=== PATIENT | female | born 1970 | race African-American/Black ===

== ENCOUNTER 2024-06-07 21:04 | Observation (INO) | payer OTHER, SELFPAY ==
[2024-06-07 17:12] VITALS: BP 107/69
--- NOTE | 2024-06-07 18:44 | ED.GENMED ---
History of Present Illness
General
Chief Complaint: Catheter/Tube Problem
Time Seen by Provider: 06/07/24 18:08
History of Present Illness
History of Present Illness:
53-year-old woman presenting to the emergency department with trach dislodgment. All history is obtained from patient's family at bedside. States that in March she had a trach and PEG placed after a cardiac arrest and stroke. She was sent to
[facility] 3 weeks ago for rehab. There unfortunately patient was not evaluated by respiratory therapist or repair miller regarding patient's tracheostomy care. Per family she was on room air and intermittent blow-by. She was never on a vent at
rehab. She should that intermittently patient was pulling at her tracheostomy tube. They are unsure when she officially pulled it out but they last saw in place yesterday. No capping trials were completed.
Phy Exam
Physical Exam
Physical Exam:
GENERAL: in no acute distress
HEENT: normocephalic, extraocular movements intact, moist oral mucosa
NECK: Prior tracheostomy site that appears closed
RESPIRATORY: no respiratory distress, clear to auscultation bilaterally
CARDIOVASCULAR: regular rate and rhythm
ABDOMEN/: soft, non-distended, non-tender to palpation, no rebound or guarding
NEUROLOGIC: awake and alert
SKIN: warm
Course
Orders/Labs/Results
Orders:
Orders
06/07/24 19:05
Basic Metabolic Panel Urgent
CBC/With Diff [Complete Blood Count/With Diff] Urgent
Vital Signs
Initial and Last Documented VS:
Initial Vital Signs
Temp Pulse Resp BP Pulse Ox
99.4 F 109 18 107/69 99
06/07/24 17:12 06/07/24 17:12 06/07/24 17:12 06/07/24 17:12 06/07/24 17:12
Last Documented Vital Signs
Temp Pulse Resp BP Pulse Ox
99.4 F 109 18 107/69 99
06/07/24 17:12 06/07/24 17:12 06/07/24 17:12 06/07/24 17:12 06/07/24 17:12
MDM/Problems Addressed
Differential Diagnosis Includes:
Patient is a 53-year-old woman with trach PEG placed in March presenting to the emergency department after she removed her trach. Patient did have a 7.[address] We did attempt to replace it with both the 6 5 and 7 5 appears to be close
as there was significant resistance and no clear opening. Her pulse ox is normal and patient does appear resting comfortably with no respiratory distress. No emergent need for endotracheal intubation. I did discuss with ENT on-call regarding
options. He recommended placing a 4.0. I did update patient's family members at bedside of this. However since patient has been on room air most of the time and would remove the blow-by the family would prefer not to have a tracheostomy in
place. Since that patient has never had a trial patient will need to be admitted for monitoring while there is no tracheostomy in place. Discussed with hospitalist who excepted patient to their service
*Critical Care Note
Total Time (30-74mins, 75-104mins- exclusive of procedures): Not Applicable
ED Attending Note
-
Portions of this chart may have been created with voice recognition software.� Occasional wrong word or��sound alike� substitutions may have occurred due to the inherent limitations of voice recognition software.
Discharge Plan
Departure
Patient Disposition: Admit
Date of Disposition: 06/07/24
Time of Disposition: 19:16
Presentation/result/management discussed w/ accepting MD/DO: Hospitalist
Discharge Problem:
Tracheostomy complication
Referrals:
Wicho Aaron DO [Family Provider] -
Interventions
Interventions:
*Risk Screen - Suicide Last Done: 06/07/24 17:12
*General Assessment Last Done: 06/07/24 17:12
*Neglect/Abuse Screening Last Done: 06/07/24 17:12
FE-Liwzxl-Nzmimsluzf Assessment Last Done: 06/07/24 18:25
ED-Female Genitourinary Assessment Last Done: 06/07/24 18:25
Discharge Date and Time
Print Language: GREENLANDIC
[2024-06-07 19:33] LABS: % Basophils 0.4 % (0-2); % Eosinophils 1.3 % (0-6); % Immature Granulocytes 0.4 % (0-0.5); % Lymphocytes 46.5 % (20.5-51.1); % Monocytes 7.3 % (1.7-9.3); % Neutrophils 44.1 % (42.2-75.2); Absolute Eosinophils 0.1 10^3/uL (0-0.7); Absolute Lymphocytes 2.6 10^3/uL (1.2-3.4); Absolute Monocytes 0.4 10^3/uL (0.1-0.6); Absolute Neutrophils 2.4 10^3/uL (1.4-6.5); Hematocrit 25.3 % (37.0-47.0); Hemoglobin 8.5 g/dL (12.0-16.0); Mean Corp Hgb Conc. 33.6 g/dL (33.0-37.0); Mean Corpuscular Hgb 28.9 pg (27.0-31.0); Mean Corpuscular Volume 86.1 fL (81.0-99.0); Mean Platelet Volume 8.6 fL (7.4-10.4); Nucleated Red Blood Cells % 0 %; Platelet Count 355 10^3/uL (130-400); Red Blood Cell Count 2.94 10^6/uL (4.20-5.40); Red Cell Dist. Width 13.3 % (11.5-14.5); White Blood Cell Count 5.5 10^3/uL (4.8-10.8)
[2024-06-07 19:54] LABS: Blood Urea Nitrogen 21 mg/dl (7-17); Calcium 10.3 mg/dl (8.4-10.2); Carbon Dioxide 34 mmol/L (22-30); Chloride 95 mmol/L (98-107); Glucose 118 mg/dl (70-99); Sodium 132 mmol/L (135-145); eGFR 25.11
--- NOTE | 2024-06-07 19:55 | HPS.HSE ---
Family Physician
-
Family Physician: Wicho Aaron, DO
Chief Complaint
-
pulled trach
History of Present Illness
Ms. Janette Santos is a 53 yo woman with hx PE/cardiac arrest and CVA March 2024 s/p trach/PEG now at [facility] and pulled out her tracheostomy tube at some point over past 24 hours.
History obtained from patient at bedside. They saw patient with trach in yesterday but she has been pulling at it, concern is that it has been becoming dislodged. Dr. Cosby tried to replace trach but was difficult even with smaller size, difficult
to find hole. Case discussed with ENT. Family states patient has been on room air, therefore requesting to avoid continued attempts to replace.
Medical History
Past Medical History
Past Medical History: Reports Other (PE/cardiac arrest and CVA March 2024 s/p trach/PEG now at [facility])
Past Surgical History: Reports Other
Social History
Tobacco: Non-smoker
Alcohol: None
Family History
Family History: Not pertinent
Allergies / Home Medications
Allergies reflects when Allergies were last updated in [employer].
Home Medications with original date entered in [employer]
Allergy/Medication List:
Allergies
Allergy/AdvReac Type Severity Reaction Status Date / Time
acetaminophen Allergy Unknown Verified 06/07/24 20:20
oxycodone Allergy Unknown Verified 06/07/24 20:20
Home Medications
apixaban 5 mg tablet 5 mg feeding tube BID 06/07/24
bisacodyl 10 mg rectal suppository 10 mg SC DAILY PRN constipation 06/07/24
carvedilol 6.25 mg tablet 6.25 mg feeding tube BID 06/07/24
divalproex 125 mg capsule,delayed release sprinkle (Depakote Sprinkles) 125 mg PO Q12 06/07/24
hydralazine 10 mg tablet 10 mg feeding tube TID 06/07/24
hydroxyzine HCl 10 mg/5 mL oral solution 10 mg feeding tube QID 06/07/24
insulin glargine 100 unit/mL subcutaneous solution 8 unit SC QPM 06/07/24
lorazepam 1 mg tablet (Ativan) 1 mg feeding tube Q4H 06/07/24
Review of Systems
-
Unable to obtain full review of systems at this time due to: Patient Non-verbal
History Source: Patient
Physical Exam
Vital Signs
Vital Signs
Temp Pulse Resp BP Pulse Ox
99.4 F 109 18 107/69 99
06/07/24 17:12 06/07/24 17:12 06/07/24 17:12 06/07/24 17:12 06/07/24 17:12
Physical Exam
General: Other (patient sedated but awakens briefly to voice )
HEENT: PERRLA
Respiratory: Clear; No Wheezes
Cardiac: S1/S2 and Regular Rhythm
GI: Soft, Non Tender and Peg Tube
Musculoskeletal: No Edema
Skin: Warm and Dry; No Rash
Neuro: Sedated
Psych: Calm
Laboratory Results
-
06/07/24 19:21
06/07/24 19:21
Data Reviewed
-
Diagnostic Radiology: Report Reviewed by me
Lab Data: Labs Reviewed by me
Impression/Plan
-
Ms. Janette Santos is a 53 yo woman with hx cardiac arrest and CVA March 2024 s/p trach/PEG now at [facility] and pulled out her tracheostomy tube at some point over past 24 hours.
Triage VS: T 99.4, P 109, RR 18, BP 107/69, SpO2 99%
LABS: WBC 5.5, Hg 8.5, PLT 355, Na 132, Cl 95, CO2 34, BUN 21, Cr 2.3, Glucose 118
Pulled Trach
-per family, patient has been on room air and intermittent blow by; she was not on a vent at rehab. ENT recommending placing a 4.0; family would want to avoid this. Per ER provider, finding hole for trach was difficult, unclear how long it had
been dislodged
-admit to tele with pulse ox monitoring
-ENT consult
ESRD on HD
-Renal consulted; patient receives HD MWF
Pulmonary Embolism
-continue NEUROLOGY HOSPITALIST Eliquis
s/p cardiac arrest
CVA with PEG/ Trach
-TF to start tomorrow
-family hoping to change NH placement (live in [place])
Essential HTN
-NEUROLOGY HOSPITALIST Hydralazine
Anxiety/Agitation
-continue NEUROLOGY HOSPITALIST Depakote
-patient's home meds state 1mg Ativan q 4 hours; she is very sedated. Family is hopeful that now that she won't be bothered by trach, can lower Ativan dosing
-will write for 1mg [id number] here with PRN
-also has PRN Hydroxyzine (was written as standing at [place])
Anemia
-unclear baseline
-add on iron studies
IDDM
-hold NEUROLOGY HOSPITALIST lantus as will not receive TF tonight
-ISS low
DVT PPx NEUROLOGY HOSPITALIST Eliquis
FULL CODE - confirmed with family at admission
Nephew also gave me his number,
[2024-06-07] MEDS: DEPAKOTE SPRINKLE 125 MG TUBE (20:59)
[2024-06-07] MEDS: ELIQUIS 5 MG TUBE (20:59)
[2024-06-07 21:10] LABS: ALT (SGPT) 26 U/L (0-35); AST (SGOT) 33 U/L (14-36); Albumin 3.2 g/dl (3.5-5.0); Alkaline Phosphatase 82 U/L (38-126); Direct Bilirubin 0.4 mg/dl (0.0-0.4); Iron 75 ug/dl (37-170); Potassium 3.3 mmol/L (3.5-5.1); Total Bilirubin 0.7 mg/dl (0.2-1.3); Total Protein 6.3 g/dl (6.3-8.2)
[2024-06-07 21:17] LABS: Percent Saturation 36 % (20-50); Total Iron Binding Capacity 203 ug/dl (265-497)
[2024-06-07] MEDS: KCL ELIXIR 20 MEQ TUBE (21:57)
[2024-06-07 22:02] LABS: Vitamin B12 740 pg/ml (239-931)
[2024-06-07 22:13] VITALS: BP 104/70
[2024-06-08] VITALS (34 sets, daily range): BP systolic 88–200; BP diastolic 49–178
[2024-06-08] MEDS: ATIVAN 1 MG TUBE ×2 (01:36→08:30)
[2024-06-08] MEDS: COREG 6.25 MG TUBE (01:36)
[2024-06-08] MEDS: APRESOLINE 10 MG TUBE (01:37)
[2024-06-08 05:24] LABS: Glucose - Point of Care 130 mg/dl (70-99)
[2024-06-08 07:01] LABS: Hematocrit 25.9 % (37.0-47.0); Hemoglobin 8.3 g/dL (12.0-16.0); Mean Corpuscular Volume 90.6 fL (81.0-99.0); Mean Platelet Volume 9.2 fL (7.4-10.4); Platelet Count 419 10^3/uL (130-400); Red Blood Cell Count 2.86 10^6/uL (4.20-5.40); Red Cell Dist. Width 13.3 % (11.5-14.5); White Blood Cell Count 4.8 10^3/uL (4.8-10.8)
[2024-06-08 07:23] LABS: Blood Urea Nitrogen 23 mg/dl (7-17); Calcium 10.4 mg/dl (8.4-10.2); Carbon Dioxide 35 mmol/L (22-30); Chloride 96 mmol/L (98-107); Glucose 125 mg/dl (70-99); Potassium 3.5 mmol/L (3.5-5.1); Sodium 135 mmol/L (135-145); eGFR 22.71
[2024-06-08] MEDS: ELIQUIS 5 MG TUBE (08:30)
[2024-06-08 08:56] LABS: Glucose - Point of Care 122 mg/dl (70-99)
--- NOTE | 2024-06-08 09:08 | W.CON.NEPH ---
Consultation
-
Date/Time Consultation Requested: 06/08/24 0005
Date/Time Consultation Performed: 06/08/24929
Requesting Provider: Susy Cloud
Performing Provider: Cookie Montiel
Reason for Consultation: ESRD
Medical History
-
Chief Complaint: Dislodged Trach
History of Present Illness:
53 yo woman with hx ESRD on MWF HD, IDDM, HTN on coreg, hydralazine and midodrine on HD days, PE/cardiac arrest on AC with ELiquis, CVA March 2024 s/p trach/PEG now at [facility] brought in for dislodgement of her tracheostomy tube at some point
over past 24 hours.
History obtained from chart. Reportedly patient with trach in yesterday but she has been pulling at it, concern is that it has been becoming dislodged. It was difficult to replace trach despite down sizing, and family wants not to try replacing it.
She is admitted for further observation.
She is on Depakote and Keppra for ?SZDO. Chronic anemia on Aranesp. Pt has expressive aphasia and unable to provide history.
NO noted fever, chills. Not on O2.
Past Medical History
PE/cardiac arrest and CVA March 2024 s/p trach/PEG
Past Surgical History: Other (trach, peg)
Social History
Tobacco: Non-Smoker
Alcohol: None
Living: Long-Term (now at [facility])
Family History
Family History: Unable to Obtain
Allergies / Home Medications
Allergy/AdvReac Type Severity Reaction Status Date / Time
acetaminophen Allergy Unknown Verified 06/07/24 20:20
oxycodone Allergy Unknown Verified 06/07/24 20:20
�Medication �Instructions �Recorded �Confirmed �Type
apixaban 5 mg tablet 5 mg feeding tube BID 06/07/24 06/07/24 History
bisacodyl 10 mg rectal suppository 10 mg MO DAILYPRN PRN constipation 06/07/24 06/08/24 History
carvedilol 6.25 mg tablet 6.25 mg feeding tube BID 06/07/24 06/07/24 History
divalproex 125 mg capsule,delayed 125 mg Q12 06/07/24 06/08/24 History
release sprinkle (Depakote
Sprinkles)
hydralazine 10 mg tablet 10 mg feeding tube TID 06/07/24 06/07/24 History
hydroxyzine HCl 10 mg/5 mL oral 10 mg feeding tube QID 06/07/24 06/07/24 History
solution
insulin glargine 100 unit/mL 8 unit SC QPM 06/07/24 06/07/24 History
subcutaneous solution
lorazepam 1 mg tablet (Ativan) 1 mg feeding tube Q4H 06/07/24 06/07/24 History
Darbepoetin Stuart Injection Anay 25 mg SC FR 06/08/24 06/08/24 History
diphenhydramine HCl 25 mg tablet 25 mg PO Q6HPRN PRN itching 06/08/24 06/08/24 History
insulin regular human 100 unit/mL 10 sliding scale dose SC ACHS 06/08/24 06/08/24 History
injection solution
levetiracetam 500 mg tablet 500 mg PO BID 06/08/24 06/08/24 History
(Keppra)
lorazepam 1 mg tablet 1 mg PO MOWEFR 1 hour before 06/08/24 06/08/24 History
dialysis
midodrine 5 mg tablet 5 mg feeding tube MOWEFR 06/08/24 06/08/24 History
modafinil 100 mg tablet 50 mg feeding tube DAILY 06/08/24 06/08/24 History
mupirocin calcium 2 % topical cream 1 applic topical DAILY groin wound 06/08/24 06/08/24 History
ondansetron HCl 4 mg tablet 4 mg feeding tube Q8HPRN PRN nausea 06/08/24 06/08/24 History
scopolamine base 1 mg over 3 days 1 patch transdermal Q3D 06/08/24 06/08/24 History
transdermal patch
tramadol 50 mg tablet 50 mg feeding tube TIDPRN PRN 06/08/24 06/08/24 History
moderate pain
Review of Systems
-
Pt is non verbal, unable to obtain
Physical Exam
Vital Signs
Vital Signs
Temp Pulse Resp BP Pulse Ox
98.4 F 96 20 151/124 100
06/08/24 08:10 06/08/24 08:10 06/08/24 08:10 06/08/24 08:15 06/08/24 08:15
Lab Results
WBC 4.8 10^3/uL (4.8-10.8) 06/08/24 05:23
RBC 2.86 10^6/uL (4.20-5.40) L 06/08/24 05:23
Hgb 8.3 g/dL (12.0-16.0) L 06/08/24 05:23
Hct 25.9 % (37.0-47.0) L 06/08/24 05:23
Plt Count 419 10^3/uL (130-400) H 06/08/24 05:23
Sodium 135 mmol/L (135-145) 06/08/24 05:23
Potassium 3.5 mmol/L (3.5-5.1) 06/08/24 05:23
Chloride 96 mmol/L (98-107) L 06/08/24 05:23
Carbon Dioxide 35 mmol/L (22-30) H 06/08/24 05:23
BUN 23 mg/dl (7-17) H 06/08/24 05:23
Creatinine 2.5 mg/dL (0.6-1.0) H 06/08/24 05:23
eGFR 22.71 06/08/24 05:23
Glucose 125 mg/dl (70-99) H 06/08/24 05:23
Calcium 10.4 mg/dl (8.4-10.2) H 06/08/24 05:23
Albumin 3.2 g/dl (3.5-5.0) L 06/07/24 20:38
Physical Exam
General: Awake, Alert, No Distress and Nontoxic
HEENT: EOMI and Neck Supple
Respiratory: Rhonchi, Normal Excursion and Nonlabored Respirations
Cardiac: S1/S2 and Regular Rate/Rhythm
Breast: Deferred by me
Abdomen: Soft, Nontender and Nondistended
Musculoskeletal: No Cyanosis and No Edema
Skin: No Rash
Neuro: Other (difficult to assess with aphasia and known CVA)
Psych: Other (difficult to assess with aphasia)
Data Reviewed
-
Labs: Labs Reviewed by me
Assessment/Plan
-
IMP:
Pulled Trach
ESRD on HD
Pulmonary Embolism
s/p cardiac arrest
CVA with PEG/ Trach
Essential HTN
Anxiety/Agitation
Anemia
IDDM
CVC HD catheter
Plan:
A/w trach dislodgement
HD as per schedule today
BP stable, on midodrine pre HD prn
PETER for anemia, adequate fe stores
calcium slightly high, low jazlyn bath, check PTH
[2024-06-08] MEDS: RETACRIT 10000 UNITS IV (10:00)
[2024-06-08 10:05] LABS: Glycohemoglobin (HgbA1c) 5.2 % (4.0-5.6)
--- NOTE | 2024-06-08 10:26 | W.PN.NEPH.HD ---
Assessment
-
pt seen during HD
vitals stable
midodrine pre HD
UF as tolerates
on RA currently
CVC functions well
Progress Note - Hemodialysis
-
Date of Service: June 08, 2024
Duration: 30 minutes and 3 hours
Potassium Bath: 3
Calcium Bath: 2
Opti-Dialyzer: 160
Ultrafiltration: Other (1-1.5)
Blood Flow: 400
Dialysate Flow: 600
Heparin: no
EPO: [id number]
[2024-06-08 10:33] LABS: Hepatitis B Surface Antigen Negative (Negative)
[2024-06-08 10:50] LABS: Hepatitis B Surface Antibody Negative
--- NOTE | 2024-06-08 11:01 | CM ---
Addendum entered by Halima Workman RN 06/08/24 12:22:
CM updated Abebe and patient's Gera with plan to return to [facility]. Family had multiple concerns, but are willing to work with [facility] to find alternative placement.
Addendum entered by Halima Workman RN 06/08/24 11:38:
CM spoke with [facility]. THey are able to accept without a new authorization.
[facility]
[phone]

CM spoke with patient's son Abebe. He has objections to returning to [facility]. CM advised son that [facility] will have to find alternative placement for patient. Abebe has multiple questions regarding patient seeing a 'respiratory' doctor.
CM forwarded patient's son's concerns to hospitalist.
Original Note:
CM reviewed medical records. Plan for patient to return to [facility]. CM left message for admission coordinator to coordinate return.
[2024-06-08] MEDS: ULTRAM 50 MG TUBE (12:05)
--- NOTE | 2024-06-08 12:15 | CON.MD ---
Consultation - Medical
-
Chief complaint: Tracheotomy tube displaced
History of present illness: This 53-year-old woman with a history of chronic medical problems including renal failure and respiratory disease had a tracheotomy tube placed several months ago while she was hospitalized. She was then in rehab. Her
tracheotomy tube displaced and she presented to the emergency room. The patient's family stated they did not want the tracheotomy tube replaced. The patient is stable in the emergency room. The staff was wondering whether the tube should or
should not be replaced. An attempt was made by the emergency room staff to replace the tracheotomy tube but this was unsuccessful.
Past medical history:
Illnesses: renal failure, respiratory failure, status post tracheotomy, skin breakdown and wound complications, insulin-dependent diabetes mellitus, hypertension, chronically anticoagulated with Eliquis
Allergies: Acetaminophen and oxycodone with unknown reactions
Home medications: Apixaban 5 mg per feeding tube twice daily, bisacodyl 10 mg p.r. Daily as needed, carvedilol 6.25 mg per feeding tube twice daily, darbepoetin alpha injection 25 mg subcu Fridays, Diphenhydramine 25 mg p.o. every 6 hours as needed
Depakote sprinkles 125 mg p.o. twice daily, hydralazine 10 mg per feeding tube 3 times daily, hydroxyzine 10 mg per feeding tube 4 times daily, insulin glargine 8 units SQ every afternoon, insulin regular human 10 sliding scale dose, Keppra 500 mg
p.o. twice daily, lorazepam 1 mg p.o. Tuesday before dialysis, Ativan 1 mg per feeding tube every 4 hours, midodrine 5 mg per feeding tube Tuesday, modafinil 50 mg per feeding tube daily, mupirocin calcium 1
application topical to groin wound daily, ondansetron 4 mg every 8 hours as needed nausea vomiting, scopolamine base 1 patch transdermal every 3 days, tramadol 50 mg per feeding tube 3 times daily
Hospitalizations: The patient has been hospitalized for respiratory failure had a tracheotomy tube placed recently. She also has renal failure and a seizure disorder.
Family history: Asked and is noncontributory
Surgical history: The patient underwent tracheotomy several months ago
Review of systems: History of multiple medical problems, denies respiratory distress, denies throat pain
Physical examination:
Head: Atraumatic and normocephalic
Eyes: Extraocular movements are intact and pupils are equal and reactive to light
nose: Normal to examination
Mouth: Normal to examination
Neck: Supple: Without adenopathy: Tracheotomy site has a scab over it. The tracheotomy site is not open. There is no air leak through the tracheotomy site. A flexible laryngoscope could not be passed through the tracheotomy site.
Respiratory: Voice okay, no stridor present, ventilating well
Cranial nerves: 2 through 12 are intact
Salivary glands: Normal to examination
Thyroid gland: Normal
Assessment/Plan: This patient is a 53-year-old woman who had a tracheotomy tube placed recently along with a feeding tube. The tracheotomy tube fell out and she presented to the emergency room. My examination reveals that the tracheotomy tube fell
out at least a couple of days ago and more likely a week or more ago. The site is closed and the tube cannot be passed through. The patient is ventilating well and her voice is good. There is no stridor. Although would like to see a capping
trial before tracheotomy tube removal, this patient has already inadvertently had a trial of breathing without the trach tube and seems to be doing okay. She does not need the tube replaced at this point. We will see the patient back as needed.
The tracheotomy site scab will disappear over time.
[2024-06-08] MEDS: COREG TUBE (13:10)
[2024-06-08] MEDS: APRESOLINE TUBE (13:10)
--- NOTE | 2024-06-08 13:25 | W.PN.HOSP.TC ---
Addendum entered and electronically signed by Rex Rodgers MD 06/09/24 16:55:
# tracheostomy site scab will improve over time
Addendum entered and electronically signed by Rex Rodgers MD 06/09/24 16:55:
[id number]
Original Note:
Today's Communication/Plan
-
dc back to facility
can f/u with pcp outpt
Assessment / Plan
Assessment / Plan
Physical Exam
General: NAD, speaking intermittently
HEENT: PERRLA
Respiratory: Clear; No Wheezes
Cardiac: S1/S2 and Regular Rhythm
GI: Soft, Non Tender and Peg Tube
Musculoskeletal: No Edema
Skin: Warm and Dry; No Rash
Neuro: Sedated
Psych: Calm
Pulled Trach
-per family, patient has been on room air and intermittent blow by; she was not on a vent at rehab. ENT recommending placing a 4.0; family would want to avoid this. Per ER provider, finding hole for trach was difficult, unclear how long it had
been dislodged
-admit to tele with pulse ox monitoring
-ENT evaluated, sinus close and to cannot be passed through. Mentating well, voice is well. No stridor.
� Does not need to replace at this point
� Tracheostomy site scabbed Spiriva time
ESRD on HD
-Renal consulted; patient receives HD MWF
Pulmonary Embolism
-continue BAG SEALER Eliquis
s/p cardiac arrest
CVA with PEG/ Trach
-TF to start
Essential HTN
-BAG SEALER Hydralazine
Anxiety/Agitation
-continue BAG SEALER Depakote
-patient's home meds state 1mg Ativan q 4 hours; she is very sedated. Family is hopeful that now that she won't be bothered by trach, can lower Ativan dosing
-will write for 1mg [id number] here with PRN
-also has PRN Hydroxyzine (was written as standing at [place]) - will switch back and wean as tolerated outpt
Anemia
-unclear baseline
-add on iron studies
IDDM
-lantus
DVT PPx BAG SEALER Eliquis
FULL CODE - confirmed with family at admission
More than 30 minutes spent in discharge including
Final examination of the patient
Summarizing hospital stay
Instructions for continuing care to all relevant caregivers
Preparation of discharge records, prescriptions, and referral forms
Total time spent (36 in minutes):
Anticipated Discharge: Today
Subjective/Interval History
-
Date of Service: June 08, 2024
undergoing hd
Objective Data
-
Labs:
Laboratory Results
06/08/24
05:23
WBC 4.8
Hgb 8.3 L
Hct 25.9 L
Plt Count 419 H
Sodium 135
Potassium 3.5
Chloride 96 L
Carbon Dioxide 35 H
BUN 23 H
Creatinine 2.5 H
Glucose 125 H
Calcium 10.4 H
Vital Signs:
Vital Signs
Temp Pulse Resp BP Pulse Ox
98.4 F 105 29 113/93 100
06/08/24 08:10 06/08/24 12:00 06/08/24 12:00 06/08/24 12:00 06/08/24 08:15
Review of Systems
-
History Source: Patient
All other systems: Not reviewed unless documented
Data Reviewed
-
Labs: Labs Reviewed by me
--- NOTE | 2024-06-08 13:30 | W.DS.TRANS ---
DC Summary - [employer]
-
Discharge Instructions:
Discharge Diagnosis/Procedures Removal of tracheostomy tube
Diet Other diet
Additional Diets Nepro w/ Carb Steady; 55ml/hr; flush continuous
pump feedings with water - 25ml/hr; adjust as
needed
Activity As tolerated
Blood Work bmp outpt
Instructions:
Stand-Alone Forms:
Changes to Home Medications: Yes
Discharge Medications:
DC Medications w/original date entered in [email or web address]
apixaban 5 mg tablet 5 mg feeding tube BID 06/07/24
bisacodyl 10 mg rectal suppository 10 mg ME DAILYPRN PRN constipation 06/07/24
carvedilol 6.25 mg tablet 6.25 mg feeding tube BID 06/07/24
divalproex 125 mg capsule,delayed release sprinkle (Depakote Sprinkles) 125 mg Q12 06/07/24
hydralazine 10 mg tablet 10 mg feeding tube TID 06/07/24
insulin glargine 100 unit/mL subcutaneous solution 8 unit SC QPM 06/07/24
Darbepoetin Stuart Injection Anay 25 mg SC FR 06/08/24
diphenhydramine HCl 25 mg tablet 25 mg PO Q6HPRN PRN itching 06/08/24
hydroxyzine HCl 10 mg/5 mL oral solution 10 mg (5 mL) feeding tube QID #0 mL 06/08/24
insulin regular human 100 unit/mL injection solution 10 sliding scale dose SC ACHS 06/08/24
levetiracetam 500 mg tablet (Keppra) 500 mg PO BID 06/08/24
lorazepam 1 mg tablet 1 mg PO MOWEFR 1 hour before dialysis 06/08/24
lorazepam 1 mg tablet 1 mg feeding tube Q8H #0 tabs 06/08/24
lorazepam 1 mg tablet 1 mg feeding tube Q8HPRN PRN anxiety #0 tabs 06/08/24
midodrine 5 mg tablet 5 mg feeding tube MOWEFR 06/08/24
modafinil 100 mg tablet 50 mg feeding tube DAILY 06/08/24
mupirocin calcium 2 % topical cream 1 applic topical DAILY groin wound 06/08/24
ondansetron HCl 4 mg tablet 4 mg feeding tube Q8HPRN PRN nausea 06/08/24
scopolamine base 1 mg over 3 days transdermal patch 1 patch transdermal Q3D 06/08/24
tramadol 50 mg tablet 50 mg feeding tube TIDPRN PRN moderate pain 06/08/24
Home Medication Changes
orazepam 1 mg tablet 1 mg PO MOWEFR 1 hour before dialysis 06/08/24
lorazepam 1 mg tablet 1 mg feeding tube Q8H #0 tabs 06/08/24
lorazepam 1 mg tablet 1 mg feeding tube Q8HPRN PRN anxiety #0 tabs 06/08/24
Pending Results: No
[2024-06-08 13:39] LABS: Glucose - Point of Care 108 mg/dl (70-99)
[2024-06-08] MEDS: KEPPRA 500 MG TUBE (13:48)
[2024-06-08] MEDS: DEPAKOTE SPRINKLE 125 MG TUBE (13:48)
[2024-06-08] MEDS: TRANSDERM-SCOP 1 PATCH TRANSDERM (14:05)
--- NOTE | 2024-06-08 15:53 | PTCARENOTE ---
Rn Flow instrumentation specialist- Patient cleared for d/c. Report given to correction by Itzel. Patient left department in ambulance. Instructions reviewed by Itzel with receiving nurse.
== END 2024-06-08 15:54 ==
LOC: ED 21:04
PROVIDERS: ADMITTING PHYSICIAN Student in an Organized Health Care Education/Training Program; ATTENDING PHYSICIAN Internal Medicine; EMERGENCY PHYSICIAN Student in an Organized Health Care Education/Training Program; FAMILY PHYSICIAN Internal Medicine; OTHER PHYSICIAN Internal Medicine; OTHER PHYSICIAN Otolaryngology Facial Plastic Surgery
DX: J95.09 Other tracheostomy complication (principal); Y84.8 Other medical procedures as the cause of abnormal reaction of the patient, or of later complication, without mention of misadventure at the time of the procedure; Y92.9 Unspecified place or not applicable; N18.6 End stage renal disease; E11.22 Type 2 diabetes mellitus with diabetic chronic kidney disease; I12.0 Hypertensive chronic kidney disease with stage 5 chronic kidney disease or end stage renal disease; R45.1 Restlessness and agitation; F41.9 Anxiety disorder, unspecified; D64.9 Anemia, unspecified; R47.01 Aphasia; Z86.73 Personal history of transient ischemic attack (TIA), and cerebral infarction without residual deficits; Z86.74 Personal history of sudden cardiac arrest; Z86.711 Personal history of pulmonary embolism; Z79.01 Long term (current) use of anticoagulants; Z88.6 Allergy status to analgesic agent; Z88.5 Allergy status to narcotic agent; Z79.4 Long term (current) use of insulin; Z99.2 Dependence on renal dialysis
CPT/HCPCS: 80048; 80076; 82607; 82728; 82962; 83036; 83540; 83550; 83735; 84132; 85025; 85027; 86706; 87340; 99285; G0257; G0378; Q5106

== ENCOUNTER 2024-07-11 19:38 | Emergency (ER) | payer OTHER, SELFPAY ==
[2024-07-11 19:41] VITALS: BP 123/80
--- NOTE | 2024-07-11 20:00 | ED.GENMED ---
History of Present Illness
General
Chief Complaint: Catheter/Tube Problem
Time Seen by Provider: 07/11/24 20:00
History of Present Illness
History of Present Illness:
TIME OF INITIAL ENCOUNTER:
HPI: The patient came in by ambulance from [facility] due to concerns of blockage of the feeding tube. She has a G-tube since the end of last year at least. She has been at [facility] over the last 2 months. The patient has a history
of cardiac arrest. They tried to irrigate the G-tube and this was unsuccessful at [facility].
EXAM:
GENERAL: Chronically ill in appearance, appears somewhat uncomfortable, she appears impulsive
HEENT: Moist oral mucosa
ABDOMEN: There is a feeding tube in the central abdomen
NEUROLOGIC: The patient is aphasic and provides no meaningful history, weak in all extremities
NUMBER AND COMPLEXITY OF PROBLEMS ADDRESSED AT THE ENCOUNTER
� Chronic conditions affecting care: Cardiac arrest, but details of the event are unclear even when I called over to [facility] CKD on HD, history of PE, has had GI bleed,
� Acute Exacerbation and/or Progression of Chronic Illness: This is an acute problem
� Differential Diagnosis includes: Feeding tube malfunction
AMOUNT AND/OR COMPLEXITY OF DATA TO BE REVIEWED AND ANALYZED
� I performed an independent evaluation of and my interpretation is:
EKG:
CT:
X-rays: Confirmatory study shows good place
Laboratory Studies:
Other:
� Review of other/old records: I reviewed the records from [facility] including the orders from [facility]
� Clinical information was obtained by an independent historian: I spoke to nurse at [facility]
� Prescriptions/Medications Considered but not given:
� Further testing considered but not performed:
RISK OF COMPLICATIONS AND/OR MORBIDITY OR MORTALITY OF PATIENT MANAGEMENT
� Social determinants of health affecting care: Resides at [facility]
� Discussion with other providers:
� Escalation of care including admission/observation vs risk of discharge considered: Very limited records, no significant records at [facility]. I called [facility]. They tell me this is a G-tube. I removed the G-tube in its
entirety, no evidence that this is a GJ tube. We easily placed a new G-tube and stomach contents noted through the output. Will send for confirmatory study
ANY OTHER UPDATES:
Phy Exam
Physical Exam
Physical Exam:
See HPI
Course
Orders/Labs/Results
Orders:
Orders
07/11/24 20:27
CR Cont Inj Eval Tube(by Rad) Urgent
Comment:
Reason For Exam: placed new G tube in ED; confirm placement
Vital Signs
Initial and Last Documented VS:
Initial Vital Signs
Temp Pulse Resp BP Pulse Ox
37.3 C 101 20 123/80 98
07/11/24 19:41 07/11/24 19:41 07/11/24 19:41 07/11/24 19:41 07/11/24 19:41
Last Documented Vital Signs
Temp Pulse Resp BP Pulse Ox
37.3 C 101 20 123/80 98
07/11/24 19:41 07/11/24 19:41 07/11/24 19:41 07/11/24 19:41 07/11/24 19:41
Procedures
Other
Indication for procedure:: Gastric tube placement due to clogged tube
Procedure completed by: Me, Dr. Rodriguez
Consent form signed: No
If no, reason: Emergency procedure
Additional Procedure:
A new 16 Polish feeding tube was placed in 1 attempt without any difficulty in confirmatory study shows good placement.
*Critical Care Note
Total Time (30-74mins, 75-104mins- exclusive of procedures): Not Applicable
ED Attending Note
-
Portions of this chart may have been created with voice recognition software.� Occasional wrong word or��sound alike� substitutions may have occurred due to the inherent limitations of voice recognition software.
Discharge Plan
Departure
Patient Disposition: Home (Routine Discharge)
Date of Disposition: 07/11/24
Time of Disposition: 21:41
Patient with high blood pressure during this ER visit?: Yes
Discharge Problem:
Clogged feeding tube
Prescriptions:
No Action
apixaban 5 mg Tablet
5 mg feeding tube BID
hydralazine 10 mg Tablet
10 mg feeding tube TID
carvedilol 6.25 mg Tablet
6.25 mg feeding tube BID
insulin glargine 100 unit/mL Solution
8 unit SC HS
bisacodyl 10 mg Suppository
10 mg WV DAILYPRN PRN (Reason: constipation)
divalproex [Depakote Sprinkles] 125 mg Capsule, Delayed Rel Sprinkle
250 mg Q8H
Rx Instructions:
PEG tube
levetiracetam [Keppra] 500 mg Tablet
500 mg BID
Rx Instructions:
peg-tube
ondansetron HCl 4 mg Tablet
4 mg feeding tube Q8HPRN PRN (Reason: nausea)
midodrine 5 mg Tablet
5 mg feeding tube MOWEFR
Rx Instructions:
1 hour before dialysis
tramadol 50 mg Tablet
50 mg feeding tube TIDPRN PRN (Reason: mild pain)
insulin regular human 100 unit/mL Solution
10 unit SC Q6H
mupirocin calcium 2 % Cream
1 applic TOPICAL DAILY
modafinil 100 mg Tablet
50 mg feeding tube DAILY
darbepoetin benji in polysorbat 25 mcg/mL Solution
25 mcg SC FR Qty: 0
Rx Instructions:
given at diaylsis staff
ipratropium-albuterol 0.5 mg-3 mg(2.5 mg base)/3 mL Solution For Nebulization
3 ml INHALATION R [id number] PRN (Reason: sob)
fexofenadine 60 mg Tablet
60 mg feeding tube Q6HPRN PRN (Reason: allergies)
hydroxyzine HCl 10 mg/5 mL solution
20 mg feeding tube QID
lorazepam 1 mg tablet
1 mg feeding tube [id number] PRN (Reason: anxiety)
lorazepam 1 mg tablet
1 mg feeding tube Q6HPRN PRN (Reason: anxiety)
Referrals:
Wicho Aaron, DO [Family Provider] -
Activity Restrictions/Additional Instructions:
I placed a new 16 Polish gastric feeding tube. Of note, the new tube length is shorter than the tube that she came in with. Confirmatory contrast-enhanced x-ray was obtained which confirms appropriate placement and tube is ready for immediate use.
Interventions
Interventions:
*Risk Screen - Suicide Last Done: 07/11/24 19:51
*General Assessment Last Done: 07/11/24 19:51
*Neglect/Abuse Screening Last Done: 07/11/24 19:51
*ED- Fall Risk Assessment Last Done: 07/11/24 19:50
*ED COVID-19 Vaccine History Last Done: 07/11/24 19:50
Discharge Date and Time
Print Language: SINHALA
[2024-07-11 21:52] LABS: Glucose - Point of Care 118 mg/dl (70-99)
[2024-07-11 21:55] VITALS: BP 145/81
[2024-07-11 22:36] VITALS: BP 146/81
== END 2024-07-11 22:46 ==
LOC: EMR 19:38
PROVIDERS: EMERGENCY PHYSICIAN Emergency Medicine; FAMILY PHYSICIAN Internal Medicine
DX: K94.23 Gastrostomy malfunction (principal); Z86.74 Personal history of sudden cardiac arrest
CPT/HCPCS: 43762; 99284; 49465; 82962

== ENCOUNTER → 2024-07-17 09:24 | Outpatient (REF) | payer OTHER, SELFPAY | LOC: RADI 09:24 | PROVIDERS: ATTENDING PHYSICIAN Internal Medicine | DX: Z49.01 Encounter for fitting and adjustment of extracorporeal dialysis catheter (principal); N18.6 End stage renal disease | CPT/HCPCS: 36589 ==

== ENCOUNTER 2024-07-19 17:27 | Inpatient (IN) | payer OTHER, SELFPAY ==
[2024-07-19] VITALS (9 sets, daily range): BP systolic 110–137; BP diastolic 64–89; BMI 30.3
--- NOTE | 2024-07-19 11:41 | ED.GENMED ---
History of Present Illness
General
Chief Complaint: Catheter/Tube Problem
Source: intermediate
Exam Limitations: clinical condition
Time Seen by Provider: 07/19/24 10:48
History of Present Illness
History of Present Illness:
53-year-old female apparently was found this morning with her G-tube out. Could have been out all night. Time course unknown. Patient without complaints. Replaced on 07 11 without difficulty with a 16 Ivorian tube
Past History
Past History
ED Past Medical History: HTN, IDDM, Other (Status postcardiac arrest) and Other (Pulmonary emboli. Renal failure)
Social History
Living: intermediate
Review of Systems
Review of Systems
All Other Systems: Not applicable
Phy Exam
Physical Exam
Physical Exam:
GENERAL: Alert. Mildly confused. Complaining of a dry mouth
EYE: Orbits normal.
NECK: Supple, no significant adenopathy.
ENT: Pharynx without erythema. Dry lips
CARDIAC: Regular rate and rhythm without any obvious murmurs.
LUNGS: No respiratory distress. Occasional rhonchi
ABDOMEN: Soft, without focal tenderness or distention. G-tube site left upper abdomen relatively clean. Very small amount of blood at the site
SKIN: Warm and dry, no rash or lesion, no discoloration, skin intact.
MUSCULOSKELETAL: No edema,no deformity.Good color
PSYCH: Anxious
Course
Orders/Labs/Results
Orders:
Orders
07/19/24 Breakfast
NPO
Allow oral meds: No
Allow clear liquids: No
NPO with Ice Chips: No
Comment: Nystatin Swish and Spit is OK- Not Swallow
07/19/24 11:15
Lidocaine 2% [Lidocaine Uro-Jet 2%] 1 syringe .ROUTE .STK-MED ONE
07/19/24 12:17
Consult Interventional Radiology [IRAD CONSULT] Urgent
Consulting Provider: Tuan Anders
Was physician already notified: Yes
Reason for Consult/Procedure: g tube placement
Acknowledgement that appropriate orders are entered: Yes
07/19/24 15:14
0.9% Sodium Chloride 500 ml [Nss] 500 ml IV 125 mls/hr
07/19/24 15:15
Speech Therapy Eval & Treat Routine
Treatment: eval for safety of oral diet- -- family declines replacement of peg in ER
07/19/24 16:01
Basic Metabolic Panel Urgent
Complete Blood Count/With Diff Urgent
07/19/24 16:33
Admit/Transfer Patient As Directed
Co-Sign Provider:
Level of Care: Inpatient admission
Assign to:: Medical/Surgical
Physician / Group: Basilio
Diagnosis: Dysphagia
Reason for Hospitalization: IVFs, VSE
Expected length of stay greater than two midnights?: Yes
ELOS- Estimated Length of Stay in days: 3
I certify the patient meets the requirements for IP care: Yes
PRN Pain Medication Management As Directed
May give lesser potent ordered pain med per pt: Yes
preference::
Protocol:: Medication orders for pain may be administered in a
manner that supports deferring to patient preference
when the pt is:
- Requesting an ordered lesser potent pain medication.
Least to most potent pain medications are defined
as: acetaminophen < NSAID < tramadol < opioids
(morphine, oxycodone, hydromorphone).
- Requesting a lesser dose of the same medication IF
ORDERED.
- Requesting a less intrusive route of administration
if both routes are prescribed by the provider (PO <
IV).
07/19/24 16:37
Code Status As Directed
Resuscitation Status: Full Code
07/19/24 16:48
Potassium Urgent
07/19/24 16:56
Heparin Protocol- PTT Orders As Directed
PTT per Heparin protocol: -Obtain CBC and baseline PTT - if not already collected.
-Obtain PTT 6 hours from start of infusion. Then, every 6 hours until 2 consecutive
PTT's are therapeutic. Then, PTT Daily.
-With each rate change, obtain PTT every 6 hours until 2 consecutive PTT's are
therapeutic. Then, PTT Daily.
Notify MD As Directed
Notify physician if: PTT is greater than or equal to 200.
07/19/24 17:00
Heparin [id number] Units/250 ml 25,000 units in 250 ml IV PER PROTOCOL
Weight to be used for heparin protocol in kilograms (kg):: 86.5
Protocol:: DVT/PE
PTT Goal Range to be used:: PTT 73 to 111 seconds
Order type:: Initial
INITIAL Infusion Dose (UNITS/KG/hr) & then follow protocol:: 18 units/kg/hr
Infusion Dose in UNITS/hr & then follow protocol (UNITS/hr):: 1,600
INFUSION RATE in mL/hr & then follow protocol (mL/hr):: 16
For DVT/PE algorithm, re-bolus for low PTT?: No
PTT less than or equal to 64 seconds:: No Re-bolus. Increase by 300 units/hr (+ 3mL/hr)
PTT 64.1 to 72.9 seconds:: No Re-bolus. Increase by 200 units/hr (+ 2mL/hr)
PTT 73 to 111 seconds:: Target Range. No change in rate.
PTT 111.1 to 130.9 seconds:: Decrease rate by 200 units/hr (- 2 mL/hr)
PTT 131 to 199.9 seconds:: HOLD for 1 hr. Then decrease by 300 units/hr (- 3mL/hr)
PTT greater than or equal to 200 seconds:: HOLD for 2 hrs & Notify Provider. Then decrease by 300 units/hr
(- 3mL/hr)
Lab follow-up:: Each change, PTT q6h until 2 consecutive are therapeutic. Then
PTT daily.
07/19/24 17:02
PTT Urgent
07/19/24 19:36
Acetaminophen [Tylenol] 650 mg PO Q4HPRN PRN
Dextrose 50%-Water [Dextrose 50% Syringe] 12.5 grams IV [id number] PRN
Glucagon [GlucaGen] 1 mg IM PRN PRN
HydrALAZINE [Apresoline] 5 mg IV Q6HPRN PRN
Ipratropium/Albuterol Sulfate [Duoneb] 3 ml INH R [id number] PRN
KCl 20 Meq/0.9%Sodchl 1000 ml [NSS with KCL 20 MEQ] 20 meq in 1,000 ml IV 80 mls/hr
07/19/24 19:36
GASTROINTESTINAL CONSULT Routine
Consulting Provider: Kamilah Mccabe
Was physician already notified: Yes
Activity As Directed
Activity Level: Out of Bed- Chair
Bedside Glucose Monitoring As Directed
Frequency: AC&HS
Additional Instructions:: Change to q6h if pt on TPN, tube feeding or not eating
Sequential Compression Device [Pneumatic Compression Sleeves] As Directed
Type: Knee high
DX Deep Vein Thrombosis Video Routine
07/19/24 20:00
Levetiracetam Injectable [Keppra] 500 mg IV Q12
07/19/24 22:00
Nystatin Suspension [Mycostatin Oral Suspension] 5 ml PO QID
Valproate Sodium [Depacon] 250 mg 0.9% Sodium Chloride 50 ml [Nss] 50 ml IV Q8H
insulin glargine 4 unit SC HS
07/20/24 06:00
Videofluoroscopy [RF Video Fluoro Swallow Exam] IN AM
Comment:
Reason For Exam: Swallowing Function
07/20/24 06:11
Albumin IN AM
Basic Metabolic Panel IN AM
Complete Blood Count/No Diff IN AM
Glycohemoglobin (HgbA1c) IN AM
Magnesium IN AM
PTH [Intact PTH Includes Calcium] IN AM
Phosphorus IN AM
TSH Reflex To Free T4 IN AM
Vitamin D, 25-OH IN AM
07/20/24 07:30
Insulin Aspart Corrective Mod [Novolog Flexpen-Moderate Resistance] See Protocol SC AC
07/23/24 08:40
Complete Blood Count/No Diff Q2D
Comment: Notify MD if platelet count is <130,000 or decreases by 50% from baseline
07/25/24 06:00
Complete Blood Count/No Diff Q2D
Comment: Notify MD if platelet count is <130,000 or decreases by 50% from baseline
07/27/24 06:00
Complete Blood Count/No Diff Q2D
Comment: Notify MD if platelet count is <130,000 or decreases by 50% from baseline
07/29/24 06:00
Complete Blood Count/No Diff Q2D
Comment: Notify MD if platelet count is <130,000 or decreases by 50% from baseline
07/31/24 06:00
Complete Blood Count/No Diff Q2D
Comment: Notify MD if platelet count is <130,000 or decreases by 50% from baseline
08/02/24 06:00
Complete Blood Count/No Diff Q2D
Comment: Notify MD if platelet count is <130,000 or decreases by 50% from baseline
08/04/24 06:00
Complete Blood Count/No Diff Q2D
Comment: Notify MD if platelet count is <130,000 or decreases by 50% from baseline
Abnormal Lab Results
07/19/24 07/19/24
16:01 16:48
WBC 4.7 L 10^3/uL
(4.8-10.8)
RBC 4.06 L 10^6/uL
(4.20-5.40)
Hgb 11.2 L g/dL
(12.0-16.0)
Hct 36.2 L %
(37.0-47.0)
MCHC 30.9 L g/dL
(33.0-37.0)
Sodium 148 H mmol/L
(135-145)
Potassium 3.3 L mmol/L
(3.5-5.1)
Carbon Dioxide 34 H mmol/L
(22-30)
BUN 41 H mg/dl
(7-17)
Creatinine 2.3 H mg/dL
(0.6-1.0)
Glucose 112 H mg/dl
(70-99)
Calcium 11.0 H mg/dl
(8.4-10.2)
07/19/24 16:01
07/19/24 16:48
Vital Signs
Initial and Last Documented VS:
Initial Vital Signs
Temp Pulse Resp BP Pulse Ox
98.5 F 88 20 110/81 100
07/19/24 10:03 07/19/24 10:03 07/19/24 10:03 07/19/24 10:03 07/19/24 10:03
Last Documented Vital Signs
Temp Pulse Resp BP Pulse Ox
98.9 F 96 22 162/92 100
07/23/24 07:00 07/23/24 07:00 07/23/24 07:00 07/23/24 08:35 07/23/24 07:00
MDM/Problems Addressed
Differential Diagnosis Includes:
Patient is at her baseline per the staff at the nursing facility. Unknown time that the G-tube was out. I carefully attempted replacement with a 16 and a 14 Ivorian without success. Contacted GI.
*Pulse Oximetry
Patient hypoxic: no
*Critical Care Note
Total Time (30-74mins, 75-104mins- exclusive of procedures): Not Applicable
Data Reviewed
Review of Other/Old Records Reveals: Records
Update Note
Update Note:
Apparently family did not approve having IR try to manipulate and reposition or we insert the G-tube. They are interested in speech management given the patient has been pulling out her tube. I see no choice but to admit her medically overnight to
have speech evaluation and further decide on further care
ED Attending Note
-
Portions of this chart may have been created with voice recognition software.� Occasional wrong word or��sound alike� substitutions may have occurred due to the inherent limitations of voice recognition software.
Discharge Plan
Departure
Patient Disposition: Admit
Date of Disposition: 07/19/24
Time of Disposition: 15:26
Presentation/result/management discussed w/ accepting MD/DO: Hospitalist
Discharge Problem:
G-tube dislodgment, Ongoing swallowing issues
Interventions
Interventions:
*Risk Screen - Suicide Last Done: 07/19/24 10:03
*General Assessment Last Done: 07/19/24 10:03
*Neglect/Abuse Screening Last Done: 07/19/24 10:03
*ED COVID-19 Vaccine History Last Done: 07/19/24 18:05
*Nursing Disposition Last Done: 07/19/24 19:15
LP-Wrnuuz-Iqqmqmkllv Assessment Last Done: 07/19/24 16:00
ED-Female Genitourinary Assessment Last Done: 07/19/24 16:00
Discharge Date and Time
Discharge Date/Time: 07/19/24 19:15
--- NOTE | 2024-07-19 12:50 | CON.GI ---
Addendum entered and electronically signed by Kamilah Mccabe DO 07/19/24 19:35:
Her significant oral thrush may also be causing that stridor that you are hearing as it may be coating the vocal cords as well as impeding her swallowing
Treating the thrush is very important
I started her on IV fluconazole 200 mg IV x 1 then 100 mg daily which she should take for 14 days. Currently is IV because of the n.p.o. status. It is dosed reduced for her renal function as well which may need to be changed if her renal function
improves
Addendum entered and electronically signed by Kamilah Mccabe DO 07/19/24 18:53:
Patient seen and examined independently of STEVE. I agree with her note with my additions below
Janette is a 53-year-old female with history of PE/cardiac arrest on Eliquis, with last dose this morning. CVA. End-stage renal disease on HD who pulled her prior trach tube coming back to the emergency room for displaced PEG. Kandis reviewed
with her care home facility and they states she has pulled out several PEG tubes and has not yet been cleared for her diet. The emergency room attempted to replace the PEG tube but was unsuccessful. Prior to was a 16 Wallisian. Radiology was
kind enough to try and replace it, however upon calling for consent the family declined and wanted speech to evaluate her first. At the SNF the speech eval noted high risk for aspiration with history of her brain injury and recommended a video
swallow examination.
# In light of active Eliquis use as well as family's decline to replace the PEG tube will await video swallow examination tomorrow
-- based on that potential PEG tube on Tuesday
--The patient will need binder since she keeps pulling out her tubes
#oral thrush - IV fluconazole may be more efficacious since she is n.p.o. and may have thrush throughout her esophagus
Addendum entered and electronically signed by STEVE London 07/19/24 16:11:
I reviewed with IR, family has declined to replace peg as would like speech eval first to see if oral diet can be initiated. s/p speech eval with noted high risk for aspiration at SNF with hx brain injury. Recommended VSE-- will order. She is
also noted with some stridor with speech eval and possible thrush.
Original Note:
Consultation
-
Date/Time Consultation Requested: 07/19/24 1130
Date/Time Consultation Performed: 07/19/24 1215
Requesting Provider: Camacho Santos MD
Performing Provider: STEVE Diego, Kamilah Mccabe DO
Reason for Consultation: displaced peg
Medical History
Chief Complaint / HPI
History of Present Illness:
Pt is a 53yo with hx prior PE/cardiac arrest on Eliquis, CVA, ESRD on HD, prior pulled trach, IDDM, HTN with admission to ER for displaced peg. Peg was attempted to be replaced in ER but unable to replace. I reviewed with SNF pt has pulled out
several other PEG tube in past but has not been cleared for diet yet. Pt also had tube change 07/11 with clogged tube. Prior tube was 16 bahraini tube. Pt with limited communication but denies any other GI issues.
Past Medical History
Past Medical History: HTN, IDDM and Other (PE/cardiac arrest, CVA in March 2024, renal failure )
Past Surgical History: Cardiac (s/p arrest ) and Other (prior trach )
Social History
Tobacco: Non-Smoker
Alcohol: None
Living: Snf
Employment: Disabled
Family History
Family History: Reviewed & Not Pertinent
Allergies / Home Medications
Allergy/AdvReac Type Severity Reaction Status Date / Time
acetaminophen Allergy Unknown Verified 07/11/24 19:44
oxycodone Allergy Unknown Verified 07/11/24 19:44
�Medication �Instructions �Recorded
apixaban 5 mg tablet 5 mg feeding tube BID 06/07/24
bisacodyl 10 mg rectal suppository 10 mg UT DAILYPRN PRN constipation 06/07/24
carvedilol 6.25 mg tablet 6.25 mg feeding tube BID 06/07/24
divalproex 125 mg capsule,delayed 250 mg Q8H 06/07/24
release sprinkle (Depakote
Sprinkles)
hydralazine 10 mg tablet 10 mg feeding tube TID 06/07/24
insulin glargine 100 unit/mL 8 unit SC HS 06/07/24
subcutaneous solution
darbepoetin benji in polysorbat 25 25 mcg SC FR ##0 06/08/24
mcg/mL in polysorbate injection
insulin regular human 100 unit/mL 10 unit SC Q6H 06/08/24
injection solution
levetiracetam 500 mg tablet 500 mg BID 06/08/24
(Keppra)
midodrine 5 mg tablet 5 mg feeding tube MOWEFR 06/08/24
modafinil 100 mg tablet 50 mg feeding tube DAILY 06/08/24
mupirocin calcium 2 % topical cream 1 applic topical DAILY groin wound 06/08/24
ondansetron HCl 4 mg tablet 4 mg feeding tube Q8HPRN PRN nausea 06/08/24
tramadol 50 mg tablet 50 mg feeding tube TIDPRN PRN mild 06/08/24
pain
fexofenadine 60 mg tablet 60 mg feeding tube Q6HPRN PRN 07/11/24
allergies
hydroxyzine HCl 10 mg/5 mL oral 20 mg feeding tube QID 07/11/24
solution
ipratropium 0.5 mg-albuterol 3 mg 3 ml inhalation R [id number] PRN sob 07/11/24
(2.5 mg base)/3 mL nebulization
soln
lorazepam 1 mg tablet 1 mg feeding tube [id number] PRN 07/11/24
anxiety
lorazepam 1 mg tablet 1 mg feeding tube Q6HPRN PRN 07/11/24
anxiety
Review of Systems
-
Unable to obtain full review of systems at this time due to: Other (confused limited verbal )
History Source: Patient and Other (SNF staff)
Constitutional: Reports No Symptoms
EENT: Reports No Symptoms
Respiratory: Reports No Symptoms
Abdomen/GI: Reports Other (pt found with peg out )
: Reports Other (chronic HD)
Musculoskeletal: Reports No Symptoms
Neurological: Reports Other (hx CVA some limited verbal )
Endocrine: Reports No Symptoms
Hematologic/Lymphatic: Reports Bleeding
Vital Signs
Temp Pulse Resp BP Pulse Ox
98.5 F 88 20 110/81 100
07/19/24 10:03 07/19/24 10:07/19/24 10:03 07/19/24 10:03 07/19/24 10:03
Physical Exam
Exam
General: Other (s/p CVA -- some limited verbal communication)
HEENT: Normocephalic and Anicteric
Respiratory: Clear
Cardiac: Regular Rhythm
GI: Soft, Non Tender, Non Distended and Other (left upper quad old peg site unable to replace tube )
Skin: Warm and Dry
Neuro: Awake and Alert
Psych: Calm
Results
Diagnostic Image Results:
Prior GI Procedures:
EGD: unknown
Colonoscopy: unknow
Assessment / Plan
-
Pt is a 53yo with hx prior PE/cardiac arrest on Eliquis, CVA, ESRD on HD, prior pulled trach, IDDM, HTN with admission to ER for displaced peg. Peg was attempted to be replaced in ER but unable to replace. I reviewed with SNF pt has pulled out
several other PEG tube in past but has not been cleared for diet yet. Pt also had tube change 3/5 with clogged tube. Prior tube was 16 bahraini tube. Pt with limited communication but denies any other GI issues.
-peg displacement
-hx prior PE/cardiac arrest on Eliquis
-hx CVA with chronic dysphagia
other med problems:
-hx prior trach
-IDDM
-HTN
-ESRD on HD
PLAN:
Pt with peg displacement -- pt has hx pulling out tube in past
ER and myself attempted with #14 and #16 bahraini replacement tubes without success
I reviewed with SNF she has not been cleared for oral diet
I reached out to IR to see if they can replace vs in GI lab
last Eliquis 3/ PM
cont NPO
will need family consent to proceed for replacement
-
-
Thank you for consultation and allowing me to participate in the patient's care. Please call the building consultant GI physician during the after hours with any questions or concerns.
--- NOTE | 2024-07-19 16:10 | HPS.HSE ---
Family Physician
-
Family Physician: Wicho Aaron, DO
Chief Complaint
-
Dislodged PEG Tube
History of Present Illness
Patient is a 53 y/o female past medical history of Cardiac Arrest, Pulmonary Embolism, CVA CKD, and DM who presents with dislodged PEG tube. Patient is a limited historian. Patient was sent from [place] due to dislodged PEG tube. Attempts were made by
ED staff and GI DEMONSTRATOR [employer] attempted to replace tube without success. IR was initially contacted, however family does not PEG tube to be replaced by IR. Patient was evaluated by speech therapy who recommended video swallow evaluation prior to allowing
diet.
Medical History
Past Medical History
Past Medical History: Reports Other
Additional Past Medical History:
Cardiac Arrest
Pulmonary Embolism
CVA
CKD Stage IV
Diabetes Mellitus, Type II
Essential Hypertension
Anemia of Chronic Disease
Anxiety
Past Surgical History: Reports Other
Additional Past Surgical History:
Tracheostomy
Gastrostomy Tube
Social History
Tobacco: Non-smoker
Living: [facility]
Family History
Family History: Not pertinent
Allergies / Home Medications
Allergies reflects when Allergies were last updated in [facility].
Home Medications with original date entered in [facility]
Allergy/Medication List:
Allergies
Allergy/AdvReac Type Severity Reaction Status Date / Time
acetaminophen Allergy Unknown Verified 07/11/24 19:44
oxycodone Allergy Unknown Verified 07/11/24 19:44
Home Medications
apixaban 5 mg tablet 5 mg feeding tube BID 06/07/24
bisacodyl 10 mg rectal suppository 10 mg [place] DAILYPRN PRN constipation 06/07/24
carvedilol 6.25 mg tablet 6.25 mg feeding tube BID 06/07/24
divalproex 125 mg capsule,delayed release sprinkle (Depakote Sprinkles) 250 mg PO Q8H 06/07/24
hydralazine 10 mg tablet 10 mg feeding tube TID 06/07/24
insulin glargine 100 unit/mL subcutaneous solution 8 unit SC HS 06/07/24
darbepoetin benji in polysorbat 25 mcg/mL in polysorbate injection 25 mcg SC FR ##0 06/08/24
insulin regular human 100 unit/mL injection solution 10 unit SC Q6H 06/08/24
levetiracetam 500 mg tablet (Keppra) 500 mg PO BID 06/08/24
midodrine 5 mg tablet 5 mg feeding tube MOWEFR 06/08/24
mupirocin calcium 2 % topical cream 1 applic topical DAILY groin wound 06/08/24
ondansetron HCl 4 mg tablet 4 mg feeding tube Q8HPRN PRN nausea 06/08/24
tramadol 50 mg tablet 50 mg feeding tube TIDPRN PRN mild pain 06/08/24
fexofenadine 60 mg tablet 60 mg feeding tube Q6HPRN PRN allergies 07/11/24
hydroxyzine HCl 10 mg/5 mL oral solution 20 mg feeding tube QID 07/11/24
ipratropium 0.5 mg-albuterol 3 mg (2.5 mg base)/3 mL nebulization soln 3 ml inhalation R [id number] PRN sob 07/11/24
lorazepam 1 mg tablet 1 mg feeding tube Q6HPRN PRN anxiety 07/11/24
trazodone 50 mg tablet 25 mg feeding tube HS 07/19/24
Review of Systems
-
Unable to obtain full review of systems at this time due to: Other
Physical Exam
Vital Signs
Vital Signs
Temp Pulse Resp BP Pulse Ox
98.5 F 88 20 110/81 100
07/19/24 10:03 07/19/24 10:03 07/19/24 10:03 07/19/24 10:03 07/19/24 10:03
Physical Exam
General: Comfortable and Conversant
HEENT: Anicteric, Moist mucous membranes and Other (Thick white coating across tongue)
Respiratory: Clear and Non Labored Respirations
Cardiac: S1/S2 and Regular Rhythm
GI: Soft, Non Tender and Other (Prior PEG tube site)
Rectal: Deferred by Provider
Musculoskeletal: No Clubbing, No Cyanosis and No Edema
Skin: Warm and Dry
Neuro: Awake, Alert and Other (Able to follow some commands)
Psych: Calm
Laboratory Results
-
Laboratory Tests
07/19/24 07/19/24
16:01 16:48
WBC 4.7 L
Hgb 11.2 L
Hct 36.2 L
Plt Count 286
Sodium 148 H
Potassium 3.3 L
Chloride 106
Carbon Dioxide 34 H
BUN 41 H
Creatinine 2.3 H
Glucose 112 H
Calcium 11.0 H
Data Reviewed
-
Lab Data: Labs Reviewed by me
Old Records: Reviewed
Impression/Plan
-
Dislodged PEG Tube
-Appreciate GI and Speech Evals
-Planning for VSE in AM
-May need IR consult for replacement of PEG tube based on VSE results
-Consult NPO/IVFs
Thrush
-Start nystatin swish and spit
Hypokalemia, mild
-Replace potassium IV
-Recheck labs in AM
Hypercalcemia
-Recheck calcium level after IVFs
-Check Intact PTH
Hx Pulmonary Embolism
-Transition to heparin drip until able to resume Eliquis
Hx Cardiac Arrest
Hx CVA
-Transition Keppra to IV
IDDM
-Decreased Lantus dose while NPO
-Monitor sugars and continue coverage insulin
Essential Hypertension
-Hydralazine PRN until able to resume oral meds
CKD Stage IV
-Patient previous on HD - HD catheter removed on 07/17/24
Anxiety / Agitation
-Continue Depakote IV for mood stabilization until able to resume oral meds
Code Status: Full Code
--- NOTE | 2024-07-19 16:16 | PTOTSP ---
Dysphagia Evaluation
Patient is at an elevated risk for dysphagia and aspiration without a sensory response given her history (i.e., cardiac arrest and stroke 03/2024 s/p trach/PEG with self-decannulation 05/2024; prolonged NPO status with risk for disuse atrophy).
Patient admitted s/p self-removal of PEG. PEG unable to be replaced. Recommend video swallow to objectively assess swallow function prior to oral diet.
Recommend:
1. NPO
2. Medication non-oral
3. Oral care 3-5x daily
4. Video swallow study
5. Speech therapy after D/C from acute care level for cognitive linguistic evaluation/therapy
[2024-07-19 16:24] LABS: % Basophils 0.8 % (0-2); % Eosinophils 2.3 % (0-6); % Immature Granulocytes 0.2 % (0-0.5); % Neutrophils 42.7 % (42.2-75.2); Absolute Eosinophils 0.1 10^3/uL (0-0.7); Absolute Lymphocytes 2.2 10^3/uL (1.2-3.4); Absolute Monocytes 0.4 10^3/uL (0.1-0.6); Hematocrit 36.2 % (37.0-47.0); Hemoglobin 11.2 g/dL (12.0-16.0); Mean Corp Hgb Conc. 30.9 g/dL (33.0-37.0); Mean Corpuscular Hgb 27.6 pg (27.0-31.0); Mean Corpuscular Volume 89.2 fL (81.0-99.0); Mean Platelet Volume 9.9 fL (7.4-10.4); Nucleated Red Blood Cells % 0 %; Platelet Count 286 10^3/uL (130-400); Red Blood Cell Count 4.06 10^6/uL (4.20-5.40); Red Cell Dist. Width 13.5 % (11.5-14.5); White Blood Cell Count 4.7 10^3/uL (4.8-10.8)
[2024-07-19 16:25] LABS: Blood Urea Nitrogen 41 mg/dl (7-17); Carbon Dioxide 34 mmol/L (22-30); Chloride 106 mmol/L (98-107); Glucose 112 mg/dl (70-99); Sodium 148 mmol/L (135-145); eGFR 25.11
--- NOTE | 2024-07-19 16:39 | W.PN.UPDATE ---
Update Note
Progress Note Update
This is an addendum to H&P written by ANAIS Brooks
I saw and examined the patient.
The TE[employer]ER [employer]'s note was reviewed and I agree with the note.
Comment:
Ms. Janette Santos is a 53 yo woman with hx PE/cardiac arrest and CVA March 2024 s/p trach/PEG now at [facility] s/p admission 06/02 where trach had fallen out (did not need to be replaced), CKD (was on HD with cath pulled 07/17/24) presents to
the ER after having pulled PEG out. Peg attempted to be replaced in ER but unsuccessful. Would need IR replacement. Family would like to try VSE first.
Triage VS: T 98.5, P 88, RR 20, BP 110/81, SpO2 100%
On exam patient is alert, she can repeat my name but not fully following commands and very confused. Abdomen soft, clean wound where PEG was pulled, no LE swelling, + thrush
LABS: Na 148, Cl 106, CO2 34, Cr 2.3, Glucose 112, WBC 4.7, Hg 11.2, PLT 286
Pulled PEG Tube
Dysarthria s/p cardiac arrest 04/01
-s/p ST eval in ER with plans for VSE tomorrow AM
-appreciate GI consult
-may need IR consult for placement PEG
Hx PE 03/2024
-transition to IV Heparin gtt (cannot take PO, can shut off if IR procedure indicated)
Hx Cardiac arrest 04/01 with anoxic brain injury
-ANTENNA DESIGN ENGINEER Depakote (change to IV)
-ANTENNA DESIGN ENGINEER Ativan PRN
-ANTENNA DESIGN ENGINEER Keppra
IDDM
-1/2 dose lantus
-ISS
Thrush
-Nystatin - swish and spit
Remainder of plan per PA note
[2024-07-19 17:05] LABS: Potassium 3.3 mmol/L (3.5-5.1)
[2024-07-19 17:26] LABS: APTT 27.6 Sec (23.4-35.0)
[2024-07-19] MEDS: HEPARIN 25000 UNITS/250 ML IV (18:00)
[2024-07-19] MEDS: NSS 500 IV (18:01)
[2024-07-19] MEDS: KEPPRA 500 MG IV (21:20)
[2024-07-19] MEDS: NSS with KCL 20 MEQ 1000 IV (21:20)
[2024-07-19 21:32] LABS: Glucose - Point of Care 135 mg/dl (70-99)
[2024-07-19] MEDS: LANTUS 0.04 UNITS SC (21:46)
[2024-07-19] MEDS: DEPACON 52.5 MG IV (22:18)
--- NOTE | 2024-07-19 22:48 | PTCARENOTE ---
Patient arrived from ER at around 1900. Patient oriented to the [place]. Bed alarm placed on bed. Patient is only oriented to self. Call nava within reach.
--- NOTE | 2024-07-19 22:50 | PTCARENOTE ---
Patient arrived from ER with a right upper arm midline with Heparin drip running at 16 units. Patient is only oriented to self, and has been pulling at midline. RN has provided redirection and education to prevent patient from pulling midline. Left
hand IV was inserted to allow for administration of other IV medications. Patient continues to pull at both lines, even with staff redirecting patent. B/l hand mitts were applied; however, patient removed both mitts and continued to attempt to pull
at lines. [facility] Nurse practitioner made aware of situation; order placed for bilateral wrist restraints and bilateral mitts placed. RN provided education and calming techniques to redirect patient.
--- NOTE | 2024-07-19 23:10 | PTCARENOTE ---
RN rounded on patient. Patient got out of bilateral mitts and wrist restraints. Patient pulled left hand IV out. IV heparin running through right arm midline again. IV team paged again for second line. See orders placed by combination welder apprentice [employer].
[2024-07-19] MEDS: ATIVAN 0.5 MG IV (23:27)
[2024-07-19] MEDS: NSS (PRESERVATIVE FREE) 0.25 ML IV (23:28)
[2024-07-19] MEDS: MYCOSTATIN ORAL SUSPENSION 5 ML PO (23:32)
[2024-07-20 00:24] LABS: APTT 97.9 Sec (23.4-35.0)
[2024-07-20] MEDS: DIFLUCAN 200 MG 50 MG IV ×2 (00:44→23:49)
[2024-07-20] MEDS: DEPACON 52.5 MG IV ×2 (05:16→13:05)
[2024-07-20 06:02] LABS: Glucose - Point of Care 104 mg/dl (70-99)
[2024-07-20 06:17] VITALS: BP 135/78
[2024-07-20 06:31] LABS: Hematocrit 28.4 % (37.0-47.0); Hemoglobin 9.1 g/dL (12.0-16.0); Mean Corpuscular Hgb 28.2 pg (27.0-31.0); Mean Corpuscular Volume 87.9 fL (81.0-99.0); Platelet Count 267 10^3/uL (130-400); Red Blood Cell Count 3.23 10^6/uL (4.20-5.40); Red Cell Dist. Width 13.6 % (11.5-14.5); White Blood Cell Count 4.8 10^3/uL (4.8-10.8)
[2024-07-20] MEDS: LIDOCAINE 4% PATCH 2 PATCH TOPICAL (06:37)
[2024-07-20 06:43] LABS: APTT 159.2 Sec (23.4-35.0)
[2024-07-20 06:58] LABS: Albumin 3.1 g/dl (3.5-5.0); Blood Urea Nitrogen 35 mg/dl (7-17); Calcium 10.1 mg/dl (8.4-10.2); Carbon Dioxide 27 mmol/L (22-30); Chloride 113 mmol/L (98-107); Estimated Creatinine Clearance 34 ml/min; Glucose 112 mg/dl (70-99); Magnesium 2.1 mg/dl (1.6-2.3); Phosphorus 3.4 mg/dl (2.5-4.5); Potassium 3.1 mmol/L (3.5-5.1); Sodium 151 mmol/L (135-145)
[2024-07-20 07:26] LABS: Vitamin D, 25-OH*** 19.8 ng/mL (30-80)
[2024-07-20 07:40] LABS: TSH Reflex To Free T4 1.41 uIU/ml (0.47-4.68)
[2024-07-20 07:43] VITALS: BP 126/82
--- NOTE | 2024-07-20 08:55 | W.PN.GI.CBS2 ---
Addendum entered and electronically signed by Gonzalo Brandon MD 07/20/24 19:09:
I saw and examined the patient.
The PA's note was reviewed and I agree with the note.
Comment:
Trial of oral feeding.
Addendum entered and electronically signed by STEVE London 07/20/24 11:25:
reviewed with speech therapy and spouse after VSE--speech IDDS 5 with minced moist, thin liquids with full supervision and assistance. alternate sips, bites, check for pocketing oral care. meds in pureed crushed. oral care after all meals. I
discussed with spouse with risk of oral diet and risk of pulling at tube and continued peg feeds. He is in agreement with trial of oral diet for now. If not doing well will need likely peg at new site.
Addendum entered and electronically signed by STEVE London 07/20/24 09:04:
reviewed am labs hbg 9.1 cont to trend no signs of aggressive bleeding prior hbg 8-11
Na 151, k 3.1. correct per medical team -- correction to below hx ESRD on prior HD -- cath now removed
Original Note:
Today's Communication / Plan
-
Pt with peg displacement -- pt has hx pulling out tube in past
unable to replace in ER as per SNF remain NPO with continued dysphagia
family declined replacement without speech eval prior
appreciate speech eval -- for VSE today
await results if still fail will need reattempt for replacement GI vs IR
last Eliquis 3/12 PM
Assessment / Plan
-
Pt is a 53yo with hx prior PE/cardiac arrest on Eliquis, CVA, ESRD on HD, prior pulled trach, IDDM, HTN with admission to ER for displaced peg. Peg was attempted to be replaced in ER but unable to replace. I reviewed with SNF pt has pulled out
several other PEG tube in past but has not been cleared for diet yet. Pt also had tube change 3/5 with clogged tube. Prior tube was 16 dominican tube. Pt with limited communication but denies any other GI issues.
-peg displacement
-hx prior PE/cardiac arrest on Eliquis
-hx CVA with chronic dysphagia
other med problems:
-hx prior trach
-IDDM
-HTN
-ESRD on HD
PLAN:
Pt with peg displacement -- pt has hx pulling out tube in past
unable to replace in ER as per SNF remain NPO with continued dysphagia
family declined replacement without speech eval prior
appreciate speech eval -- for VSE today
await results if still fail will need reattempt for replacement GI vs IR
last Eliquis 3 PM
Subjective
Subjective
Date of Service: July 20, 2024
pt more awake this am answering some questions but confused and for VSE today, denies nausea/vomiting/abd pain or diarrhea
Objective
Data Reviewed
Laboratory Data:
Laboratory Results
07/20/24 06:11
07/20/24 06:11
Laboratory Results
APTT Cancelled 07/20/24 12:45
Phosphorus 3.4 mg/dl (2.5-4.5) 07/20/24 06:11
Magnesium 2.1 mg/dl (1.6-2.3) 07/20/24 06:11
Vital Signs and I&O:
Vital Signs
Temp Pulse Resp BP Pulse Ox
98.0 F 106 26 126/82 100
07/20/24 07:43 07/20/24 07:43 07/20/24 07:43 07/20/24 07:43 07/20/24 07:43
Physical Exam
Physical Exam
HEENT: Anicteric, Moist mucous membranes and Other (some exudate with concern for thrush)
Cardiology: Normal Sinus Rhythm
Pulmonary: Other (minimal stridor noted )
GI: Soft, Non Distended and Other (old peg site without drainage )
Neuro: Other (confused but answering some questions )
[2024-07-20 09:12] LABS: Glycohemoglobin (HgbA1c) 5.8 % (4.0-5.6)
[2024-07-20] MEDS: NOVOLOG FLEXPEN-MODERATE RESISTANCE SC (10:36)
[2024-07-20] MEDS: KEPPRA 500 MG IV (10:37)
[2024-07-20] MEDS: KCL 270 MEQ IV (10:38)
[2024-07-20] MEDS: MYCOSTATIN ORAL SUSPENSION PO ×3 (10:38→22:33)
[2024-07-20] MEDS: D5W 1000 IV ×2 (10:39→23:48)
[2024-07-20] MEDS: NSS with KCL 20 MEQ IV (11:10)
[2024-07-20 11:58] LABS: Glucose - Point of Care 151 mg/dl (70-99)
[2024-07-20] MEDS: NOVOLOG FLEXPEN-MODERATE RESISTANCE 1 UNITS SC ×2 (13:04→17:55)
[2024-07-20] MEDS: MYCOSTATIN ORAL SUSPENSION 5 ML PO (13:05)
--- NOTE | 2024-07-20 13:09 | PTOTSP ---
Videofluoroscopic swallow study
Summary: Patient presents with mild-moderate oral and within functional limits pharyngeal stage of swallowing. Etiology of swallowing is felt to be due to prior CVA. See patient care note for details of study.
Recommend:
1. IDDSI Level 5 Minced and Moist, Thin Liquids
2. FULL supervision and assistance
3. Strategies: alternate sips/bites, check for oral residue/pocketing, oral care after meals with use of suctioning
4. Medications: crushed in puree if medically cleared to do so
5. Dysphagia tx at the acute care level and after D/C at this time. Goals to improve mastication, bolus cohesion, bolus transfers/oral clearance, and use of compensations.
6. Language/cognitive tx after D/C from the acute care level.
*If patient with pocketing despite dysphagia diet and strategies, consider downgrade to puree.
--- NOTE | 2024-07-20 14:02 | W.PN.HOSP.TC ---
Today's Communication/Plan
-
trend bmp
replete lytes
start po diet
transition meds to po
Assessment / Plan
Assessment / Plan
Dislodged PEG Tube
-Appreciate GI and Speech Evals
Status post video swallow evaluation. Patient on minced and moist diet. No need for PEG replacement at this point
-Monitor for diet tolerance. If not tolerating diet and not taking appropriate calories then will require PEG tube at a new site. Patient will require 100% assistance with feeding for now.
Thrush
-Start nystatin swish and spit
-Also started on fluconazole per GI.
Hypokalemia, mild
-Replace potassium IV
-Recheck labs in AM
Severe hypernatremia secondary to dehydration
-Started patient on hypotonic saline
Hypercalcemia 2/2 dehydration
Vitamin D Def -start po supplements
-Recheck calcium level after IVFs
-Resolved.
Hx Pulmonary Embolism
-Stop heparin at 8 PM and start Eliquis.
Hx Cardiac Arrest
Hx CVA
-Continue with Keppra and Dilantin.
IDDM
-Decreased Lantus dose and can adjust based on diet tolerance.
-Monitor sugars and continue coverage insulin
Essential Hypertension
-Hydralazine PRN until able to resume oral meds
CKD Stage IV
-Patient previous on HD - HD catheter removed on 07/17/24
Anxiety / Agitation
-Continue Depakote and Ativan as needed
Code Status: Full Code
Discussed with patient spouse at bedside in details
Anticipated Discharge: 24 - 48 hours
Subjective/Interval History
-
Date of Service: July 20, 2024
Patient was seen post video swallow evaluation started
Patient passed swallow
Continues to talk however confused at baseline.
States states she is hungry.
Objective Data
-
Labs:
Laboratory Results
07/20/24 07/20/24 07/20/24
06:11 12:15 12:45
WBC 4.8
Hgb 9.1 L
Hct 28.4 L
Plt Count 267
APTT 159.2 H* Cancelled Cancelled
Sodium 151 H
Potassium 3.1 L
Chloride 113 H
Carbon Dioxide 27
BUN 35 H
Creatinine 2.1 H
Glucose 112 H
Calcium 10.1
07/20/24
13:48
WBC
Hgb
Hct
Plt Count
APTT Pending
Sodium
Potassium
Chloride
Carbon Dioxide
BUN
Creatinine
Glucose
Calcium
Vital Signs:
Vital Signs
Temp Pulse Resp BP Pulse Ox
98.0 F 106 26 126/82 100
07/20/24 07:43 07/20/24 07:43 07/20/24 07:43 07/20/24 07:43 07/20/24 07:43
Physical Exam
-
General: Well Developed and No Apparent Distress
HEENT: Normocephalic, Atraumatic and Moist Mucous Membranes
Respiratory: Clear to Auscultation
Cardiac: Regular Rhythm and S1/S2; Negative Murmur, Rub or Gallop
GI: Soft, Nontender, Nondistended and Normal Bowel Sounds; Negative Organomegaly
Rectal: Deferred by Provider
Musculoskeletal: No Clubbing, No Cyanosis and No Edema
Skin: Negative Rash
Neuro: Awake
Psych: Confused (At baseline)
Data Reviewed
-
Total Time Spent with Patient (in minutes): 55
[2024-07-20 14:17] LABS: APTT 90.6 Sec (23.4-35.0)
--- NOTE | 2024-07-20 14:34 | PTOTSP ---
Dysphagia Therapy
Impression: Mild-moderate oral and within functional limits pharyngeal stage of swallowing per video swallow study 07/20.
Staff noted pocketing with lunch meal tray. Question if oral dysphagia fluctuates. Consider diet downgrade and strategies below.
Recommend:
1. IDDSI Level 4 Puree, Thin Liquids
2. FULL supervision and assistance
3. Strategies: reduce environmental distractions,use sauces to thin down thick purees, alternate sips/bites, check for oral residue/pocketing, oral care after meals with use of suctioning
4. Medications: crushed in puree if medically cleared to do so
5. Dysphagia tx at the acute care level and after D/C at this time. Goals to improve mastication, bolus cohesion, bolus transfers/oral clearance, and use of compensations.
6. Language/cognitive tx after D/C from the acute care level.
[2024-07-20 17:29] LABS: Glucose - Point of Care 174 mg/dl (70-99)
[2024-07-20 19:35] VITALS: BP 145/92
[2024-07-20] MEDS: KEPPRA 500 MG PO (20:30)
[2024-07-20] MEDS: ELIQUIS 5 MG PO (20:30)
[2024-07-20] MEDS: COREG 6.25 MG PO (20:30)
[2024-07-20 22:30] LABS: Glucose - Point of Care 164 mg/dl (70-99)
[2024-07-20] MEDS: LANTUS 0.04 UNITS SC (22:33)
[2024-07-20] MEDS: MELATONIN 5 MG PO (22:33)
[2024-07-20] MEDS: DEPAKOTE SPRINKLE 250 MG PO (23:48)
[2024-07-20 23:59] VITALS: BP 139/79
[2024-07-21] MEDS: TYLENOL 650 MG PO (04:19)
[2024-07-21 07:00] VITALS: BP 146/82
[2024-07-21 08:52] LABS: Intact PTH 18.4 pg/ml (13.6-85.8)
[2024-07-21 09:28] LABS: Blood Urea Nitrogen 23 mg/dl (7-17); Calcium 9.9 mg/dl (8.4-10.2); Carbon Dioxide 27 mmol/L (22-30); Chloride 111 mmol/L (98-107); Estimated Creatinine Clearance 37 ml/min; Glucose 155 mg/dl (70-99); Sodium 144 mmol/L (135-145); eGFR 31.57
[2024-07-21 09:34] LABS: APTT 31.8 Sec (23.4-35.0)
[2024-07-21] MEDS: NOVOLOG FLEXPEN-MODERATE RESISTANCE SC ×2 (10:55→18:12)
[2024-07-21 10:56] LABS: Glucose - Point of Care 209 mg/dl (70-99)
[2024-07-21] MEDS: KCL 270 MEQ IV (10:57)
[2024-07-21] MEDS: NOVOLOG FLEXPEN-MODERATE RESISTANCE 3 UNITS SC (10:57)
[2024-07-21] MEDS: MYCOSTATIN ORAL SUSPENSION 5 ML PO (10:58)
[2024-07-21] MEDS: DEPAKOTE SPRINKLE 250 MG PO ×2 (10:58→20:05)
[2024-07-21] MEDS: COREG 6.25 MG PO ×2 (10:59→20:20)
[2024-07-21] MEDS: KEPPRA 500 MG PO ×2 (10:59→20:05)
[2024-07-21] MEDS: ELIQUIS 5 MG PO ×2 (11:00→20:05)
--- NOTE | 2024-07-21 11:12 | W.PN.GI.CBS2 ---
Today's Communication / Plan
-
continue oral feeding, GI s/o
Assessment / Plan
-
Pt is a 53yo with hx prior PE/cardiac arrest on Eliquis, CVA, ESRD on HD, prior pulled trach, IDDM, HTN with admission to ER for displaced peg. Peg was attempted to be replaced in ER but unable to replace. I reviewed with SNF pt has pulled out
several other PEG tube in past but has not been cleared for diet yet. Pt also had tube change 3/5 with clogged tube. Prior tube was 16 icelandic tube. Pt with limited communication but denies any other GI issues.
Pt is tolerating oral diet as per nursing staff, swallowing well w/o signs of aspiration/coughing. Continue oral feeding. GI s/o.
Total Time Spent with Patient (in minutes): 35
Subjective
Subjective
Date of Service: July 21, 2024
tolerating oral diet as per nursing staff
Objective
Data Reviewed
Laboratory Data:
Laboratory Results
07/21/24 06:00
07/21/24 08:36
Laboratory Results
APTT 31.8 Sec (23.4-35.0) 07/21/24 08:36
Phosphorus 3.4 mg/dl (2.5-4.5) 07/20/24 06:11
Magnesium 2.1 mg/dl (1.6-2.3) 07/20/24 06:11
Vital Signs and I&O:
Vital Signs
Temp Pulse Resp BP Pulse Ox
98.4 F 86 20 146/62 100
07/21/24 07:00 07/21/24 10:59 07/21/24 07:00 07/21/24 10:59 07/21/24 07:00
I&O
07/20/24 07/21/24 07/22/24
06:59 06:59 06:59
Intake Total 1680 / 1680
Balance 1680 / 1680
[2024-07-21] MEDS: LIDOCAINE 4% PATCH TOPICAL (11:21)
--- NOTE | 2024-07-21 11:45 | W.PN.HOSP.TC ---
Today's Communication/Plan
-
replete kcl
dc to snf
po meds
Assessment / Plan
Assessment / Plan
General: Well Developed and No Apparent Distress
HEENT: Normocephalic, Atraumatic and Moist Mucous Membranes
Respiratory: Clear to Auscultation
Cardiac: Regular Rhythm and S1/S2; Negative Murmur, Rub or Gallop
GI: Soft, Nontender, Nondistended and Normal Bowel Sounds; Negative Organomegaly
Rectal: Deferred by Provider
Musculoskeletal: No Clubbing, No Cyanosis and No Edema
Skin: Negative Rash
Neuro: Awake
Psych: Confused (At baseline)
Dislodged PEG Tube
-Appreciate GI and Speech Evals
-Status post video swallow evaluation. Patient on minced and moist diet. No need for PEG replacement at this point
-Monitor for diet tolerance. If not tolerating diet and not taking appropriate calories then will require PEG tube at a new site. Patient will require 100% assistance with feeding for now.
Thrush
-Start nystatin swish and spit
-dc fluconazole
Hypokalemia, mild
-Replete prn
Severe hypernatremia secondary to dehydration
-resolved
Hypercalcemia 2/2 dehydration
Vitamin D Def -start po supplements
-Recheck calcium level after IVFs
-Resolved.
Hx Pulmonary Embolism
-Re start Eliquis.
Hx Cardiac Arrest
Hx CVA
-Continue with Keppra and Dilantin.
IDDM
-Decreased Lantus dose and can adjust based on diet tolerance.
-Monitor sugars and continue coverage insulin
Essential Hypertension
-cont coreg. Hydralazine prn
RICKY on CKD Stage IV
-Patient previous on HD - HD catheter removed on 07/17/24
-Cr at 1.9.
Anxiety / Agitation
-Continue Depakote and Ativan as needed
Code Status: Full Code
Discussed with patient spouse at bedside in details on 07/20/24
Dispo-back to SNF. CM aware.
More than 30 minutes spent in discharge including
Final examination of the patient
Summarizing hospital stay
Instructions for continuing care to all relevant caregivers
Preparation of discharge records, prescriptions, and referral forms
Total time spent (in minutes): 45
Anticipated Discharge: Today
Subjective/Interval History
-
Date of Service: July 21, 2024
Tolerated diet
Objective Data
-
Labs:
Laboratory Results
07/21/24 07/21/24
06:00 08:36
WBC Cancelled
Hgb Cancelled
Hct Cancelled
Plt Count Cancelled
APTT 31.8
Sodium 144
Potassium 3.0 L
Chloride 111 H
Carbon Dioxide 27
BUN 23 H
Creatinine 1.9 H
Glucose 155 H
Calcium 9.9
Vital Signs:
Vital Signs
Temp Pulse Resp BP Pulse Ox
98.4 F 86 20 146/62 100
07/21/24 07:00 07/21/24 10:59 07/21/24 07:00 07/21/24 10:59 07/21/24 07:00
I&O
07/20/24 07/21/24 07/22/24
06:59 06:59 06:59
Intake Total 1680 / 1680
Balance 1680 / 1680
[2024-07-21] MEDS: DRISDOL (VITAMIN D2) 50000 UNITS PO (12:24)
--- NOTE | 2024-07-21 13:16 | CM ---
Confirmed with Martah/[facility] [phone] that pt is STR there and will need auth to return.
[2024-07-21] MEDS: MYCOSTATIN ORAL SUSPENSION PO ×3 (14:39→22:14)
[2024-07-21 15:00] VITALS: BP 143/109
[2024-07-21 17:32] LABS: Glucose - Point of Care 113 mg/dl (70-99)
[2024-07-21] MEDS: SENOKOT-S 1 TABLET PO (20:05)
[2024-07-21] MEDS: LANTUS 0.04 UNITS SC (21:32)
[2024-07-21 21:34] LABS: Glucose - Point of Care 111 mg/dl (70-99)
[2024-07-21] MEDS: MELATONIN 5 MG PO (21:35)
[2024-07-21 23:00] VITALS: BP 123/83
[2024-07-22] VITALS (7 sets, daily range): BP systolic 123–159; BP diastolic 75–93; PULSE 95; O2SAT 100
[2024-07-22] MEDS: DEPAKOTE SPRINKLE 250 MG PO ×3 (00:43→17:25)
[2024-07-22 06:57] LABS: Blood Urea Nitrogen 18 mg/dl (7-17); Calcium 10.1 mg/dl (8.4-10.2); Carbon Dioxide 28 mmol/L (22-30); Chloride 112 mmol/L (98-107); Estimated Creatinine Clearance 39 ml/min; Glucose 129 mg/dl (70-99); Potassium 3.5 mmol/L (3.5-5.1); Sodium 146 mmol/L (135-145); eGFR 33.48
[2024-07-22 07:24] LABS: Glucose - Point of Care 115 mg/dl (70-99)
[2024-07-22] MEDS: NOVOLOG FLEXPEN-MODERATE RESISTANCE SC ×2 (07:55→16:59)
[2024-07-22] MEDS: ELIQUIS 5 MG PO ×2 (08:00→21:01)
--- NOTE | 2024-07-22 09:22 | CM ---
ALEJO received message from that pt remains stable for dc.
Call placed to Martha/Dong @ [phone]- left message requesting a return call.
Unclear if auth was initiated yesterday. Pt will need to remain off all restrains, including video monitoring and 1:1 for
at least 24 hrs prior to dc. Pt will require a repeat PT and OT within 24hrs of dc for insurance auth.
CM/PALLAVI will continue to follow to ensure a safe and timely dc.
[2024-07-22] MEDS: KEPPRA 500 MG PO ×2 (09:42→21:01)
[2024-07-22] MEDS: COREG 6.25 MG PO ×2 (09:42→21:01)
[2024-07-22] MEDS: MIRALAX PO (09:43)
[2024-07-22] MEDS: MYCOSTATIN ORAL SUSPENSION 5 ML PO ×2 (09:44→13:43)
[2024-07-22] MEDS: LIDOCAINE 4% PATCH TOPICAL (09:50)
[2024-07-22] MEDS: SENOKOT-S PO (09:50)
[2024-07-22] MEDS: ATIVAN 1 MG PO ×2 (11:15→21:02)
[2024-07-22 11:24] LABS: Glucose - Point of Care 169 mg/dl (70-99)
[2024-07-22] MEDS: D5LR 500 IV ×2 (12:06→18:50)
--- NOTE | 2024-07-22 12:36 | W.PN.HOSP.TC ---
Today's Communication/Plan
-
Gentle IVF
Trend bmp
encourage po intake
assistance with feeding
monitor mentation
Assessment / Plan
Assessment / Plan
General: Well Developed and No Apparent Distress
HEENT: Normocephalic, Atraumatic and Moist Mucous Membranes
Respiratory: Clear to Auscultation
Cardiac: Regular Rhythm and S1/S2; Negative Murmur, Rub or Gallop
GI: Soft, Nontender, Nondistended and Normal Bowel Sounds; Negative Organomegaly
Rectal: Deferred by Provider
Musculoskeletal: No Clubbing, No Cyanosis and No Edema
Skin: Negative Rash
Neuro: Awake
Psych: Confused (At baseline)
Dislodged PEG Tube
Dysphagia
-Appreciate GI and Speech Evals
-Status post video swallow evaluation. Patient on IDDS4 Puree, Thin Liquids. Speech re-eval in am to see if diet can be upgraded
-Monitor for diet tolerance. If not tolerating diet and not taking appropriate calories may need to consider PEG tube at a new site.
-Patient will require 100% assistance with feeding for now.
Thrush
-Started nystatin swish and spit
-dc fluconazole
Hypokalemia, mild
-Replete prn
Severe hypernatremia secondary to dehydration
-gentle IVF.
-Encourage po intake
Hypercalcemia 2/2 dehydration
Vitamin D Def -start po supplements
-Resolved. Ca 10.1
Hx Pulmonary Embolism
-Re-started Eliquis.
Cardiac arrest secondary to pulmonary embolism/CVA
Hx CVA
Intermittent agitation
-Continue with Keppra and Dilantin.
-ativan prn
-monitor off restraints
IDDM
-Decreased Lantus dose and can adjust based on diet tolerance.
-Monitor sugars and continue coverage insulin
-POC am 115
Essential Hypertension
-cont coreg. Hydralazine prn
RICKY on CKD Stage IV
-Patient previous on HD - HD catheter removed on 07/17/24
-Cr at 1.9.
Anxiety / Agitation
-Continue Depakote and Ativan as needed
Code Status: Full Code
Discussed with patient spouse at bedside in details on 07/20/24
Dispo-back to SNF. CM aware.
Anticipated Discharge: Today
Subjective/Interval History
-
Date of Service: July 22, 2024
off restraints since 2pm yesterday
eating breakfast
encourage to drink more water
states she is thirsty
Objective Data
-
Labs:
Laboratory Results
07/22/24
06:29
Sodium 146 H
Potassium 3.5
Chloride 112 H
Carbon Dioxide 28
BUN 18 H
Creatinine 1.8 H
Glucose 129 H
Calcium 10.1
Vital Signs:
Vital Signs
Temp Pulse Resp BP Pulse Ox
98.6 F 92 20 142/75 99
07/22/24 07:00 07/22/24 09:42 07/22/24 07:00 07/22/24 09:42 07/22/24 07:00
I&O
07/21/24 07/22/24 07/23/24
06:59 06:59 06:59
Intake Total 1680 / 1680 120 / 120
Balance 1680 / 1680 120 / 120
Data Reviewed
-
Total Time Spent with Patient (in minutes): 55
[2024-07-22] MEDS: NOVOLOG FLEXPEN-MODERATE RESISTANCE 1 UNITS SC (13:42)
--- NOTE | 2024-07-22 14:24 | PTOTSP ---
Speech Pathology Follow-Up
Impression per recent VSE - Mild-moderate oral and within functional limits pharyngeal stage of swallowing per video swallow study 07/20.
No oral pocketing observed during PO trials this date, will continue to monitor.
Maintain recommendations:
1. IDDSI Level 4 Puree, Thin Liquids
2. FULL supervision and assistance
3. Strategies: reduce environmental distractions,use sauces to thin down thick purees, alternate sips/bites, check for oral residue/pocketing, oral care after meals with use of suctioning
4. Medications: crushed in puree if medically cleared to do so
5. Dysphagia tx at the acute care level and after D/C at this time. Goals to improve mastication, bolus cohesion, bolus transfers/oral clearance, and use of compensations.
6. Language/cognitive tx after D/C from the acute care level.
[2024-07-22] MEDS: ULTRAM 50 MG PO (14:42)
[2024-07-22 16:32] LABS: Glucose - Point of Care 135 mg/dl (70-99)
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
[2024-07-22] MEDS: MYCOSTATIN ORAL SUSPENSION PO (18:51)
[2024-07-22] MEDS: SENOKOT-S 1 TABLET PO (21:01)
[2024-07-22] MEDS: MELATONIN 5 MG PO (21:02)
[2024-07-22 22:53] LABS: Glucose - Point of Care 134 mg/dl (70-99)
[2024-07-22] MEDS: LANTUS 0.04 UNITS SC (22:55)
[2024-07-23] MEDS: MYCOSTATIN ORAL SUSPENSION PO (00:18)
[2024-07-23] MEDS: DEPAKOTE SPRINKLE 250 MG PO ×3 (01:15→15:59)
[2024-07-23] MEDS: TYLENOL 650 MG PO (01:20)
[2024-07-23] MEDS: D5LR 1000 IV ×2 (02:15→16:00)
[2024-07-23] MEDS: D5LR IV (02:21)
[2024-07-23] MEDS: ATIVAN PO (03:31)
[2024-07-23 07:00] VITALS: BP 162/92
[2024-07-23 08:09] LABS: Glucose - Point of Care 129 mg/dl (70-99)
[2024-07-23] MEDS: NOVOLOG FLEXPEN-MODERATE RESISTANCE SC ×3 (08:29→17:43)
[2024-07-23] MEDS: ELIQUIS 5 MG PO ×2 (08:35→21:20)
[2024-07-23] MEDS: SENOKOT-S 1 TABLET PO (08:35)
[2024-07-23] MEDS: COREG 6.25 MG PO ×2 (08:35→21:19)
[2024-07-23] MEDS: KEPPRA 500 MG PO ×2 (08:35→21:20)
[2024-07-23] MEDS: MIRALAX 17 GRAMS PO (08:36)
[2024-07-23] MEDS: LIDOCAINE 4% PATCH 2 PATCH TOPICAL (08:36)
[2024-07-23] MEDS: MYCOSTATIN ORAL SUSPENSION 5 ML PO ×4 (08:36→21:23)
[2024-07-23 09:24] LABS: Hematocrit 29.4 % (37.0-47.0); Hemoglobin 9.3 g/dL (12.0-16.0); Mean Corp Hgb Conc. 31.6 g/dL (33.0-37.0); Mean Corpuscular Hgb 27.7 pg (27.0-31.0); Mean Corpuscular Volume 87.5 fL (81.0-99.0); Mean Platelet Volume 9.4 fL (7.4-10.4); Platelet Count 262 10^3/uL (130-400); Red Blood Cell Count 3.36 10^6/uL (4.20-5.40); Red Cell Dist. Width 13.4 % (11.5-14.5); White Blood Cell Count 3.9 10^3/uL (4.8-10.8)
[2024-07-23 09:52] LABS: Blood Urea Nitrogen 13 mg/dl (7-17); Calcium 9.6 mg/dl (8.4-10.2); Carbon Dioxide 29 mmol/L (22-30); Chloride 110 mmol/L (98-107); Estimated Creatinine Clearance 44 ml/min; Glucose 132 mg/dl (70-99); Potassium 3.5 mmol/L (3.5-5.1); Sodium 143 mmol/L (135-145); eGFR 38.56
[2024-07-23] MEDS: ULTRAM 50 MG PO (10:07)
--- NOTE | 2024-07-23 13:55 | CM ---
Patient seen bedside with spouse, discussed discharge planning to SNF. Per patient/spouse, do not want to return to [facility]. Patients spouse, Nacho, reports he has made complaints regarding facility, unhappy with care. Spouse reports patient was
hospitalized at [facility], was discharged to [facility] for about a month, then discharged to [facility] where patient has been for about a month. Patient tearful, reports she wants to speak to a counselor, reports she does not know who
she is/ does not answer when asked if feels anxious/depressed. TT to Hospitalist with request to speak to Psych. requesting referral to [facility] in [place], additional referrals placed to [facility] location. Patient
will require insurance auth once facility found. CM will continue to follow for all discharge planning needs.
Plan; SNF pending accepting facility, will require insurance auth
--- NOTE | 2024-07-23 14:13 | W.PN.HOSP.TC ---
Addendum entered and electronically signed by Hussein Marroquin MD 07/23/24 15:50:
#Cognitive impairment
since cardiac arrest and stroke in Mar 2015
Had CPR for 20min
poor judgement since then
Original Note:
Today's Communication/Plan
-
monitor labs
Assessment / Plan
Assessment / Plan
54yo F with PMHx of traumatic brain injury s/p trach - removed and PEG brought from SNF after her PEG got dislodged. Could not be reiserted in ED, later family requested assessment for swallowing, which patient passed and started on dysphagia diet.
Monitoring for appropiate oral intake.
A/P:
# dysphagia
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
start diet
GI follows, if patient failes - will need PEG at new site
#Mild leukopenia
#mild chronic anemia
#Hypokalemia
#Hypernatremia
#CKD stage 3b with RICKY on admisison
2/2 poor oral intake
follow CBC , BMP
#Vit D deficiency
supplement
#Oral thrush
Nistatin
check HIV
#Hx of pulmonary embolism
on ELiquis
#DM type 2 with nephropathy
Insulin SS, DM diet, Accuchecks
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
#Essential HTN
#Anxiety/Agitation
#chronic b/l LE pain without radiculopathy
cont home meds
DVT ppx Eliquis
Full code
I have spent at least 58min reviewing chart, test results, communication with consultants and providing direct patient care
Anticipated Discharge: Within 24 hours
Subjective/Interval History
-
Date of Service: July 23, 2024
Objective Data
-
Labs:
Laboratory Results
07/23/24
08:40
WBC 3.9 L
Hgb 9.3 L
Hct 29.4 L
Plt Count 262
Sodium 143
Potassium 3.5
Chloride 110 H
Carbon Dioxide 29
BUN 13
Creatinine 1.6 H
Glucose 132 H
Calcium 9.6
Vital Signs:
Vital Signs
Temp Pulse Resp BP Pulse Ox
98.9 F 96 22 162/92 100
07/23/24 07:00 07/23/24 07:00 07/23/24 07:00 07/23/24 08:35 07/23/24 07:00
I&O
07/22/24 07/23/24 07/24/24
06:59 06:59 06:59
Intake Total 120 / 120 750 / 750
Balance 120 / 120 750 / 750
Review of Systems
-
History Source: Patient
All other systems: Reviewed and negative
Musculoskeletal: Reports Other (b/l LE pain, no back pain)
Physical Exam
-
General: No Apparent Distress and Comfortable
HEENT: Normocephalic
Respiratory: Clear to Auscultation
Cardiac: Regular Rhythm
GI: Soft, Nontender and Nondistended
Musculoskeletal: No Clubbing, No Cyanosis, No Edema and Other (no spinal tenderness )
Neuro: Awake
Psych: Calm
[2024-07-23 14:38] LABS: Glucose - Point of Care 136 mg/dl (70-99)
[2024-07-23 15:00] VITALS: BP 137/91
[2024-07-23] MEDS: NEURONTIN 100 MG PO ×2 (15:59→21:23)
[2024-07-23] MEDS: ATIVAN 1 MG PO ×2 (15:59→22:38)
[2024-07-23 17:19] LABS: Glucose - Point of Care 116 mg/dl (70-99)
[2024-07-23] MEDS: MELATONIN 5 MG PO (21:20)
[2024-07-23] MEDS: SENOKOT-S PO (21:21)
[2024-07-23 22:27] LABS: Glucose - Point of Care 105 mg/dl (70-99)
[2024-07-23] MEDS: LANTUS 0.04 UNITS SC (22:37)
[2024-07-23 23:15] VITALS: BP 156/80
[2024-07-24] MEDS: DEPAKOTE SPRINKLE 250 MG PO ×3 (01:00→15:08)
[2024-07-24 07:00] VITALS: BP 149/99
[2024-07-24 07:00] LABS: Hematocrit 29.2 % (37.0-47.0); Hemoglobin 9.2 g/dL (12.0-16.0); Mean Corp Hgb Conc. 31.5 g/dL (33.0-37.0); Mean Corpuscular Hgb 27.1 pg (27.0-31.0); Mean Corpuscular Volume 86.1 fL (81.0-99.0); Mean Platelet Volume 9.3 fL (7.4-10.4); Platelet Count 240 10^3/uL (130-400); Red Blood Cell Count 3.39 10^6/uL (4.20-5.40); Red Cell Dist. Width 13.3 % (11.5-14.5); White Blood Cell Count 3.6 10^3/uL (4.8-10.8)
[2024-07-24 07:16] LABS: ALT (SGPT) 19 U/L (0-35); AST (SGOT) 19 U/L (14-36); Albumin 2.8 g/dl (3.5-5.0); Alkaline Phosphatase 68 U/L (38-126); Blood Urea Nitrogen 12 mg/dl (7-17); Calcium 9.4 mg/dl (8.4-10.2); Carbon Dioxide 29 mmol/L (22-30); Chloride 108 mmol/L (98-107); Estimated Creatinine Clearance 41 ml/min; Glucose 112 mg/dl (70-99); Magnesium 1.5 mg/dl (1.6-2.3); Phosphorus 5.3 mg/dl (2.5-4.5); Potassium 3.7 mmol/L (3.5-5.1); Sodium 143 mmol/L (135-145); Total Bilirubin 0.3 mg/dl (0.2-1.3); Total Protein 5.5 g/dl (6.3-8.2); eGFR 35.86
[2024-07-24 07:33] LABS: % Basophils 0.6 % (0-2); % Eosinophils 3.9 % (0-6); % Immature Granulocytes 0.6 % (0-0.5); % Lymphocytes 61.6 % (20.5-51.1); % Monocytes 8.1 % (1.7-9.3); % Neutrophils 25.2 % (42.2-75.2); Absolute Eosinophils 0.1 10^3/uL (0-0.7); Absolute Lymphocytes 2.2 10^3/uL (1.2-3.4); Absolute Monocytes 0.3 10^3/uL (0.1-0.6); Absolute Neutrophils 0.9 10^3/uL (1.4-6.5); Nucleated Red Blood Cells % 0 %
[2024-07-24 08:04] LABS: Glucose - Point of Care 95 mg/dl (70-99)
[2024-07-24] MEDS: MAGNESIUM SULFATE 50 IV (08:41)
[2024-07-24] MEDS: NOVOLOG FLEXPEN-MODERATE RESISTANCE SC ×3 (08:43→17:12)
[2024-07-24] MEDS: ULTRAM 50 MG PO ×2 (08:48→17:14)
[2024-07-24] MEDS: NEURONTIN 100 MG PO ×2 (08:52→15:08)
[2024-07-24] MEDS: MYCOSTATIN ORAL SUSPENSION 5 ML PO ×3 (08:59→17:13)
[2024-07-24] MEDS: COREG 6.25 MG PO ×2 (09:00→20:23)
[2024-07-24] MEDS: KEPPRA 500 MG PO ×2 (09:00→20:19)
[2024-07-24] MEDS: ELIQUIS 5 MG PO ×2 (09:01→20:19)
[2024-07-24] MEDS: LIDOCAINE 4% PATCH 2 PATCH TOPICAL (09:02)
[2024-07-24] MEDS: MIRALAX 17 GRAMS PO (09:02)
[2024-07-24] MEDS: SENOKOT-S 1 TABLET PO ×2 (09:10→20:19)
[2024-07-24 11:28] VITALS: BP 125/77; O2SAT 98
[2024-07-24 11:30] LABS: Glucose - Point of Care 145 mg/dl (70-99)
[2024-07-24 11:33] VITALS: BP 125/77; PULSE 80; O2SAT 97
--- NOTE | 2024-07-24 11:33 | W.PN.HOSP.TC ---
Today's Communication/Plan
-
CM for SNF
Assessment / Plan
Assessment / Plan
54yo F with PMHx of traumatic brain injury s/p trach - removed and PEG brought from SNF after her PEG got dislodged. Could not be reinserted in ED, later family requested assessment for swallowing, which patient passed and started on dysphagia diet.
Monitoring for appropriate oral intake. As per - they want to look for alternative SNF - CM aware
A/P:
# dysphagia
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
start diet
GI follows, if patient fails - will need PEG at new site
#Mild leukopenia
#mild chronic anemia
#Hypokalemia
#Hypernatremia
#CKD stage 3b with RICKY on admission
2/2 poor oral intake
follow CBC , BMP
#Vit D deficiency
supplement
#Oral thrush
Nystatin
check HIV
#Hx of pulmonary embolism
on Eliquis
#hypomagnesemia
replete and follow
#DM type 2 with nephropathy
Insulin SS, DM diet, Accuchecks
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
#Essential HTN
#Anxiety/Agitation
#chronic b/l LE pain without radiculopathy
cont home meds
Neurontin helps - uptitrate PRN
DVT ppx Eliquis
Full code
I have spent at least 38min reviewing chart, test results, communication with consultants and providing direct patient care
Anticipated Discharge: 24 - 48 hours
Subjective/Interval History
-
Date of Service: July 24, 2024
Objective Data
-
Labs:
Laboratory Results
07/24/24
06:32
WBC 3.6 L
Hgb 9.2 L
Hct 29.2 L
Plt Count 240
Sodium 143
Potassium 3.7
Chloride 108 H
Carbon Dioxide 29
BUN 12
Creatinine 1.7 H
Glucose 112 H
Calcium 9.4
Total Bilirubin 0.3
AST 19
ALT 19
Alkaline Phosphatase 68
Vital Signs:
Vital Signs
Temp Pulse Resp BP Pulse Ox
98.5 F 92 24 149/99 100
07/24/24 07:00 07/24/24 07:00 07/24/24 07:00 07/24/24 07:00 07/24/24 07:00
I&O
07/23/24 07/24/24 07/25/24
06:59 06:59 06:59
Intake Total 750 / 750 900 / 900 50 / 50
Balance 750 / 750 900 / 900 50 / 50
Review of Systems
-
History Source: Patient
All other systems: Reviewed and negative
Physical Exam
-
General: No Apparent Distress and Comfortable
HEENT: Normocephalic
Respiratory: Clear to Auscultation
GI: Soft, Nontender and Nondistended
Neuro: Awake, Alert, Oriented and AO x 3
Psych: Calm
[2024-07-24 12:19] LABS: HIV Combo Negative (Negative)
[2024-07-24] MEDS: THERAGRAN 1 TABLET PO (12:51)
--- NOTE | 2024-07-24 14:35 | CM ---
CM reviewed chart, patient seen bedside with , discussed referrals sent to [facility], and [facility]. Family requesting follow up with [facility], facilities reviewing and will update CM on ability to accept. Patient
will require insurance auth once accepting facility found. CM will continue to follow for all discharge planning needs.
Plan; SNF pending accepting facility, auth required
[2024-07-24 15:00] VITALS: BP 149/104
[2024-07-24] MEDS: TYLENOL 650 MG PO ×2 (15:09→20:20)
[2024-07-24] MEDS: ATIVAN 1 MG PO (15:51)
[2024-07-24 17:11] LABS: Glucose - Point of Care 120 mg/dl (70-99)
[2024-07-24 20:26] VITALS: BP 144/79
[2024-07-24 21:44] LABS: Glucose - Point of Care 172 mg/dl (70-99)
[2024-07-24] MEDS: LANTUS 0.04 UNITS SC (22:11)
[2024-07-24 23:02] VITALS: BP 124/86
[2024-07-25] MEDS: NEURONTIN PO (00:15)
[2024-07-25] MEDS: MYCOSTATIN ORAL SUSPENSION PO (00:15)
[2024-07-25] MEDS: MELATONIN PO (00:15)
[2024-07-25] MEDS: DEPAKOTE SPRINKLE 250 MG PO ×4 (00:24→22:28)
[2024-07-25] MEDS: NEURONTIN 100 MG PO ×4 (00:41→22:27)
--- NOTE | 2024-07-25 04:23 | DOWNTIME ---
There was a [employer] Downtime on 07/25/2024 from 0100 to 07/26/2023 at 0420 . Downtime documentation of patient's care, including medication administrations, has been reconciled in the electronic record per guidelines. Refer to the
patient's paper chart under the miscellaneous tab to see printed paper medication records and downtime forms.
[2024-07-25] MEDS: ULTRAM 50 MG PO ×3 (06:34→23:46)
[2024-07-25 06:50] LABS: Hematocrit 27.8 % (37.0-47.0); Hemoglobin 9.1 g/dL (12.0-16.0); Mean Corp Hgb Conc. 32.7 g/dL (33.0-37.0); Mean Corpuscular Hgb 27.7 pg (27.0-31.0); Mean Corpuscular Volume 84.8 fL (81.0-99.0); Mean Platelet Volume 9.2 fL (7.4-10.4); Platelet Count 246 10^3/uL (130-400); Red Blood Cell Count 3.28 10^6/uL (4.20-5.40); Red Cell Dist. Width 13.4 % (11.5-14.5); White Blood Cell Count 3.7 10^3/uL (4.8-10.8)
[2024-07-25 07:00] VITALS: BP 123/86
[2024-07-25 07:13] LABS: Blood Urea Nitrogen 13 mg/dl (7-17); Calcium 9.4 mg/dl (8.4-10.2); Carbon Dioxide 28 mmol/L (22-30); Chloride 104 mmol/L (98-107); Estimated Creatinine Clearance 41 ml/min; Glucose 92 mg/dl (70-99); Potassium 3.6 mmol/L (3.5-5.1); Sodium 139 mmol/L (135-145); eGFR 35.86
[2024-07-25 08:31] LABS: Glucose - Point of Care 96 mg/dl (70-99)
[2024-07-25 08:33] LABS: % Basophils 0.8 % (0-2); % Eosinophils 4.1 % (0-6); % Immature Granulocytes 0.5 % (0-0.5); % Lymphocytes 57.3 % (20.5-51.1); % Neutrophils 28.3 % (42.2-75.2); Absolute Eosinophils 0.2 10^3/uL (0-0.7); Absolute Lymphocytes 2.1 10^3/uL (1.2-3.4); Absolute Monocytes 0.3 10^3/uL (0.1-0.6); Nucleated Red Blood Cells % 0 %
[2024-07-25] MEDS: NOVOLOG FLEXPEN-MODERATE RESISTANCE SC ×2 (09:58→16:50)
[2024-07-25 10:11] VITALS: BMI 31.7
[2024-07-25] MEDS: TYLENOL 650 MG PO ×2 (10:11→16:41)
[2024-07-25] MEDS: ELIQUIS 5 MG PO ×2 (10:11→19:54)
[2024-07-25] MEDS: THERAGRAN 1 TABLET PO (10:12)
[2024-07-25] MEDS: KEPPRA 500 MG PO ×2 (10:12→19:54)
[2024-07-25] MEDS: COREG 6.25 MG PO ×2 (10:12→19:56)
[2024-07-25] MEDS: MYCOSTATIN ORAL SUSPENSION 5 ML PO ×4 (10:13→22:28)
[2024-07-25] MEDS: SENOKOT-S 1 TABLET PO ×2 (10:13→19:53)
[2024-07-25] MEDS: MIRALAX 17 GRAMS PO (10:13)
[2024-07-25] MEDS: LIDOCAINE 4% PATCH 2 PATCH TOPICAL (10:13)
--- NOTE | 2024-07-25 10:57 | W.PN.HOSP.TC ---
Today's Communication/Plan
-
CM for alternative placemnt
Assessment / Plan
Assessment / Plan
54yo F with PMHx of traumatic brain injury s/p trach - removed and PEG brought from SNF after her PEG got dislodged. Could not be reinserted in ED, later family requested assessment for swallowing, which patient passed and started on dysphagia diet.
Monitoring for appropriate oral intake. As per - they want to look for alternative SNF - CM aware
A/P:
# dysphagia
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
start diet
GI follows, if patient fails - will need PEG at new site
#Mild leukopenia
#mild chronic anemia
#Hypokalemia
#Hypernatremia
#CKD stage 3b with RICKY on admission
2/2 poor oral intake
follow CBC , BMP
#Vit D deficiency
supplement
#Oral thrush
Nystatin
HIV neg
#Hx of pulmonary embolism
on Eliquis
#hypomagnesemia
replete and follow
#DM type 2 with nephropathy
Insulin SS, DM diet, Accuchecks
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
#Essential HTN
#Anxiety/Agitation
#chronic b/l LE pain without radiculopathy
cont home meds
Neurontin helps - uptitrate PRN
DVT ppx Eliquis
Full code
I have spent at least 38min reviewing chart, test results, communication with consultants and providing direct patient care
Anticipated Discharge: Within 24 hours
Subjective/Interval History
-
Date of Service: July 25, 2024
Objective Data
-
Labs:
Laboratory Results
07/25/24
06:24
WBC 3.7 L
Hgb 9.1 L
Hct 27.8 L
Plt Count 246
Sodium 139
Potassium 3.6
Chloride 104
Carbon Dioxide 28
BUN 13
Creatinine 1.7 H
Glucose 92
Calcium 9.4
Vital Signs:
Vital Signs
Temp Pulse Resp BP Pulse Ox
98.3 F 86 20 123/86 100
07/25/24 07:00 07/25/24 07:00 07/25/24 07:00 07/25/24 07:00 07/25/24 07:00
I&O
07/24/24 07/25/24 07/26/24
06:59 06:59 06:59
Intake Total 900 / 900 470 / 470 200 / 200
Balance 900 / 900 470 / 470 200 / 200
Review of Systems
-
History Source: Patient
All other systems: Reviewed and negative
Physical Exam
-
General: No Apparent Distress
HEENT: Normocephalic
Respiratory: Clear to Auscultation
GI: Soft, Nontender and Nondistended
Skin: Warm
Neuro: Awake, Alert, Oriented and AO x 3
Psych: Calm
[2024-07-25 11:45] LABS: Glucose - Point of Care 169 mg/dl (70-99)
[2024-07-25] MEDS: NOVOLOG FLEXPEN-MODERATE RESISTANCE 1 UNITS SC (12:24)
[2024-07-25] MEDS: ATIVAN 1 MG PO ×3 (12:24→23:46)
--- NOTE | 2024-07-25 13:42 | CM ---
CM reviewed chart, 23 total SNF referrals placed, no accepting facility at this time. Awaiting to hear ability to accept from [facility]. [facility] able to accept however no accepting beds. CM will continue to send referrals for SNF,
will require insurance auth. CM will continue to follow for all discharge planning needs.
Plan; SNF pending accepting facility, will require auth.
[2024-07-25 15:00] VITALS: BP 141/89
[2024-07-25 16:38] LABS: Glucose - Point of Care 122 mg/dl (70-99)
[2024-07-25 21:21] LABS: Glucose - Point of Care 101 mg/dl (70-99)
[2024-07-25] MEDS: LANTUS 0.04 UNITS SC (22:27)
[2024-07-25] MEDS: MELATONIN 5 MG PO (22:27)
[2024-07-25 23:00] VITALS: BP 139/86
[2024-07-26 07:00] VITALS: BP 142/93
[2024-07-26 08:21] LABS: Glucose - Point of Care 90 mg/dl (70-99)
[2024-07-26] MEDS: NOVOLOG FLEXPEN-MODERATE RESISTANCE SC ×2 (08:46→17:03)
[2024-07-26] MEDS: DEPAKOTE SPRINKLE 250 MG PO ×3 (08:47→22:55)
[2024-07-26] MEDS: ELIQUIS 5 MG PO ×2 (08:48→20:12)
[2024-07-26] MEDS: KEPPRA 500 MG PO ×2 (08:48→20:12)
[2024-07-26] MEDS: THERAGRAN 1 TABLET PO (08:48)
[2024-07-26] MEDS: NEURONTIN 100 MG PO (08:48)
[2024-07-26] MEDS: COREG 6.25 MG PO ×2 (08:48→20:12)
[2024-07-26] MEDS: SENOKOT-S 1 TABLET PO ×2 (08:48→20:12)
[2024-07-26] MEDS: LIDOCAINE 4% PATCH 2 PATCH TOPICAL (08:49)
[2024-07-26] MEDS: MYCOSTATIN ORAL SUSPENSION 5 ML PO ×4 (08:49→21:58)
[2024-07-26] MEDS: MIRALAX 17 GRAMS PO (08:50)
[2024-07-26 10:00] VITALS: BP 135/88; PULSE 94; O2SAT 98
--- NOTE | 2024-07-26 10:51 | CM ---
CM reviewed chart, additional referrals placed (47 total). Patient being denied due to care needs exceeding SNF ability, no bed, or young age. Referrals will continue to be placed for STR, will require insurance auth. Clinicals faxed to [facility],
voicemail left for [facility], [facility], [facility], [facility], and [facility]. CM will continue to follow for all discharge planning needs.
Plan; ongoing SNF search- pending accepting facility, will require auth
[2024-07-26] MEDS: ULTRAM 50 MG PO ×2 (10:55→23:02)
[2024-07-26] MEDS: ATIVAN 1 MG PO ×2 (10:55→23:03)
--- NOTE | 2024-07-26 11:35 | W.PN.HOSP.TC ---
Today's Communication/Plan
-
Increased Neurontin
COnt attempts for placement by CM
Assessment / Plan
Assessment / Plan
54yo F with PMHx of traumatic brain injury s/p trach - removed and PEG brought from SNF after her PEG got dislodged. Could not be reinserted in ED, later family requested assessment for swallowing, which patient passed and started on dysphagia diet.
Monitoring for appropriate oral intake. As per - they want to look for alternative SNF - CM aware
A/P:
# dysphagia
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
start diet
GI follows, if patient fails - will need PEG at new site
#Mild leukopenia
#mild chronic anemia
#Hypokalemia
#Hypernatremia
#CKD stage 3b with RICKY on admission
2/2 poor oral intake
follow CBC , BMP
#Vit D deficiency
supplement
#Oral thrush
Nystatin
HIV neg
#Hx of pulmonary embolism
on Eliquis
#hypomagnesemia
replete and follow
#DM type 2 with nephropathy
Insulin SS, DM diet, Accuchecks
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
#Essential HTN
#Anxiety/Agitation
#chronic b/l LE pain without radiculopathy
cont home meds
Neurontin helps - uptitrate PRN
DVT ppx Eliquis
Full code
I have spent at least 38min reviewing chart, test results, communication with consultants and providing direct patient care
Anticipated Discharge: Within 24 hours
Subjective/Interval History
-
Date of Service: July 26, 2024
Objective Data
-
Vital Signs:
Vital Signs
Temp Pulse Resp BP Pulse Ox
98.2 F 83 21 142/93 96
07/26/24 07:00 07/26/24 07:00 07/26/24 07:00 07/26/24 07:00 07/26/24 07:55
I&O
07/25/24 07/26/24 07/27/24
06:59 06:59 06:59
Intake Total 470 / 470 680 / 680
Balance 470 / 470 680 / 680
Review of Systems
-
History Source: Patient
All other systems: Reviewed and negative
Physical Exam
-
General: No Apparent Distress
HEENT: Normocephalic
Neuro: Awake, Alert, Oriented and AO x 3
Psych: Calm
[2024-07-26 11:43] LABS: Glucose - Point of Care 185 mg/dl (70-99)
[2024-07-26] MEDS: NOVOLOG FLEXPEN-MODERATE RESISTANCE 1 UNITS SC (12:22)
[2024-07-26 13:34] VITALS: BP 140/80
[2024-07-26 15:00] VITALS: BP 134/85
[2024-07-26] MEDS: NEURONTIN 200 MG PO ×2 (15:17→21:58)
[2024-07-26 17:00] LABS: Glucose - Point of Care 116 mg/dl (70-99)
[2024-07-26] MEDS: MELATONIN 5 MG PO (21:57)
[2024-07-26 22:13] LABS: Glucose - Point of Care 132 mg/dl (70-99)
[2024-07-26] MEDS: LANTUS 0.04 UNITS SC (22:54)
[2024-07-26 23:07] VITALS: BP 119/79
[2024-07-27 07:20] VITALS: BP 148/91
[2024-07-27 07:56] LABS: Glucose - Point of Care 98 mg/dl (70-99)
[2024-07-27] MEDS: NOVOLOG FLEXPEN-MODERATE RESISTANCE SC ×2 (08:12→16:59)
[2024-07-27] MEDS: SENOKOT-S 1 TABLET PO ×2 (08:12→20:09)
[2024-07-27] MEDS: ELIQUIS 5 MG PO ×2 (08:13→19:25)
[2024-07-27] MEDS: THERAGRAN 1 TABLET PO (08:13)
[2024-07-27] MEDS: COREG 6.25 MG PO ×2 (08:13→19:42)
[2024-07-27] MEDS: KEPPRA 500 MG PO ×2 (08:14→19:25)
[2024-07-27] MEDS: NEURONTIN 200 MG PO ×3 (08:14→21:00)
[2024-07-27] MEDS: DEPAKOTE SPRINKLE 250 MG PO ×3 (08:14→23:04)
[2024-07-27] MEDS: MIRALAX 17 GRAMS PO (08:15)
[2024-07-27] MEDS: MYCOSTATIN ORAL SUSPENSION 5 ML PO ×4 (08:15→21:00)
[2024-07-27] MEDS: LIDOCAINE 4% PATCH 2 PATCH TOPICAL (08:15)
--- NOTE | 2024-07-27 10:26 | W.PN.HOSP.TC ---
Today's Communication/Plan
-
cont placement attempts
Assessment / Plan
Assessment / Plan
54yo F with PMHx of traumatic brain injury s/p trach - removed and PEG brought from SNF after her PEG got dislodged. Could not be reinserted in ED, later family requested assessment for swallowing, which patient passed and started on dysphagia diet.
Monitoring for appropriate oral intake. LE pain improving on Gabapentin. As per - they want to look for alternative SNF - CM aware. Multiple referrals sent, but due to complex Hx - still no acceptance
A/P:
# dysphagia
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
start diet
GI follows, if patient fails - will need PEG at new site
#Mild leukopenia
#mild chronic anemia
#Hypokalemia
#Hypernatremia
#CKD stage 3b with RICKY on admission
2/2 poor oral intake
follow CBC , BMP
#Vit D deficiency
supplement
#Oral thrush
Nystatin
HIV neg
#Hx of pulmonary embolism
on Eliquis
#hypomagnesemia
replete and follow
#DM type 2 with nephropathy
Insulin SS, DM diet, Accuchecks
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
#Essential HTN
#Anxiety/Agitation
#chronic b/l LE pain without radiculopathy
cont home meds
Neurontin helps - uptitrate PRN
DVT ppx Eliquis
Full code
I have spent at least 38min reviewing chart, test results, communication with consultants and providing direct patient care
Anticipated Discharge: > 48 hours
Subjective/Interval History
-
Date of Service: July 27, 2024
Objective Data
-
Labs:
Laboratory Results
07/27/24
06:00
WBC Pending
Hgb Pending
Hct Pending
Plt Count Pending
Vital Signs:
Vital Signs
Temp Pulse Resp BP Pulse Ox
98.5 F 91 22 148/91 95
07/27/24 07:20 07/27/24 07:20 07/27/24 07:20 07/27/24 07:20 07/27/24 08:15
I&O
07/26/24 07/27/24 07/28/24
06:59 06:59 06:59
Intake Total 680 / 680 360 / 360
Balance 680 / 680 360 / 360
Review of Systems
-
History Source: Patient
All other systems: Reviewed and negative
Physical Exam
-
General: No Apparent Distress
HEENT: Normocephalic
Neuro: Awake, Alert, Oriented and AO x 3
Psych: Calm
[2024-07-27 11:36] LABS: Glucose - Point of Care 168 mg/dl (70-99)
[2024-07-27] MEDS: NOVOLOG FLEXPEN-MODERATE RESISTANCE 1 UNITS SC (12:02)
--- NOTE | 2024-07-27 15:23 | CM ---
CM reviewed chart, spoke with Schreiber from [facility] in [place], able to accept, may have bed availability over weekend, otherwise early next week. CM spoke with patients spouse and brother on conference call, [facility]
Please call Schreiber over weekend to see if bed available, will require auth (Schreiber cell phone: [phone]). CM will continue to follow for all discharge planning needs.
Plan; [facility], will require auth, potentially have bed over weekend versus early next week
[facility]
Dr. Russell: [phone]
[2024-07-27 15:40] VITALS: BP 165/90
[2024-07-27 16:55] LABS: Glucose - Point of Care 97 mg/dl (70-99)
[2024-07-27 18:08] LABS: % Basophils 0.4 % (0-2); % Eosinophils 0.9 % (0-6); % Immature Granulocytes 0.4 % (0-0.5); % Lymphocytes 22.2 % (20.5-51.1); % Monocytes 6.2 % (1.7-9.3); % Neutrophils 69.9 % (42.2-75.2); Absolute Eosinophils 0.1 10^3/uL (0-0.7); Absolute Lymphocytes 1.2 10^3/uL (1.2-3.4); Absolute Monocytes 0.3 10^3/uL (0.1-0.6); Absolute Neutrophils 3.8 10^3/uL (1.4-6.5); Hematocrit 29.1 % (37.0-47.0); Hemoglobin 9.6 g/dL (12.0-16.0); Mean Corpuscular Hgb 27.5 pg (27.0-31.0); Mean Corpuscular Volume 83.4 fL (81.0-99.0); Mean Platelet Volume 9.1 fL (7.4-10.4); Nucleated Red Blood Cells % 0 %; Platelet Count 231 10^3/uL (130-400); Red Blood Cell Count 3.49 10^6/uL (4.20-5.40); Red Cell Dist. Width 13.9 % (11.5-14.5); White Blood Cell Count 5.5 10^3/uL (4.8-10.8)
[2024-07-27] MEDS: ATIVAN 1 MG PO (19:25)
[2024-07-27] MEDS: TYLENOL 650 MG PO (19:42)
[2024-07-27] MEDS: NSS (PRESERVATIVE FREE) 0.125 ML IV (20:51)
[2024-07-27] MEDS: ATIVAN 0.25 MG IV (20:51)
[2024-07-27] MEDS: MELATONIN 5 MG PO (21:00)
[2024-07-27 22:09] LABS: Glucose - Point of Care 150 mg/dl (70-99)
[2024-07-27] MEDS: LANTUS 0.04 UNITS SC (22:10)
[2024-07-27 23:01] VITALS: BP 128/86
[2024-07-28] MEDS: ULTRAM 50 MG PO ×2 (00:06→08:26)
[2024-07-28] MEDS: ATIVAN 1 MG PO ×2 (01:26→08:26)
[2024-07-28] MEDS: NSS (PRESERVATIVE FREE) 0.125 ML IV (02:30)
[2024-07-28] MEDS: ATIVAN 0.25 MG IV (02:30)
--- NOTE | 2024-07-28 05:09 | PTCARENOTE ---
Patient continued to yell out for hours despite redirection, complete bed bath, toileting, etc. Patient attempted to get OOB several times (bed alarm in place). PRN Ativan PO administered (x2) but did not help patient's anxiety and restlessness.
House SPECIAL EDUCATION PARAPROFESSIONAL ordered b/l soft limb restraints/ 4 rails and Ativan 0.25mg IV (x2)
[2024-07-28 06:54] LABS: COVID-19 Antigen Negative (Negative)
--- NOTE | 2024-07-28 06:59 | PTCARENOTE ---
Pt ordered STAT CT Head. Patient restless, anxious, yelling out. This RN TT Dr. Marroquin for an order of IV Ativan for scan. Report handed off to oncoming RN. Derrick from CAT scan made aware.
[2024-07-28 07:05] LABS: % Basophils 0.4 % (0-2); % Eosinophils 0.2 % (0-6); % Immature Granulocytes 0.2 % (0-0.5); % Neutrophils 63.2 % (42.2-75.2); Absolute Lymphocytes 1.3 10^3/uL (1.2-3.4); Absolute Monocytes 0.4 10^3/uL (0.1-0.6); Absolute Neutrophils 2.9 10^3/uL (1.4-6.5); Hematocrit 29.9 % (37.0-47.0); Mean Corp Hgb Conc. 33.4 g/dL (33.0-37.0); Mean Corpuscular Hgb 27.8 pg (27.0-31.0); Mean Corpuscular Volume 83.1 fL (81.0-99.0); Mean Platelet Volume 8.7 fL (7.4-10.4); Nucleated Red Blood Cells % 0 %; Platelet Count 218 10^3/uL (130-400); Red Cell Dist. Width 13.9 % (11.5-14.5); White Blood Cell Count 4.7 10^3/uL (4.8-10.8)
[2024-07-28 07:19] VITALS: BP 152/80
[2024-07-28 07:27] LABS: ALT (SGPT) 16 U/L (0-35); AST (SGOT) 18 U/L (14-36); Alkaline Phosphatase 67 U/L (38-126); Blood Urea Nitrogen 15 mg/dl (7-17); Calcium 9.9 mg/dl (8.4-10.2); Carbon Dioxide 29 mmol/L (22-30); Chloride 103 mmol/L (98-107); Estimated Creatinine Clearance 41 ml/min; Glucose 90 mg/dl (70-99); Potassium 3.8 mmol/L (3.5-5.1); Sodium 137 mmol/L (135-145); Total Bilirubin 0.4 mg/dl (0.2-1.3); Total Protein 5.9 g/dl (6.3-8.2); eGFR 35.86
[2024-07-28 07:58] LABS: TSH Reflex To Free T4 1.14 uIU/ml (0.47-4.68)
[2024-07-28 08:08] LABS: Glucose - Point of Care 102 mg/dl (70-99)
[2024-07-28] MEDS: ATIVAN 1 MG IV (08:24)
[2024-07-28] MEDS: DEPAKOTE SPRINKLE 250 MG PO ×3 (08:25→22:54)
[2024-07-28] MEDS: TYLENOL 650 MG PO (08:25)
[2024-07-28] MEDS: THERAGRAN 1 TABLET PO (08:26)
[2024-07-28] MEDS: NEURONTIN 200 MG PO ×3 (08:26→21:09)
[2024-07-28] MEDS: ELIQUIS 5 MG PO ×2 (08:26→21:09)
[2024-07-28] MEDS: COREG 6.25 MG PO ×2 (08:26→21:11)
[2024-07-28] MEDS: SENOKOT-S 1 TABLET PO ×2 (08:26→21:08)
[2024-07-28] MEDS: KEPPRA 500 MG PO ×2 (08:26→21:09)
[2024-07-28] MEDS: NORVASC 2.5 MG PO (08:27)
[2024-07-28] MEDS: LIDOCAINE 4% PATCH 2 PATCH TOPICAL (08:27)
[2024-07-28] MEDS: MYCOSTATIN ORAL SUSPENSION 5 ML PO ×4 (08:27→21:09)
[2024-07-28] MEDS: NOVOLOG FLEXPEN-MODERATE RESISTANCE SC ×3 (08:28→16:50)
[2024-07-28] MEDS: DRISDOL (VITAMIN D2) PO (08:28)
[2024-07-28] MEDS: MIRALAX 17 GRAMS PO (08:29)
--- NOTE | 2024-07-28 10:38 | W.PN.HOSP.TC ---
Today's Communication/Plan
-
Septic w/u
Psych consult
RN informed to send UA FELECIA so Abx can be started
Assessment / Plan
Assessment / Plan
54yo F with PMHx of traumatic brain injury s/p trach - removed and PEG brought from SNF after her PEG got dislodged. Could not be reinserted in ED, later family requested assessment for swallowing, which patient passed and started on dysphagia diet.
Monitoring for appropriate oral intake. LE pain improving on Gabapentin. As per - they want to look for alternative SNF - CM aware. Multiple referrals sent, but due to complex Hx - still no acceptance
Meanwhile developed new fever on 07/27/24
A/P:
#Fever
started on 07/27/24
Bcx NTD
Chest XR without acute pneumonia
COVID-19, Influenza neg
Head CT without acute findings
UA pending and plan for Abx afterwards
#dysphagia
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
start diet
GI follows, if patient fails - will need PEG at new site
#Mild leukopenia
#mild chronic anemia
#Hypokalemia
#Hypernatremia
#CKD stage 3b with RICKY on admission
2/2 poor oral intake
follow CBC , BMP
#Hx of anoxic brain injury 2/2 cardiac arrest
poor judgement, frequent episodes of anxiety and agitation
Psych consult
#Vit D deficiency
supplement
#Oral thrush
Nystatin
HIV neg
#Hx of pulmonary embolism
on Eliquis
#hypomagnesemia
replete and follow
#DM type 2 with nephropathy
Insulin SS, DM diet, Accuchecks
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
#Essential HTN
#Anxiety/Agitation
#chronic b/l LE pain without radiculopathy
cont home meds
Neurontin helps - uptitrate PRN
DVT ppx Eliquis
Full code
I have spent at least 38min reviewing chart, test results, communication with consultants and providing direct patient care
Anticipated Discharge: > 48 hours
Subjective/Interval History
-
Date of Service: July 28, 2024
Objective Data
-
Labs:
Laboratory Results
07/28/24 07/28/24
06:23 06:55
WBC 4.7 L
Hgb 10.0 L
Hct 29.9 L
Plt Count 218
Sodium 137
Potassium 3.8
Chloride 103
Carbon Dioxide 29
BUN 15
Creatinine 1.7 H
Glucose 90
Calcium 9.9
Total Bilirubin 0.4
AST 18
ALT 16
Alkaline Phosphatase 67
Vital Signs:
Vital Signs
Temp Pulse Resp BP Pulse Ox
103.0 F H 128 15 152/80 98
07/28/24 07:19 07/28/24 07:19 07/28/24 07:19 07/28/24 07:19 07/28/24 07:19
I&O
07/27/24 07/28/24 07/29/24
06:59 06:59 06:59
Intake Total 600 / 600
Balance 600 / 600
Review of Systems
-
Unable to obtain full review of systems at this time due to: Other (sedated)
Physical Exam
-
General: Comfortable
Respiratory: Clear to Auscultation
Cardiac: Regular Rhythm
GI: Soft, Nontender and Nondistended
Genito-urinary: No Costovertebral Tender
Musculoskeletal: No Clubbing, No Cyanosis and No Edema
Skin: Negative Rash
Neuro: Sedated
--- NOTE | 2024-07-28 11:32 | PHA.VAN.IN ---
Assessment
- Assessment
Renal Function: Unknown baseline
Concomitant Antimicrobials: zosyn
Plan
- Plan
Initial / Loading Dose: 2000mg
Maintenance Regimen: prn by level
Monitoring: random 07/29 in AM
Pharmacokinetics Vancomycin I
- -
Patient Age: 54
Patient Sex: Female
Vancomycin Day #: 1
Indication: Other
Requesting Provider: Dr. Marroquin
Height / Weight:
Height 5 ft 5 in
Actual Weight 82.724 kg
IBW in k
- Vital Signs / Lab Results
Temp Pulse Resp BP Pulse Ox
100.1 F 128 15 152/80 98
07/28/24 11:00 07/28/24 07:19 07/28/24 07:19 07/28/24 07:19 07/28/24 07:19
Lab Results - Hematology
07/27/24 07/27/24 07/28/24
06:00 17:55 06:55
WBC Cancelled 5.5 4.7 L
Lab Results - Chemistry
07/28/24
06:23
BUN 15
Creatinine 1.7 H
Estimated Creat Clear 41
Albumin 3.0 L
Microbiology Results
07/28/24 06:27 Influenza Types A & B (RAJAN) - Final
Nasal Swab Negative for Influenza A & B, NAAT
Negative results must be combined with clinical observations
and patient history.
Nucleic Acid Amplification test (NAAT)performed on the
[employer] platform.
[2024-07-28] MEDS: VANCOCIN 540 MG IV (11:40)
[2024-07-28 11:48] LABS: Glucose - Point of Care 145 mg/dl (70-99)
[2024-07-28 11:58] LABS: Urine Albumin 1+ (Neg - Trace); Urine Bilirubin Negative (Negative); Urine Character Clear (Clear); Urine Color Yellow; Urine Glucose Negative (Negative); Urine Ketone 1+ (Negative); Urine Leukocyte 1+ (Negative); Urine Nitrite Negative (Negative); Urine Occult Blood Negative (Negative); Urine Urobilinogen Negative (Neg - 1+); Urine pH 6.5 (5.0-9.0)
[2024-07-28 12:13] LABS: Urine Amorphous Seen; Urine Squamous Cell >30 /LPF (Few)
[2024-07-28 12:15] LABS: Urine Red Blood Cell 0-2 /HPF (0-2)
[2024-07-28] MEDS: ZOSYN 50 IV ×3 (12:52→22:54)
[2024-07-28 15:06] VITALS: BP 115/89
--- NOTE | 2024-07-28 16:03 | CON.MD ---
Consultation - Medical
-
54 y/o woman with anoxic injury 06/10/24 from cardiac arrest (with PE, details unclear) who was admitted from [facility] as she pulled out her feeding tube. Furthermore, her family requested a swallowing evaluation which she passed, so the
tube is not needed and she now is able to eat. Has CKD on HD, hx GI bleed, IDDM, and hypertension. Asked to see her due to intermittent agitation. She had a tracheostomy, but pulled it out and is breathing on her own. Family has requested
placement at a different SNF.
Chat reviewed and spoke to nurse. Unfortunately, her had been visiting but left the hospital a short while before I arrived a the room. Therefore, information limited.
Pulse intermittently elevated. BP 115/89, WBC 4.7, Creat 1.7.
She is the following psychiatric/neurological medications: Deapkote Sprinkle 250 mg. q 8 H; Keppra 500 mg. BID; melatonin 5 mg. H and gabapentin 200 mg. TID for LE pain. She had been prescribed lorazepam, but it has been discontinued.
On exam, obese woman fast asleep,but arousable. She believes she is 'at school' (perhaps where she had worked). Disoriented to year. Repeated her when asked today's date and her age. Said she is not .
Agitation could be addressed in several different ways. I will order risperidone 0.25 mg. twice a day. Risks of an atypical antipsychotic have been considered and potential benefit outweighs the risk. Might also consider raising gabapentin which
could be helpful. Keppra can have psychiatric adverse effects as well.
Psychiatry will follow
[2024-07-28 16:47] LABS: Glucose - Point of Care 105 mg/dl (70-99)
[2024-07-28 20:55] LABS: Glucose - Point of Care 89 mg/dl (70-99)
[2024-07-28] MEDS: MELATONIN 5 MG PO (21:09)
[2024-07-28] MEDS: RISPERDAL 0.25 MG PO (21:09)
[2024-07-28] MEDS: LANTUS 0.04 UNITS SC (21:10)
[2024-07-28 22:51] VITALS: BP 112/60
[2024-07-29] MEDS: ZOSYN 50 IV ×4 (05:04→23:02)
[2024-07-29 06:51] LABS: Hemoglobin 9.5 g/dL (12.0-16.0); Mean Corp Hgb Conc. 31.7 g/dL (33.0-37.0); Mean Corpuscular Hgb 26.9 pg (27.0-31.0); Mean Platelet Volume 8.9 fL (7.4-10.4); Platelet Count 199 10^3/uL (130-400); Red Blood Cell Count 3.53 10^6/uL (4.20-5.40); Red Cell Dist. Width 13.9 % (11.5-14.5); White Blood Cell Count 3.5 10^3/uL (4.8-10.8)
[2024-07-29 07:07] LABS: Vancomycin Random 19.2 ug/ml
[2024-07-29 07:19] LABS: ALT (SGPT) 19 U/L (0-35); AST (SGOT) 22 U/L (14-36); Albumin 2.8 g/dl (3.5-5.0); Alkaline Phosphatase 61 U/L (38-126); Blood Urea Nitrogen 21 mg/dl (7-17); Calcium 9.7 mg/dl (8.4-10.2); Carbon Dioxide 29 mmol/L (22-30); Chloride 105 mmol/L (98-107); Estimated Creatinine Clearance 35 ml/min; Glucose 98 mg/dl (70-99); Potassium 3.7 mmol/L (3.5-5.1); Sodium 138 mmol/L (135-145); Total Bilirubin 0.5 mg/dl (0.2-1.3); Total Protein 5.6 g/dl (6.3-8.2)
[2024-07-29 07:20] LABS: Procalcitonin 1.24 ng/ml (0.0-0.25)
[2024-07-29 07:37] VITALS: BP 107/70
[2024-07-29 07:49] LABS: Glucose - Point of Care 92 mg/dl (70-99)
[2024-07-29] MEDS: NOVOLOG FLEXPEN-MODERATE RESISTANCE SC ×3 (07:52→16:26)
[2024-07-29] MEDS: RISPERDAL 0.25 MG PO ×2 (07:54→20:16)
[2024-07-29] MEDS: KEPPRA 500 MG PO ×2 (07:56→20:17)
[2024-07-29] MEDS: SENOKOT-S 1 TABLET PO ×2 (07:56→20:16)
[2024-07-29] MEDS: MYCOSTATIN ORAL SUSPENSION 5 ML PO ×3 (07:56→23:01)
[2024-07-29] MEDS: COREG 6.25 MG PO ×2 (07:56→20:17)
[2024-07-29] MEDS: NEURONTIN 200 MG PO ×3 (07:56→23:01)
[2024-07-29] MEDS: DEPAKOTE SPRINKLE 250 MG PO ×3 (07:56→23:02)
[2024-07-29] MEDS: ELIQUIS 5 MG PO ×2 (07:56→20:17)
[2024-07-29] MEDS: THERAGRAN 1 TABLET PO (07:56)
[2024-07-29] MEDS: MIRALAX 17 GRAMS PO (07:57)
[2024-07-29] MEDS: NORVASC 2.5 MG PO (07:57)
[2024-07-29] MEDS: LIDOCAINE 4% PATCH 2 PATCH TOPICAL (07:57)
--- NOTE | 2024-07-29 08:11 | PHA.VAN.FU ---
Vancomycin Assessment / Plan
- Assessment
Renal Function: SCR Increasing
WBC's are: Stable
In the past 24 hrs, patient has been: Febrile (103F)
Concomitant Antimicrobials: ZOSYN
- Assessment - Therapeutic Drug Monitoring
Random Level: 19.2
- Dosing Plan
Dosing by Level: Hold off on dosing today
- Monitoring Plan
Random Level: 07/30 IN AM
- Follow Up
Pharmacy will continue to follow.
Vancomycin Follow UP
- -
Patient Age: 54
Patient Sex: Female
Vancomycin Day #: 2
Indication: Other
Requesting Provider: Dr. Marroquin
Height / Weight:
Height 5 ft 5 in
Actual Weight 82.724 kg
IBW in k
- Vital Signs / Lab Results
Temp Pulse Resp BP Pulse Ox
98.3 F 92 15 107/70 100
07/29/24 07:37 07/29/24 07:57 07/29/24 07:37 07/29/24 07:57 07/29/24 07:37
Lab Results - Hematology
07/27/24 07/27/24 07/28/24
06:00 17:55 06:55
WBC Cancelled 5.5 4.7 L
07/29/24
06:37
WBC 3.5 L
Lab Results - Chemistry
07/28/24 07/29/24
06:23 06:37
BUN 15 21 H
Creatinine 1.7 H 2.0 H
Estimated Creat Clear 41 35
Albumin 3.0 L 2.8 L
Lab Results - Urine
07/28/24
11:16
Urine Nitrite (Reflex) Negative
Leukocyte Esterase Rfl 1+ A
Ur Squamous Epith Cells >30
Microbiology Results
07/28/24 06:25 Blood Culture - Preliminary
Blood/Venous No Growth in 24 hours- Final report to follow
07/28/24 06:25 Blood Culture - Preliminary
Blood/Venous No Growth in 24 hours- Final report to follow
07/28/24 06:27 Influenza Types A & B (RAJAN) - Final
Nasal Swab Negative for Influenza A & B, NAAT
Negative results must be combined with clinical observations
and patient history.
Nucleic Acid Amplification test (NAAT)performed on the
[employer] platform.
Therapeutic Drug Monitoring
Random Vancomycin 19.2 ug/ml 07/29/24 06:37
--- NOTE | 2024-07-29 10:15 | W.PN.HOSP.TC ---
Today's Communication/Plan
-
start IVF
cont Abx
CT chest/abd/pelvis
Assessment / Plan
Assessment / Plan
54yo F with PMHx of traumatic brain injury s/p trach - removed and PEG brought from SNF after her PEG got dislodged. Could not be reinserted in ED, later family requested assessment for swallowing, which patient passed and started on dysphagia diet.
Monitoring for appropriate oral intake. LE pain improving on Gabapentin. As per - they want to look for alternative SNF - CM aware. Multiple referrals sent, but due to complex Hx - still no acceptance
Meanwhile developed new fever on 07/27/24
A/P:
#Fever most likely 2/2 UTI
started on 07/27/24
Bcx NTD
Chest XR without acute pneumonia
COVID-19, Influenza neg
Head CT without acute findings
Broad spectrum Abx, check MRSA PCR
CT abd/pelvis
#dysphagia
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
start diet
GI follows, if patient fails - will need PEG at new site
#Mild leukopenia
#mild chronic anemia
#Hypokalemia
#Hypernatremia
#RICKY on CKD stage 3b with RICKY on admission
2/2 poor oral intake
Cr baseline 1.7
follow CBC , BMP
#Hx of anoxic brain injury 2/2 cardiac arrest
poor judgement, frequent episodes of anxiety and agitation
Avoid BZD - causing delirium
QTc WNL - use Zyprexa PRN
Psych consult
#Vit D deficiency
supplement
#Oral thrush
Nystatin
HIV neg
#Hx of pulmonary embolism
on Eliquis
#hypomagnesemia
replete and follow
#DM type 2 with nephropathy
Insulin SS, DM diet, Accuchecks
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
#Essential HTN
#Anxiety/Agitation
#chronic b/l LE pain without radiculopathy
cont home meds
Neurontin helps - uptitrate PRN
DVT ppx Eliquis
Full code
I have spent at least 55min reviewing chart, test results, communication with consultants and providing direct patient care
Anticipated Discharge: > 48 hours
Subjective/Interval History
-
Date of Service: July 29, 2024
Objective Data
-
Labs:
Laboratory Results
07/29/24
06:37
WBC 3.5 L
Hgb 9.5 L
Hct 30.0 L
Plt Count 199
Sodium 138
Potassium 3.7
Chloride 105
Carbon Dioxide 29
BUN 21 H
Creatinine 2.0 H
Glucose 98
Calcium 9.7
Total Bilirubin 0.5
AST 22
ALT 19
Alkaline Phosphatase 61
Vital Signs:
Vital Signs
Temp Pulse Resp BP Pulse Ox
98.3 F 92 15 107/70 100
07/29/24 07:37 07/29/24 07:57 07/29/24 07:37 07/29/24 07:57 07/29/24 07:37
I&O
07/28/24 07/29/24 07/30/24
06:59 06:59 06:59
Intake Total 600 / 600 480 / 480
Balance 600 / 600 480 / 480
Review of Systems
-
History Source: Patient
All other systems: Reviewed and negative
Physical Exam
-
General: Comfortable
HEENT: Normocephalic
Respiratory: Rales
Neuro: Sedated
Psych: Calm
[2024-07-29] MEDS: NSS 1000 IV (11:07)
[2024-07-29] MEDS: ULTRAM 50 MG PO (11:20)
[2024-07-29] MEDS: ZYPREXA 5 MG IM (11:25)
[2024-07-29] MEDS: STERILE WATER FOR INJECTION 2.1 ML IM (11:25)
[2024-07-29 11:40] LABS: Glucose - Point of Care 148 mg/dl (70-99)
[2024-07-29] MEDS: MYCOSTATIN ORAL SUSPENSION PO ×2 (13:00→15:00)
[2024-07-29 15:06] VITALS: BP 132/75
[2024-07-29 16:25] LABS: Glucose - Point of Care 126 mg/dl (70-99)
--- NOTE | 2024-07-29 17:17 | W.PN.UPDATE ---
Update Note
Progress Note Update
54 y/o woman who had cardiac arrest with anoxic injury in June. Seen yesterday for consult and started on risperidone 0.25 mg BID for agitation and apparent emotional distress. Today she was given Zyprexa 5 [address] of the
abdomen/pelvis for W/U of fever. Fever respolved and is on antibiotic.
Today she is more engageable and somewhat calmer, although still calling out. Disoriented. Memory impaired (e.g. where her sons went to school), although she told us she has two sons which she could not do yesterday. Is still in soft restraints
due to trying to disrobe and leave the bed. Enjoying eating. Not overly sedated and no signs of EPS.
and other family came to visit and I had the opportunity to talk to him and explain the medication addition. Apparently she works for [employer].
Looking for a new SNF placement.
Psychiatry will follow.
[2024-07-29] MEDS: TYLENOL 650 MG PO (20:18)
[2024-07-29] MEDS: MELATONIN 5 MG PO (23:01)
[2024-07-29] MEDS: LANTUS 0.04 UNITS SC (23:04)
[2024-07-29 23:05] LABS: Glucose - Point of Care 150 mg/dl (70-99)
[2024-07-29 23:18] VITALS: BP 129/69
[2024-07-30] MEDS: ZOSYN 50 IV ×3 (05:14→17:20)
[2024-07-30] MEDS: NSS 1000 IV ×2 (05:15→22:01)
[2024-07-30 07:41] VITALS: BP 137/71
[2024-07-30 07:45] LABS: Glucose - Point of Care 97 mg/dl (70-99)
[2024-07-30] MEDS: NOVOLOG FLEXPEN-MODERATE RESISTANCE SC ×2 (07:49→16:49)
[2024-07-30] MEDS: MYCOSTATIN ORAL SUSPENSION 5 ML PO ×4 (08:15→22:38)
[2024-07-30] MEDS: RISPERDAL 0.25 MG PO ×2 (08:15→20:17)
[2024-07-30] MEDS: DEPAKOTE SPRINKLE 250 MG PO ×2 (08:16→16:43)
[2024-07-30] MEDS: THERAGRAN 1 TABLET PO (08:16)
[2024-07-30] MEDS: NEURONTIN 200 MG PO ×3 (08:16→22:38)
[2024-07-30] MEDS: ELIQUIS 5 MG PO ×2 (08:16→20:17)
[2024-07-30] MEDS: MIRALAX 17 GRAMS PO (08:16)
[2024-07-30] MEDS: KEPPRA 500 MG PO ×2 (08:16→20:17)
[2024-07-30] MEDS: NORVASC 2.5 MG PO (08:16)
[2024-07-30] MEDS: SENOKOT-S 1 TABLET PO (08:16)
[2024-07-30] MEDS: COREG 6.25 MG PO ×2 (08:17→20:18)
[2024-07-30] MEDS: LIDOCAINE 4% PATCH 2 PATCH TOPICAL (08:17)
[2024-07-30 10:08] LABS: Venous Blood Gas B.E. 3.5 mmol/L (-4 to +4); Venous Blood Gas HCO3 29.5 mmol/L (22-27); Venous Blood Gas O2 Sat % 70.2 %; Venous Blood Gas pCO2 51 mmHg (35-48); Venous Blood Gas pH 7.37 (7.32-7.43); Venous Blood Gas pO2 43 mmHg (30-50)
[2024-07-30 10:09] LABS: Venous Blood Gas O2 Therapy RA
--- NOTE | 2024-07-30 10:12 | W.PN.HOSP.TC ---
Addendum entered and electronically signed by Hussein Marroquin MD 07/30/24 10:19:
#RETA with hypercarbia
BiPAP at HS
Original Note:
Today's Communication/Plan
-
pending Ucx
Assessment / Plan
Assessment / Plan
54yo F with PMHx of traumatic brain injury s/p trach - removed and PEG brought from SNF after her PEG got dislodged. Could not be reinserted in ED, later family requested assessment for swallowing, which patient passed and started on dysphagia diet.
Monitoring for appropriate oral intake. LE pain improving on Gabapentin. As per - they want to look for alternative SNF - CM aware. Multiple referrals sent, but due to complex Hx - still no acceptance
Meanwhile developed new fever on 07/27/24
A/P:
#Fever most likely 2/2 UTI
started on 07/27/24
Bcx NTD
Ucx: enterococcus
Chest XR without acute pneumonia
COVID-19, Influenza neg
Head CT without acute findings
Broad spectrum Abx, check MRSA PCR
CT abd/pelvis withuyt hydronephrosis or nephrolithiasis, but signs of cystitis
#dysphagia
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
start diet
GI follows, if patient fails - will need PEG at new site
#Mild leukopenia
#mild chronic anemia
#Hypokalemia
#Hypernatremia
#RICKY on CKD stage 3b with RICKY on admission
2/2 poor oral intake
Cr baseline 1.7
follow CBC , BMP
#Hx of anoxic brain injury 2/2 cardiac arrest
poor judgement, frequent episodes of anxiety and agitation
Avoid BZD - causing delirium
QTc WNL - use Zyprexa PRN
Psych consult
#Vit D deficiency
supplement
#Oral thrush
Nystatin
HIV neg
#Hx of pulmonary embolism
on Eliquis
#hypomagnesemia
replete and follow
#DM type 2 with nephropathy
Insulin SS, DM diet, Accuchecks
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
#Essential HTN
#Anxiety/Agitation
#chronic b/l LE pain without radiculopathy
cont home meds
Neurontin helps - uptitrate PRN
DVT ppx Eliquis
Full code
I have spent at least 55min reviewing chart, test results, communication with consultants and providing direct patient care
Anticipated Discharge: > 48 hours
Subjective/Interval History
-
Date of Service: July 30, 2024
Objective Data
-
Labs:
Laboratory Results
07/30/24
09:55
WBC Pending
Hgb Pending
Hct Pending
Plt Count Pending
Sodium Pending
Potassium Pending
Chloride Pending
Carbon Dioxide Pending
BUN Pending
Creatinine Pending
Glucose Pending
Calcium Pending
Total Bilirubin Pending
AST Pending
ALT Pending
Alkaline Phosphatase Pending
Vital Signs:
Vital Signs
Temp Pulse Resp BP Pulse Ox
97.9 F 105 22 137/71 100
07/30/24 07:41 07/30/24 07:41 07/30/24 07:41 07/30/24 07:41 07/30/24 08:00
I&O
07/29/24 07/30/24 07/31/24
06:59 06:59 06:59
Intake Total 480 / 480 1340 / 1340
Balance 480 / 480 1340 / 1340
Review of Systems
-
History Source: Patient
All other systems: Reviewed and negative
Physical Exam
-
General: No Apparent Distress
HEENT: Normocephalic
Cardiac: Regular Rhythm
GI: Soft
Neuro: Awake, Alert, Oriented and AO x 3
Psych: Calm
[2024-07-30 10:16] LABS: Hematocrit 29.2 % (37.0-47.0); Hemoglobin 9.3 g/dL (12.0-16.0); Mean Corp Hgb Conc. 31.8 g/dL (33.0-37.0); Mean Corpuscular Hgb 27.4 pg (27.0-31.0); Mean Corpuscular Volume 86.1 fL (81.0-99.0); Mean Platelet Volume 9.1 fL (7.4-10.4); Platelet Count 208 10^3/uL (130-400); Red Blood Cell Count 3.39 10^6/uL (4.20-5.40); Red Cell Dist. Width 13.9 % (11.5-14.5); White Blood Cell Count 3.3 10^3/uL (4.8-10.8)
[2024-07-30 10:25] LABS: ALT (SGPT) 15 U/L (0-35); AST (SGOT) 16 U/L (14-36); Albumin 2.9 g/dl (3.5-5.0); Alkaline Phosphatase 58 U/L (38-126); Blood Urea Nitrogen 18 mg/dl (7-17); Calcium 9.3 mg/dl (8.4-10.2); Carbon Dioxide 30 mmol/L (22-30); Estimated Creatinine Clearance 35 ml/min; Glucose 99 mg/dl (70-99); Potassium 3.5 mmol/L (3.5-5.1); Sodium 140 mmol/L (135-145); Total Bilirubin 0.4 mg/dl (0.2-1.3); Total Protein 5.8 g/dl (6.3-8.2)
[2024-07-30 10:27] LABS: Vancomycin Random 10.5 ug/ml
[2024-07-30 10:45] LABS: Anisocytosis Slight; Band Neutrophils 0 % (0-3); Eosinophils 6 % (0-6); Lymphocytes 52 % (20-51); Monocytes 10 % (2-9); Normal RBC Morphology No; Platelets Checked Yes; Segmented Neutrophils 32 % (42-75); Total Cells Counted 100
[2024-07-30 11:41] LABS: Chloride 106 mmol/L (98-107)
[2024-07-30 12:07] LABS: Glucose - Point of Care 161 mg/dl (70-99)
--- NOTE | 2024-07-30 12:30 | PTCARENOTE ---
MD and CM in to see patient. Per CM, patient will need to be off of restraints for 24 hours prior to discharge to potential facility. Restraints removed at 1200. Pt restless but redirectable at this time. Plan of care ongoing.
--- NOTE | 2024-07-30 12:48 | PHA.VAN.FU ---
Vancomycin Assessment / Plan
- Assessment
Renal Function: Stable
Concomitant Antimicrobials: piperacillin/tazobactam
- Assessment - Therapeutic Drug Monitoring
Random Level: 10.5 - drawn ~27H after previous level of 19.2
Calculated ke: 0.0221
Calculated half life (H): 31
- Dosing Plan
Dosing by Level: Re-dose today (Vanc 1000mg)
- Monitoring Plan
Random Level: 07/31 06
- Follow Up
Pharmacy will continue to follow.
Vancomycin Follow UP
- -
Patient Age: 54
Patient Sex: Female
Vancomycin Day #: 3
Indication: Other
Requesting Provider: Dr. Marroquin
Pertinent Antimicrobial Allergies:
no pertinent antibiotic allergies
Height / Weight:
Height 5 ft 5 in
Actual Weight 82.724 kg
IBW in k
Pertinent Past Medical History: BMI ~30, CKD (baseline ~1.7), DM 2
- Vital Signs / Lab Results
Temp Pulse Resp BP Pulse Ox
97.9 F 105 22 137/71 100
07/30/24 07:41 07/30/24 07:41 07/30/24 07:41 07/30/24 07:41 07/30/24 08:00
Lab Results - Hematology
07/27/24 07/27/24 07/28/24
06:00 17:55 06:55
WBC Cancelled 5.5 4.7 L
Band Neutrophils
07/29/24 07/30/24
06:37 09:55
WBC 3.5 L 3.3 L
Band Neutrophils 0
Lab Results - Chemistry
07/28/24 07/29/24 07/30/24
06:23 06:37 09:55
BUN 15 21 H 18 H
Creatinine 1.7 H 2.0 H 2.0 H
Estimated Creat Clear 41 35 35
Albumin 3.0 L 2.8 L 2.9 L
Microbiology Results
07/28/24 11:16 Urine Culture - Preliminary
Urine Enterococcus species
07/28/24 17:33 MRSA Screen - Final
Nose No Methicillin Resistant Staphylococcus aureus isolated.
07/28/24 06:25 Blood Culture - Preliminary
Blood/Venous No Growth in 48 hours- Final report to follow
07/28/24 06:25 Blood Culture - Preliminary
Blood/Venous No Growth in 48 hours- Final report to follow
Therapeutic Drug Monitoring
Random Vancomycin 10.5 ug/ml 07/30/24 09:55
[2024-07-30] MEDS: NOVOLOG FLEXPEN-MODERATE RESISTANCE 1 UNITS SC (12:51)
[2024-07-30] MEDS: VANCOCIN 200 IV (13:36)
--- NOTE | 2024-07-30 13:57 | W.PN.UPDATE ---
Update Note
Progress Note Update
Pt seen resting in bed, mildly sleepy/slowed. Calm, answering questions, states she feels okay. No EPS evident. Reviewed with nursing staff; pt doing better, restraints are off today.
Imp: Hx of anoxic brain injury, with intermittent agitation, improving today
Rec: continue current psychotropic medications
will follow
--- NOTE | 2024-07-30 14:20 | CM ---
CM reviewed chart, reviewed with Nurse and Hospitalist, restraints removed today. Update to Schrebier, Admissions at [facility]- confirming ability to accept patient 24/48 hrs off restraints. Patient will require insurance auth for SNF. Patients
spouse, Don, updated. CM will continue to follow for all discharge planning needs.
Plan; [facility], need to be off restraints 24/48 hrs before acceptance, auth required.
[2024-07-30 14:42] VITALS: BP 131/71; PULSE 95; O2SAT 99
[2024-07-30] MEDS: ULTRAM 50 MG PO (14:50)
[2024-07-30 15:27] VITALS: BP 117/80
[2024-07-30 16:48] LABS: Glucose - Point of Care 141 mg/dl (70-99)
[2024-07-30] MEDS: SENOKOT-S PO (20:18)
[2024-07-30 20:27] VITALS: BP 126/78
[2024-07-30 22:36] LABS: Glucose - Point of Care 131 mg/dl (70-99)
[2024-07-30] MEDS: MELATONIN 5 MG PO (22:38)
[2024-07-30] MEDS: LANTUS 0.04 UNITS SC (22:39)
[2024-07-30 23:12] VITALS: BP 132/80
[2024-07-31] MEDS: DEPAKOTE SPRINKLE 250 MG PO ×4 (00:04→23:20)
[2024-07-31] MEDS: ZOSYN 50 IV ×2 (00:05→05:40)
[2024-07-31] MEDS: ULTRAM 50 MG PO ×3 (01:23→18:06)
[2024-07-31 07:31] LABS: Glucose - Point of Care 96 mg/dl (70-99)
[2024-07-31 07:40] VITALS: BP 145/96
[2024-07-31 08:20] LABS: Hematocrit 27.8 % (37.0-47.0); Hemoglobin 8.8 g/dL (12.0-16.0); Mean Corp Hgb Conc. 31.7 g/dL (33.0-37.0); Mean Corpuscular Hgb 27.2 pg (27.0-31.0); Mean Corpuscular Volume 85.8 fL (81.0-99.0); Mean Platelet Volume 9.4 fL (7.4-10.4); Platelet Count 211 10^3/uL (130-400); Red Blood Cell Count 3.24 10^6/uL (4.20-5.40); Red Cell Dist. Width 13.7 % (11.5-14.5); White Blood Cell Count 3.3 10^3/uL (4.8-10.8)
[2024-07-31 08:36] LABS: Vancomycin Random 15.1 ug/ml
[2024-07-31] MEDS: NOVOLOG FLEXPEN-MODERATE RESISTANCE SC ×2 (08:52→12:40)
[2024-07-31] MEDS: SENOKOT-S PO ×2 (09:58→21:07)
[2024-07-31] MEDS: MIRALAX PO (09:58)
--- NOTE | 2024-07-31 10:00 | W.PN.HOSP.TC ---
Today's Communication/Plan
-
pending Ucx results
Assessment / Plan
Assessment / Plan
54yo F with PMHx of traumatic brain injury s/p trach - removed and PEG brought from SNF after her PEG got dislodged. Could not be reinserted in ED, later family requested assessment for swallowing, which patient passed and started on dysphagia diet.
Monitoring for appropriate oral intake. LE pain improving on Gabapentin. As per - they want to look for alternative SNF - CM aware. Multiple referrals sent, but due to complex Hx - still no acceptance
Meanwhile developed new fever on 07/27/24
A/P:
#Fever most likely 2/2 UTI
started on 07/27/24
Bcx NTD
Ucx: enterococcus
Chest XR without acute pneumonia
COVID-19, Influenza neg
Head CT without acute findings
Broad spectrum Abx, check MRSA PCR
CT abd/pelvis withuyt hydronephrosis or nephrolithiasis, but signs of cystitis
#dysphagia
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
start diet
GI follows, if patient fails - will need PEG at new site
#Mild leukopenia
#mild chronic anemia
recurrent, possibly 2/2 UTI
outpatient CBC and if persistent - hematology referral
#Hypokalemia
#Hypernatremia
#RICKY on CKD stage 3b with RICKY on admission
2/2 poor oral intake
Cr baseline 1.7
follow CBC , BMP
#Hx of anoxic brain injury 2/2 cardiac arrest
poor judgement, frequent episodes of anxiety and agitation
Avoid BZD - causing delirium
QTc WNL - use Zyprexa PRN
Psych consult
#Vit D deficiency
supplement
#Oral thrush
Nystatin
HIV neg
#Hx of pulmonary embolism
on Eliquis
#hypomagnesemia
replete and follow
#DM type 2 with nephropathy
Insulin SS, DM diet, Accuchecks
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
#Essential HTN
#Anxiety/Agitation
#chronic b/l LE pain without radiculopathy
cont home meds
Neurontin helps - uptitrate PRN
DVT ppx Eliquis
Full code
I have spent at least 35min reviewing chart, test results, communication with consultants and providing direct patient care
Anticipated Discharge: Within 24 hours
Subjective/Interval History
-
Date of Service: July 31, 2024
Objective Data
-
Labs:
Laboratory Results
07/31/24
07:35
WBC 3.3 L
Hgb 8.8 L
Hct 27.8 L
Plt Count 211
Vital Signs:
Vital Signs
Temp Pulse Resp BP Pulse Ox
98.4 F 89 20 145/96 100
07/31/24 07:40 07/31/24 07:40 07/31/24 07:40 07/31/24 07:40 07/31/24 07:40
I&O
07/30/24 07/31/24 08/01/24
06:59 06:59 06:59
Intake Total 1340 / 1340 2079
Balance 1340 / 1340 2079
Review of Systems
-
History Source: Patient
All other systems: Reviewed and negative
Physical Exam
-
General: No Apparent Distress
HEENT: Normocephalic
Cardiac: Regular Rhythm
GI: Soft, Nontender and Nondistended
Neuro: Awake, Alert, Oriented and AO x 3
Psych: Calm and Apparent Dementia
[2024-07-31] MEDS: LIDOCAINE 4% PATCH 2 PATCH TOPICAL (10:11)
[2024-07-31] MEDS: THERAGRAN 1 TABLET PO (10:11)
[2024-07-31] MEDS: NEURONTIN 200 MG PO ×3 (10:13→22:20)
[2024-07-31] MEDS: ELIQUIS 5 MG PO ×2 (10:13→21:05)
[2024-07-31] MEDS: KEPPRA 500 MG PO ×2 (10:13→21:06)
[2024-07-31] MEDS: COREG 6.25 MG PO ×2 (10:14→21:05)
[2024-07-31] MEDS: MYCOSTATIN ORAL SUSPENSION 5 ML PO ×4 (10:14→22:21)
[2024-07-31] MEDS: RISPERDAL 0.25 MG PO ×2 (10:19→21:07)
[2024-07-31] MEDS: NORVASC 2.5 MG PO (10:19)
--- NOTE | 2024-07-31 11:20 | W.PN.UPDATE ---
Update Note
Progress Note Update
Patient seen at bedside during AM care, chart reviewed, discussed with staff. Ms. Santos offers no complaints. She is calm and cooperative. Staff reports she can be restless at times, will call out and will try and get out of bed. Has been off of
restraints. Efforts continue for SNF placement.
Impression/Recommendation: History of anoxic brain injury, with intermittent agitation - improving on low dose Risperdal, to continue.
[2024-07-31 11:55] VITALS: BP 138/68
[2024-07-31 12:21] LABS: Glucose - Point of Care 122 mg/dl (70-99)
[2024-07-31] MEDS: MONUROL 3 GM PO (13:13)
[2024-07-31] MEDS: ZOSYN IV (13:55)
[2024-07-31 15:37] VITALS: BP 115/74
[2024-07-31 16:57] LABS: Glucose - Point of Care 151 mg/dl (70-99)
[2024-07-31] MEDS: NOVOLOG FLEXPEN-MODERATE RESISTANCE 1 UNITS SC (17:59)
[2024-07-31] MEDS: TYLENOL 650 MG PO (21:09)
[2024-07-31 21:14] LABS: Glucose - Point of Care 131 mg/dl (70-99)
[2024-07-31] MEDS: MELATONIN 5 MG PO (22:20)
[2024-07-31] MEDS: LANTUS 0.04 UNITS SC (22:20)
[2024-07-31 23:08] VITALS: BP 133/76
[2024-08-01] MEDS: ULTRAM 50 MG PO ×2 (02:06→16:02)
[2024-08-01] MEDS: TYLENOL 650 MG PO ×2 (05:21→19:24)
[2024-08-01 07:27] VITALS: BP 129/77
[2024-08-01 07:41] LABS: Glucose - Point of Care 102 mg/dl (70-99)
[2024-08-01] MEDS: NOVOLOG FLEXPEN-MODERATE RESISTANCE SC ×3 (07:58→17:09)
[2024-08-01] MEDS: MYCOSTATIN ORAL SUSPENSION 5 ML PO ×3 (08:05→17:46)
[2024-08-01] MEDS: NEURONTIN 200 MG PO ×3 (08:05→22:07)
[2024-08-01] MEDS: MIRALAX PO (08:05)
[2024-08-01] MEDS: THERAGRAN 1 TABLET PO (08:05)
[2024-08-01] MEDS: DEPAKOTE SPRINKLE 250 MG PO ×3 (08:05→23:00)
[2024-08-01] MEDS: RISPERDAL 0.25 MG PO ×2 (08:05→19:24)
[2024-08-01] MEDS: SENOKOT-S 1 TABLET PO (08:05)
[2024-08-01] MEDS: LIDOCAINE 4% PATCH 2 PATCH TOPICAL (08:06)
[2024-08-01] MEDS: ELIQUIS 5 MG PO ×2 (08:06→19:24)
[2024-08-01] MEDS: KEPPRA 500 MG PO ×2 (08:06→19:24)
[2024-08-01] MEDS: COREG 6.25 MG PO ×2 (08:10→19:24)
[2024-08-01] MEDS: NORVASC 2.5 MG PO (08:10)
[2024-08-01 10:32] LABS: Hemoglobin 8.9 g/dL (12.0-16.0); Mean Corpuscular Hgb 27.6 pg (27.0-31.0); Mean Corpuscular Volume 83.6 fL (81.0-99.0); Mean Platelet Volume 8.9 fL (7.4-10.4); Platelet Count 221 10^3/uL (130-400); Red Blood Cell Count 3.23 10^6/uL (4.20-5.40); Red Cell Dist. Width 13.5 % (11.5-14.5); White Blood Cell Count 3.2 10^3/uL (4.8-10.8)
--- NOTE | 2024-08-01 10:54 | W.PN.HOSP.TC ---
Addendum entered and electronically signed by Hussein Marroquin MD 08/01/24 11:32:
good bilateral dorsalis pedis pulses
Original Note:
Today's Communication/Plan
-
pending d/c
Assessment / Plan
Assessment / Plan
54yo F with PMHx of traumatic brain injury s/p trach - removed and PEG brought from SNF after her PEG got dislodged. Could not be reinserted in ED, later family requested assessment for swallowing, which patient passed and started on dysphagia diet.
Monitoring for appropriate oral intake. LE pain improving on Gabapentin. As per - they want to look for alternative SNF - CM aware. Multiple referrals sent, but due to complex Hx - still no acceptance
Meanwhile developed new fever on 07/27/24
A/P:
#Fever most likely 2/2 UTI
started on 07/27/24
Bcx NTD
Ucx: enterococcus
Chest XR without acute pneumonia
COVID-19, Influenza neg
Head CT without acute findings
Broad spectrum Abx, check MRSA PCR
CT abd/pelvis withuyt hydronephrosis or nephrolithiasis, but signs of cystitis
#dysphagia
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
start diet
GI follows, if patient fails - will need PEG at new site
#Mild leukopenia
#mild chronic anemia
recurrent, possibly 2/2 UTI
outpatient CBC and if persistent - hematology referral
#Hypokalemia
#Hypernatremia
#RICKY on CKD stage 3b with RICKY on admission
2/2 poor oral intake
Cr baseline 1.7
follow CBC , BMP
#Hx of anoxic brain injury 2/2 cardiac arrest
poor judgement, frequent episodes of anxiety and agitation
Avoid BZD - causing delirium
QTc WNL - use Zyprexa PRN
Psych consult
#Vit D deficiency
supplement
#Oral thrush
Nystatin
HIV neg
#Hx of pulmonary embolism
on Eliquis
#hypomagnesemia
replete and follow
#DM type 2 with nephropathy
Insulin SS, DM diet, Accuchecks
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
#Essential HTN
#Anxiety/Agitation
#chronic b/l LE pain without radiculopathy
cont home meds
Neurontin helps - uptitrate PRN
DVT ppx Eliquis
Full code
I have spent at least 35min reviewing chart, test results, communication with consultants and providing direct patient care
Anticipated Discharge: 24 - 48 hours
Subjective/Interval History
-
Date of Service: August 01, 2024
Objective Data
-
Labs:
Laboratory Results
08/01/24
09:28
WBC 3.2 L
Hgb 8.9 L
Hct 27.0 L
Plt Count 221
Vital Signs:
Vital Signs
Temp Pulse Resp BP Pulse Ox
98.2 F 90 18 129/77 99
08/01/24 07:27 08/01/24 07:27 08/01/24 07:27 08/01/24 07:27 08/01/24 08:00
I&O
07/31/24 08/01/24 08/02/24
06:59 06:59 06:59
Intake Total 2079
Balance 2079
Review of Systems
-
History Source: Patient
All other systems: Reviewed and negative
Physical Exam
-
General: Comfortable
HEENT: Normocephalic
GI: Soft, Nontender and Nondistended
Skin: Warm
Neuro: Awake, Alert, Oriented and AO x 3
Psych: Calm
[2024-08-01 11:44] LABS: Glucose - Point of Care 141 mg/dl (70-99)
[2024-08-01 13:13] LABS: % Basophils 0.6 % (0-2); % Eosinophils 3.1 % (0-6); % Lymphocytes 66.4 % (20.5-51.1); % Monocytes 8.4 % (1.7-9.3); % Neutrophils 21.5 % (42.2-75.2); Absolute Eosinophils 0.1 10^3/uL (0-0.7); Absolute Lymphocytes 2.1 10^3/uL (1.2-3.4); Absolute Monocytes 0.3 10^3/uL (0.1-0.6); Absolute Neutrophils 0.7 10^3/uL (1.4-6.5); Nucleated Red Blood Cells % 0 %
--- NOTE | 2024-08-01 13:38 | W.PN.UPDATE ---
Update Note
Progress Note Update
patient seen chart reviewed. discussed w nursing. at bedside. from what i have read in the chart and seen today patient does seem to be improving. patient was living at [facility] in the aftermath of an anoxic brain injury suffered during a
cardiac arrest this winter. she pulled out her feeding tube and tracheostomy and was sent to given her intermittent agitation. she has since settled down with the addition of risperdal o.25 mg bid (she also had one olanzapine 5 mg prn im since
coming to ). at this point it appears she does not need trach and feeding tube. she was eating when i saw her and said the 'portions are small'. the patient was conversant. told me she had two sons and their ages and that her had a child
who lived in [place]. she also told me about the panda in her room and that she and collect pandas as a symbol of their devotion to each other. then told me how mrs neri supported through his mota with mutliple myeloma.. he has had
a bone marrow and was to have another given a relapse which he said miraculously disappeared. He also battles MS. no changes were made in medications. nursing tells me occasionally mrs neri will 'cry out' but it sounds as though she is
cooperative and my interaction w her was good. does NOT want her to return to [place].
[2024-08-01 15:50] VITALS: BP 147/86
[2024-08-01 17:07] LABS: Glucose - Point of Care 112 mg/dl (70-99)
[2024-08-01] MEDS: SENOKOT-S PO (19:25)
[2024-08-01] MEDS: MELATONIN 5 MG PO (22:07)
[2024-08-01] MEDS: LANTUS 0.04 UNITS SC (22:09)
[2024-08-01 22:11] LABS: Glucose - Point of Care 124 mg/dl (70-99)
[2024-08-02] MEDS: ULTRAM 50 MG PO (00:08)
[2024-08-02 00:14] VITALS: BP 120/73
[2024-08-02 07:17] VITALS: BP 129/71
[2024-08-02 07:43] LABS: Glucose - Point of Care 102 mg/dl (70-99)
[2024-08-02] MEDS: NOVOLOG FLEXPEN-MODERATE RESISTANCE SC ×3 (07:47→17:09)
[2024-08-02] MEDS: THERAGRAN 1 TABLET PO (07:55)
[2024-08-02] MEDS: NEURONTIN 200 MG PO ×3 (07:55→22:00)
[2024-08-02] MEDS: KEPPRA 500 MG PO ×2 (07:55→19:57)
[2024-08-02] MEDS: RISPERDAL 0.25 MG PO ×2 (07:56→19:57)
[2024-08-02] MEDS: COREG 6.25 MG PO ×2 (07:56→19:57)
[2024-08-02] MEDS: SENOKOT-S PO (07:56)
[2024-08-02] MEDS: DEPAKOTE SPRINKLE 250 MG PO ×3 (07:56→23:13)
[2024-08-02] MEDS: MIRALAX PO (07:56)
[2024-08-02] MEDS: ELIQUIS 5 MG PO ×2 (07:56→19:57)
[2024-08-02] MEDS: NORVASC 2.5 MG PO (07:56)
[2024-08-02] MEDS: LIDOCAINE 4% PATCH 2 PATCH TOPICAL (07:56)
--- NOTE | 2024-08-02 10:14 | CON.ONC ---
Impression
Impression
54 yo Female
Leukopenia
Neutropenia
Anemia
Plan
Plan
#Leukopenia
#Neutropenia
- Likely secondary to infection with UTI vs. drug related as Depakote and Levetiracetam can cause aplastic anemia. Afebrile and not septic at this time, no role for GCSF.
- Would recommend weekly CBCs after discharge with follow up with hematology as OP. If leukopenia/neutropenia does not resolve on outpatient labs, will consider further workup.
#Anemia
- Persistent anemia during admission with Hgb 8.9-11.2. Hgb was 8.3 back in May of 2024. MCV 83.8.
- No iron studies available this admission, however she seems to have chronic anemia prior to admission. 06/07/24 Ferritin was 906 H, Iron 75, TIBC 203 L, Saturation 36%. Likely ACD with possible component of CKD.
- Will follow with out patient CBCs and do further workup as outpatient if necessary.
Patient History
History of Present Illness
54 year old female with a past medical history of recent PE/Cardiac arrest with Anoxic brain injury, CVA in 03/2024, s/p tracheostomy & PEG tube (both since removed) CKD (formerly on Hemodialysis w/ catheter removed on 07/17/24), T2DM on insulin,
hypertension who was admitted initially for pulling out PEG tube while in recovery at [facility]. She has since had both her Tracheostomy and PEG tube removed and she was cleared by Speech for OP intake. Throughout her stay she has been leukopenic,
felt to be secondary to UTI. She has also had intermittent afebrile neutropenia with ANC counts between 700-1000, with episodes of non-neutropenia in between. She has no prior history of neutropenia, is not on any chemotherapy, has no constitutional
symptoms, no lymph node enlargement or unexplained weight loss. There is no spontaneous bruising, bleeding.
Past-Medical/Surgical History
Past Medical History: PE, cardiac Arrest, Anoxic brain injury, CVA, CKD, IDDM, hypertension, h/o GI Bleed, Anxiety
Past Surgical History: Tracheostomy, PEG Tube placement, Dialysis catheter placement
Patient Medication
�Medication �Instructions �Recorded �Confirmed �Last Taken �Type
bisacodyl 10 mg rectal suppository 10 mg NV DAILYPRN PRN constipation 06/07/24 07/19/24 Unknown History
divalproex 125 mg capsule,delayed 250 mg PO Q8H Mental Health/Anxiety 06/07/24 07/19/24 Unknown History
release sprinkle (Depakote
Sprinkles)
insulin glargine 100 unit/mL 8 unit SC HS Diabetes 06/07/24 07/19/24 Unknown History
subcutaneous solution
levetiracetam 500 mg tablet 500 mg PO BID Mental Health/Anxiety 06/08/24 07/19/24 Unknown History
(Keppra)
mupirocin calcium 2 % topical cream 1 applic topical DAILY groin wound 06/08/24 07/19/24 Unknown History
ipratropium 0.5 mg-albuterol 3 mg 3 ml inhalation R [id number] PRN sob 07/11/24 07/19/24 Unknown History
(2.5 mg base)/3 mL nebulization
soln
apixaban 5 mg tablet 5 mg PO BID Blood Clot 07/21/24 07/19/24 Unknown Rx
Prevention/Tx #0 tabs
carvedilol 6.25 mg tablet 6.25 mg PO BID Blood Pressure #0 07/21/24 07/19/24 Unknown Rx
tabs
ergocalciferol (vitamin D2) 1,250 50,000 unit PO Q7D 6 weeks #6 caps 07/21/24 Unknown Rx
mcg (50,000 unit) capsule
fexofenadine 60 mg tablet 60 mg PO Q6HPRN PRN allergies #0 07/21/24 07/19/24 Unknown Rx
tabs
hydralazine 10 mg tablet 10 mg PO TID Blood Pressure #0 tabs 07/21/24 07/19/24 Unknown Rx
hydroxyzine HCl 10 mg/5 mL oral 20 mg (10 mL) PO QID #0 mL 07/21/24 07/19/24 Unknown Rx
solution
lorazepam 1 mg tablet 1 mg PO Q6HPRN PRN anxiety #0 tabs 07/21/24 07/19/24 Unknown Rx
tramadol 50 mg tablet 50 mg PO TIDPRN PRN severe pain #0 07/21/24 07/19/24 Unknown Rx
tabs
trazodone 50 mg tablet 25 mg (1/2 x 50 mg) PO HS Sleep #0 07/21/24 07/19/24 Unknown Rx
tabs
acetaminophen 325 mg tablet 650 mg (2 x 325 mg) PO Q4HPRN PRN 07/31/24 Unknown Rx
mild pain/ fever>100.5F #90 tabs
amlodipine 2.5 mg tablet 2.5 mg PO DAILY #30 tabs 07/31/24 Unknown Rx
gabapentin 100 mg capsule 200 mg (2 x 100 mg) PO TID #90 caps 07/31/24 Unknown Rx
multivitamin with folic acid 400 1 tab PO DAILY #30 tabs 07/31/24 Unknown Rx
mcg tablet (Tab-A-Mark)
risperidone 0.25 mg tablet 0.25 mg PO BID #60 tabs 07/31/24 Unknown Rx
Active Medications
Generic Name Dose Route Start Last Admin
Trade Name Freq PRN Reason Stop Dose Admin
Acetaminophen 650 mg 07/19/24 19:36 08/01/24 19:24
Acetaminophen 325 Mg Tablet PO 08/16/24 19:35 650 mg
Q4HPRN PRN Administration
mild pain/ fever>100.5F
Amlodipine Besylate 2.5 mg 07/28/24 08:00 08/02/24 07:56
Amlodipine 2.5 Mg Tablet PO 08/25/24 07:59 2.5 mg
DAILY FRITZ Administration
Apixaban 5 mg 07/20/24 20:00 08/02/24 07:56
Apixaban (Eliquis) 5 Mg Tablet PO 08/17/24 19:59 5 mg
BID FRITZ Administration
Carvedilol 6.25 mg 07/20/24 20:00 08/02/24 07:56
Carvedilol 6.25 Mg Tablet PO 08/17/24 19:59 6.25 mg
BID FRITZ Administration
Dextrose 12.5 grams 07/19/24 19:36
Dextrose 50% (0.5 Grams/Ml) 50 Ml Syringe IV 08/16/24 19:35
[id number] PRN
hypoglycemia
Protocol
Divalproex Sodium 250 mg 07/21/24 00:00 08/02/24 07:56
Divalproex Sodium 125 Mg Sprinkle Capsule PO 08/18/24 00:00 250 mg
Q8 FRITZ Administration
Ergocalciferol 50,000 units 07/21/24 08:00 07/28/24 08:28
Ergocalciferol (Vitamin D-2) 61232 Units Capsule PO 08/18/24 07:59 Not Given
Q7D FRITZ
Gabapentin 200 mg 07/26/24 10:03 08/02/24 07:55
Gabapentin 100 Mg Capsule PO 08/20/24 15:59 200 mg
TID FRITZ Administration
Glucagon 1 mg 07/19/24 19:36
Glucagon 1 Mg Vial IM 08/16/24 19:35
PRN PRN
hypoglycemia
Protocol
Hydralazine HCl 5 mg 07/19/24 19:36
Hydralazine 20 Mg/Ml Vial IV 08/16/24 19:35
Q6HPRN PRN
SBP>160 or DBP>90
Insulin Glargine 4 units/ 0.04 mls @ 0 mls/hr 07/19/24 22:00 08/01/24 22:09
Device SC 08/16/24 21:59 0.04 mls
HS FRITZ Administration
As Directed
Insulin Aspart 0 units 07/20/24 07:30 08/02/24 07:47
Insulin Aspart Moderate Resistance 300 Units/3 Ml Pen.Injctr SC 08/17/24 07:29 Not Given
AC FRITZ
Protocol
Levetiracetam 500 mg 07/20/24 20:00 08/02/24 07:55
Levetiracetam 500 Mg Regular Release Tablet PO 08/17/24 19:59 500 mg
BID FRITZ Administration
Lidocaine 2 patch 07/20/24 08:00 08/02/24 07:56
Lidocaine 4% Topical Patch TOPICAL 08/17/24 07:59 2 patch
DAILY FRITZ Administration
Protocol
Melatonin 5 mg 07/20/24 22:00 08/01/24 22:07
Melatonin 5 Mg Tablet PO 08/17/24 21:59 5 mg
HS FRITZ Administration
Multivitamins Therapeutic 1 tablet 07/24/24 14:00 08/02/24 07:55
Multivitamin Tablet PO 08/21/24 13:59 1 tablet
DAILY FRITZ Administration
Patch Removal 2 patch 07/20/24 20:00 08/01/24 19:25
Remove Lidocaine Patch REMOVE 08/17/24 19:59 2 patch
DAILY@2000 FRITZ Administration
Polyethylene Glycol 17 grams 07/22/24 08:00 08/02/24 07:56
Polyethylene Glycol Powder 17 Grams Packet PO 08/19/24 07:59 Not Given
DAILY FRITZ
Risperidone 0.25 mg 07/28/24 20:00 08/02/24 07:56
Risperidone 0.25 Mg Tablet PO 08/25/24 19:59 0.25 mg
BID FRITZ Administration
Senna/Docusate Sodium 1 tablet 07/21/24 20:00 08/02/24 07:56
Docusate W/Senna (Jenna-Colace) Tablet PO 08/18/24 19:59 Not Given
BID FRITZ
Sodium Chloride 0 flush 07/19/24 21:00
Sodium Chloride 0.9% (Flush) Syringe IV 08/16/24 20:59
PER PROTOCOL FRITZ
Sodium Chloride 0.5 ml 07/28/24 07:21
Nss (Pf) 10 Ml Vial For Ativan 1 Mg Dose IV 08/25/24 07:18
PRN PRN
IV LORAZEPAM DILUTION
Tramadol HCl 50 mg 07/23/24 09:56 08/02/24 00:08
Tramadol Hcl 50 Mg Tablet PO 08/20/24 09:55 50 mg
Q8HPRN PRN Administration
moderate-severe pain
Review of Systems
-
Unable to obtain full review of systems at this time due to: Other (Anoxic brain Injury)
History Source: Patient
Constitutional: Reports Weakness; Denies Fever, Weight Loss, Fatigue, Night Sweats or Chills
EENT: Denies Sore Throat or Runny Nose
Respiratory: Denies Cough, Hemoptysis or Trouble Breathing
Cardiac: Denies Chest Pain, Diaphoresis, Palpitations or Syncope
GI: Denies Abdominal Pain, Nausea, Vomiting, Diarrhea or Constipated
Breast: Reports No Symptoms
: Reports No Symptoms
Musculoskeletal: Reports No Symptoms
Skin: Denies Itching or Rash
Neuro: Reports Weakness; Denies Dizzy or Headache
Hematologic/Lymphatic: Denies Bleeding, Swollen Glands, Bruising or Blood Clots
Allergy / Immunology: Reports No Symptoms
Psych: Reports No Symptoms
Physical Exam
-
General: Well Developed, Well Nourished and No Apparent Distress
HEENT: Moist Mucous Membranes; Negative Jaundice
Cardiology: Normal Sinus Rhythm, S1 and S2
Pulmonary: Clear; Negative Wheezes, Rales or Rhonchi
GI: Soft and Normal Bowel Sounds; Negative Distended
Musculoskeletal: No Clubbing, No Cyanosis and No Edema
Neurology: Other (Word finding difficulty)
Skin: Warm, Dry and IV Access / Catheter Site
Hematologic / Lymphatic: No Lymphadenopathy and No Petechiae
Psych: Confused and Anxious
Labs
Lab Results
WBC 3.2 10^3/uL (4.8-10.8) L 08/01/24:
RBC 3.23 10^6/uL (4.20-5.40) L 08/01/24:
Hgb 8.9 g/dL (12.0-16.0) L 08/01/24:
Hct 27.0 % (37.0-47.0) L 08/01/24:
MCV 83.6 fL (81.0-99.0) 08/01/24:
MCH 27.6 pg (27.0-31.0) 08/01/24:
MCHC 33.0 g/dL (33.0-37.0) 08/01/24:
RDW 13.5 % (11.5-14.5) 08/01/24:
Plt Count 221 10^3/uL (130-400) 08/01/24
MPV 8.9 fL (7.4-10.4) 08/01/24:
Abs Immat Gran (auto) 0.0 10^3/uL (0-0.05) 08/01/24
Absolute Neuts (auto) 0.7 10^3/uL (1.4-6.5) L* 08/01/24:
Absolute Lymphs (auto) 2.1 10^3/uL (1.2-3.4) 08/01/24:
Absolute Monos (auto) 0.3 10^3/uL (0.1-0.6) 08/01/24:
Absolute Eos (auto) 0.1 10^3/uL (0-0.7) 08/01/24
Absolute Basos (auto) 0.0 10^3/uL (0-0.2) 08/01/24:
Immature Gran % 0.0 % (0-0.5) 08/01/24:
Neutrophils % 21.5 % (42.2-75.2) L 08/01/24 09:28
Lymphocytes % 66.4 % (20.5-51.1) H 08/01/24 09:28
Monocytes % 8.4 % (1.7-9.3) 08/01/24 09:28
Eosinophils % 3.1 % (0-6) 08/01/24 09:28
Basophils % 0.6 % (0-2) 08/01/24 09:28
Creatinine 2.0 mg/dL (0.6-1.0) H 07/30/24 09:55
Vital Signs
Vital Signs
Temp Pulse Resp BP Pulse Ox
98.3 F 79 18 129/71 100
08/02/24 07:17 08/02/24 07:17 08/02/24 07:17 08/02/24 07:17 08/02/24 08:00
--- NOTE | 2024-08-02 10:25 | W.PN.HOSP.TC ---
Addendum entered and electronically signed by Priyanka Rubio MD 08/02/24 13:04:
Addendum
I discussed urine culture and clinical status with on-call ID doctor. Since the patient has not had fevers since July 28. Visual hallucinations can be attributed to her ongoing brain injury and medications. Urinary tract infection was never
treated because antibiotics that patient received were not effective towards Enterococcus VRE. The picture is consistent with asymptomatic bacteriuria, recommend against antibiotics. Appreciate ID help.
End
Original Note:
Today's Communication/Plan
-
Start the patient on doxycycline.
Will follow-up for further management
Assessment / Plan
Assessment / Plan
Physical Exam
General: Comfortable and Conversant
HEENT: Anicteric, Moist mucous membranes
Respiratory: Clear and Non Labored Respirations
Cardiac: S1/S2
GI: Soft, Non Tender
Rectal: No bleeding
Musculoskeletal: No Clubbing, No Cyanosis and No Edema
Skin: Warm and Dry
Neuro: Awake, Alert and oriented to self and surroundings. She followed simple commands.
Psych: Calm, no agitation.
54yo F with PMHx of traumatic brain injury s/p trach - removed and PEG brought from SNF after her PEG got dislodged. Could not be reinserted in ED, later family requested assessment for swallowing, which patient passed and started on dysphagia diet.
Monitoring for appropriate oral intake. LE pain improving on Gabapentin. As per - they want to look for alternative SNF - CM aware. Multiple referrals sent, but due to complex Hx - still no acceptance
Meanwhile developed new fever on 07/27/24
A/P:
#Fever most likely 2/2 UTI
Constellation of tachycardia, fever, leukopenia, UTI,
Consistent with sepsis POA
started on 07/27/24
Bcx NTD
Ucx: enterococcus that is resistant to antibiotics given on Zosyn, vancomycin, Diflucan. Culture showing susceptibility to doxycycline. Due to renal impairment, unable to use Macrobid.
Chest XR without acute pneumonia
COVID-19, Influenza neg
Head CT without acute findings
Given AB since last week.
CT abd/pelvis without hydronephrosis or nephrolithiasis, but signs of cystitis
#dysphagia
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
started diet
GI follows, if patient fails - will need PEG at new site
#Mild leukopenia, likely medication induced, monitor.
#mild chronic anemia
recurrent, possibly 2/2 UTI
outpatient CBC and if persistent - hematology referral
#Hypokalemia
#Hypernatremia
#RICKY on CKD stage 3b with RICKY on admission
2/2 poor oral intake
Cr baseline 1.7
follow CBC , BMP in outpatient setting
#Hx of anoxic brain injury 2/2 cardiac arrest
poor judgement, frequent episodes of anxiety and agitation
Avoid BZD - causing delirium
QTc WNL - use Zyprexa PRN
Psych consulted, continue with gabapentin, risperidone, no changes to Depakote and Keppra
#Vit D deficiency
supplement
#Oral thrush
Status post Diflucan
Nystatin
HIV neg
#Hx of pulmonary embolism
on Eliquis
#hypomagnesemia
replete and follow
#DM type 2 with nephropathy
Insulin SS, DM diet, Accuchecks
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
#Essential HTN
#Anxiety/Agitation
#chronic b/l LE pain without radiculopathy
cont home meds
Neurontin helps - uptitrate PRN
DVT ppx Eliquis
Full code
Total time spent to see the patient, examine the patient, review results and chart, discuss treatment plan with patient, nursing staff, senior case manager, oracle hyperion consultant around 63 minutes
Anticipated Discharge: Within 24 hours
Subjective/Interval History
-
Date of Service: August 02, 2024
No events over night
She seems comfortable in bed, no pain issues
Objective Data
-
Labs:
Laboratory Results
08/02/24
10:11
WBC Pending
Hgb Pending
Hct Pending
Plt Count Pending
Vital Signs:
Vital Signs
Temp Pulse Resp BP Pulse Ox
98.3 F 79 18 129/71 100
08/02/24 07:17 08/02/24 07:17 08/02/24 07:17 08/02/24 07:17 08/02/24 08:00
I&O
08/01/24 08/02/24 08/03/24
06:59 06:59 06:59
Intake Total 1790 / 1790 960 / 960
Balance 1790 / 1790 960 / 960
[2024-08-02 10:32] LABS: Hematocrit 26.9 % (37.0-47.0); Hemoglobin 8.9 g/dL (12.0-16.0); Mean Corp Hgb Conc. 33.1 g/dL (33.0-37.0); Mean Corpuscular Hgb 27.7 pg (27.0-31.0); Mean Corpuscular Volume 83.8 fL (81.0-99.0); Mean Platelet Volume 9.2 fL (7.4-10.4); Platelet Count 240 10^3/uL (130-400); Red Blood Cell Count 3.21 10^6/uL (4.20-5.40); Red Cell Dist. Width 13.3 % (11.5-14.5); White Blood Cell Count 3.4 10^3/uL (4.8-10.8)
--- NOTE | 2024-08-02 10:44 | W.PN.UPDATE ---
Addendum entered and electronically signed by Meka Alvarez MD 08/02/24 11:14:
sent tiger text to dr preston re issue ? seizure history
Original Note:
Update Note
Progress Note Update
patient seen chart reviewed. spoke with nursing and case mgt. patient was very able to engage this am. she was sitting up in bed. her breakfast had just arrived. she said she had a vision of a lady sitting beside the bed early this am when she
woke up but that is gone now and she is appropriately interactive. hallucinations at the onset and offset of sleep can be normal. the patient also has a hx of macular degeneration (she was told she was in the 'early stages). she should see her
opthalmologist for follup. cm tells me she has been accepted at a new ct and is for dc tomorrow no changes made in her psych medication risperdal o.25 mg bid. also takes melatonin 5 mg q hs. she is taking depakote and keppra. it is unclear to me
whether these are for sz...i can find no mention of sz in the chart . depakote is used for mood lability in psych but keppra is generally not and it is my impression they are being prescribed for sz. patient's mood at this point seems reasonably
stable. depakote and keppra as per hospitalist.
[2024-08-02 11:19] LABS: Glucose - Point of Care 532 mg/dl (70-99)
[2024-08-02 12:04] LABS: Glucose 144 mg/dl (70-99)
[2024-08-02 12:58] LABS: Depakane 40.5 ug/ml (50.0-120.0)
--- NOTE | 2024-08-02 15:08 | CM ---
Chart reviewed and nurse outreach case manager spoke with physician plan is for skilled placement, per notes Lisa Tan to accept on Tuesday will need Auth.
Plan; Skilled placement at [facility].
[2024-08-02 15:50] VITALS: BP 115/84
[2024-08-02] MEDS: DEPAKOTE SPRINKLE PO (15:57)
[2024-08-02] MEDS: NEURONTIN PO (15:57)
[2024-08-02 17:05] LABS: Glucose - Point of Care 118 mg/dl (70-99)
[2024-08-02] MEDS: TYLENOL 650 MG PO (19:57)
[2024-08-02] MEDS: SENOKOT-S 1 TABLET PO (19:57)
[2024-08-02 21:23] LABS: Glucose - Point of Care 139 mg/dl (70-99)
[2024-08-02] MEDS: LANTUS 0.04 UNITS SC (21:59)
[2024-08-02] MEDS: MELATONIN 5 MG PO (21:59)
[2024-08-03] VITALS (7 sets, daily range): BP systolic 114–145; BP diastolic 64–83; PULSE 87
[2024-08-03] MEDS: TYLENOL 650 MG PO ×3 (06:15→15:29)
[2024-08-03 08:55] LABS: Glucose - Point of Care 105 mg/dl (70-99)
[2024-08-03] MEDS: NOVOLOG FLEXPEN-MODERATE RESISTANCE SC ×3 (09:08→17:09)
--- NOTE | 2024-08-03 09:38 | W.PN.HOSP.TC ---
Today's Communication/Plan
-
discharge
Assessment / Plan
Assessment / Plan
Physical Exam
General: Comfortable and Conversant
HEENT: Anicteric, Moist mucous membranes
Respiratory: Clear and Non Labored Respirations
Cardiac: S1/S2
GI: Soft, Non Tender
Rectal: No bleeding
Musculoskeletal: No Clubbing, No Cyanosis and No Edema
Skin: Warm and Dry
Neuro: Awake, Alert and oriented to self and surroundings. She followed simple commands. Reports loss of sensation left lower leg/ left foot.
Psych: Calm, no agitation.
54yo F with PMHx of traumatic brain injury s/p trach - removed and PEG brought from SNF after her PEG got dislodged. Could not be reinserted in ED, later family requested assessment for swallowing, which patient passed and started on dysphagia diet.
Monitoring for appropriate oral intake. LE pain improving on Gabapentin. As per - they want to look for alternative SNF - CM aware. Multiple referrals sent, but due to complex Hx - still no acceptance
Meanwhile developed new fever on 07/27/24
A/P:
#Fever , ruled out UTI as an etiology because Enterococcus VRE resulted in culture was never treated and fevers resolved. Discussed with ID No need to treat asymptomatic bacteriuria.
Possible viral induced nonspecific infection.
She did not have recurrent fever. Tolerating diet. Hemodynamically stable.
Chest XR without acute pneumonia
COVID-19, Influenza neg
Head CT without acute findings
CT abd/pelvis without hydronephrosis or nephrolithiasis, but signs of cystitis
#dysphagia
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
started diet
GI follows, if patient fails - will need PEG at new site
#Mild leukopenia, likely medication induced, monitor.
#mild chronic anemia
recurrent, possibly 2/2 UTI
outpatient CBC and if persistent - hematology referral
#Hypokalemia
#Hypernatremia
#RICKY on CKD stage 3b with RICKY on admission
2/2 poor oral intake
Cr baseline 1.7
follow CBC , BMP in outpatient setting
#Hx of anoxic brain injury 2/2 cardiac arrest
poor judgement, frequent episodes of anxiety and agitation
Avoid BZD - causing delirium
QTc WNL - use Zyprexa PRN
Psych consulted, continue with gabapentin, risperidone, no changes to Depakote and Keppra
# Left lower extremity peripheral neuropathy, does not have sensation left foot and complains of neuropathic pain, continue with Tylenol as needed. Tramadol for severe pain. Continue with gabapentin.
#Vit D deficiency
supplement
#Oral thrush
Status post Diflucan
Nystatin
HIV neg
#Hx of pulmonary embolism
on Eliquis
#hypomagnesemia
Resolved
#DM type 2 with nephropathy
Insulin SS, DM diet, Accuchecks
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
#Essential HTN
#Anxiety/Agitation
#chronic b/l LE pain without radiculopathy
cont home meds
Neurontin helps - uptitrate PRN
DVT ppx Eliquis
Full code
Total discharge time spent to see the patient, examine the patient, review results and chart, discuss discharge plan with patient, nursing staff, senior case manager, oracle hyperion consultant around 67 minutes
Anticipated Discharge: Today
Subjective/Interval History
-
Date of Service: August 03, 2024
No chest pain
No sob
No fevers
No abdominal pain
Objective Data
-
Vital Signs:
Vital Signs
Temp Pulse Resp BP Pulse Ox
98.6 F 98 20 114/64 100
08/03/24 00:14 08/03/24 00:14 08/03/24 00:14 08/03/24 00:14 08/03/24 00:14
I&O
08/02/24 08/03/24 08/04/24
06:59 06:59 06:59
Intake Total 960 / 960 480 / 480
Balance 960 / 960 480 / 480
[2024-08-03] MEDS: DEPAKOTE SPRINKLE 250 MG PO ×2 (10:00→17:14)
[2024-08-03] MEDS: LIDOCAINE 4% PATCH 2 PATCH TOPICAL (10:01)
[2024-08-03] MEDS: DEPAKOTE SPRINKLE PO (10:05)
[2024-08-03] MEDS: COREG 6.25 MG PO (10:07)
[2024-08-03] MEDS: ELIQUIS 5 MG PO (10:07)
[2024-08-03] MEDS: KEPPRA 500 MG PO (10:07)
[2024-08-03] MEDS: MIRALAX PO (10:08)
[2024-08-03] MEDS: NEURONTIN 200 MG PO ×2 (10:08→17:00)
[2024-08-03] MEDS: NORVASC 2.5 MG PO (10:08)
[2024-08-03] MEDS: THERAGRAN 1 TABLET PO (10:09)
[2024-08-03] MEDS: RISPERDAL 0.25 MG PO (10:10)
[2024-08-03] MEDS: SENOKOT-S PO (10:10)
--- NOTE | 2024-08-03 11:24 | W.DCSUMMARY ---
Discharge Summary
Discharge Data
Date of Admission: 07/19/24
Date of Discharge: 08/03/24
-
Pending Results: No
Hospital Course
54 years old female with history of anoxic brain injury from cardiac arrest/CVA was brought in from intermediate after dislodgment of feeding tube. Patient did not have signs of acute abdominal issue. She did not have abdominal pain. She was
taking Eliquis for history of VTE. Patient was evaluated by gastroenterology. Family expressed wishes to avoid CT tube if patient was able to swallow. Patient was evaluated by speech therapist. She had video swallow and was started on modified
diet. Patient tolerated diet well without signs of obstruction. Patient had history of agitation. Psychiatrist was consulted. Patient was maintained on Depakote, Keppra and gabapentin for history of anoxic brain injury and neuropathy.
Psychiatry started the patient on low-dose Risperdal with good response. Patient had one-time fever in the hospital. She had negative influenza and COVID screen. It was felt related to viral illness/reactive. Case was discussed with ID doctor
regarding positive Enterococcus VRE in urine. Blood culture was negative. Patient was diagnosed with asymptomatic bacteriuria. She remained hemodynamic stable. Family requested that patient to be sent to a different intermediate. Case
management was involved in discharge planning. Patient was discharged in a stable condition.
Discharge Plan
-
Patient Disposition: Alf/SNF
Discharge Diagnosis/Procedures: Dislodged PEG tube
Dysphagia, now she is tolerating modified diet.
Oral Thrush, treated.
History of traumatic brain injury/anoxic brain injury postcardiac arrest and CVA in March 2024 status post tracheostomy/PEG tube.
Left lower extremity peripheral neuropathy
Hypokalemia, Hypernatremia, treated.
Vitamin D deficiency
Condition: Fair
Diet: Diabetic, Carb Controlled
Additional Diets: Recommend:
1. IDDSI Level 4 Puree, Thin Liquids
2. FULL supervision and assistance
3. Strategies: reduce environmental distractions,use sauces to thin down thick purees, alternate sips/bites, check for oral residue/pocketing, oral care after meals with use of suctioning
4. Medications: crushed in puree if medically cleared to do so
5. Dysphagia tx at the acute care level and after D/C at this time. Goals to improve mastication, bolus cohesion, bolus transfers/oral clearance, and use of compensations.
6. Language/cognitive tx after D/C from the acute care level.
Activity: As tolerated
Driving Restrictions: No driving
Blood Work: BMP, CBC in 2-3 days at [facility] to assess potassium level and leukopenia
Referrals:
Wicho Aaron DO [Family Provider] - in less than 1 week
Dane Mathews MD [Active] - in one to two weeks (With CBC)
Prescriptions:
New
ergocalciferol (vitamin D2) 1,250 mcg (50,000 unit) Capsule
50,000 unit PO Q7D 42 Days Qty: 6 0RF
amlodipine 2.5 mg Tablet
2.5 mg PO DAILY Qty: 30 0RF
gabapentin 100 mg Capsule
200 mg PO TID Qty: 90 0RF
acetaminophen 325 mg Tablet
650 mg PO Q4HPRN PRN (Reason: mild pain/ fever>100.5F) Qty: 90 0RF
risperidone 0.25 mg Tablet
0.25 mg PO BID Qty: 60 0RF
multivitamin with folic acid [Tab-A-Mark] 400 mcg Tablet
1 tab PO DAILY Qty: 30 0RF
melatonin 5 mg Tablet
5 mg PO HS Qty: 30 0RF
Continued
bisacodyl 10 mg Suppository
10 mg AL DAILYPRN PRN (Reason: constipation)
mupirocin calcium 2 % Cream
1 applic TOPICAL DAILY
levetiracetam [Keppra] 500 mg Tablet
500 mg PO BID Qty: 0 0RF
divalproex [Depakote Sprinkles] 125 mg Capsule, Delayed Rel Sprinkle
250 mg PO Q8H Qty: 0 0RF
Changed
carvedilol 6.25 mg Tablet
6.25 mg PO BID Qty: 0 0RF
fexofenadine 60 mg Tablet
60 mg PO Q6HPRN PRN (Reason: allergies) Qty: 0 0RF
apixaban 5 mg Tablet
5 mg PO BID Qty: 0 0RF
ipratropium-albuterol 0.5 mg-3 mg(2.5 mg base)/3 mL Solution For Nebulization
3 ml INHALATION QIDPRN PRN (Reason: sob) Qty: 0 0RF
insulin glargine 100 unit/mL Solution
5 unit SC HS Qty: 0 0RF
tramadol 50 mg Tablet
50 mg PO Q8HPRN PRN (Reason: Moderate to severe pain) Qty: 10 0RF
Discontinued
hydralazine 10 mg Tablet
10 mg feeding tube TID
ondansetron HCl 4 mg Tablet
4 mg feeding tube Q8HPRN PRN (Reason: nausea)
midodrine 5 mg Tablet
5 mg feeding tube [id number]
Rx Instructions:
1 hour before dialysis
insulin regular human 100 unit/mL Solution
10 unit SC Q6H
darbepoetin benji in polysorbat 25 mcg/mL Solution
25 mcg SC FR Qty: 0
Rx Instructions:
given at diaylsis staff
hydroxyzine HCl 10 mg/5 mL solution
20 mg feeding tube QID
lorazepam 1 mg tablet
1 mg feeding tube Q6HPRN PRN (Reason: anxiety)
trazodone 50 mg Tablet
25 mg feeding tube HS
Discharge Orders:
Discharge Patient (As Directed); Ordered 08/03/24
Ordered By: Priyanka Rubio
Discharge Date and Time
Print Language: ARABIC
--- NOTE | 2024-08-03 11:30 | CM ---
Addendum entered by Gloria Johns 08/03/24 15:35:
Patient scheduled for 6:30 p.m. ambulance transport
Addendum entered by Gloria Johns 08/03/24 15:03:
Auth approved, [id number] approved 08/03-08/12, updates to [facility] at [facility], updates to patient and family. Will await ambulance transport time.
Addendum entered by Gloria Johns 08/03/24 12:44:
[facility]
Report: [phone]

Original Note:
CM reviewed chart, [facility] able to accept patient today, auth submitted through [employer], pending reference number [id number]. Patient will require ambulance transport, forms on chart. CM will continue to check auth status, will
continue to follow for all discharge planning needs.
Plan; [facility], auth pending.
--- NOTE | 2024-08-03 12:49 | W.PN.UPDATE ---
Update Note
Progress Note Update
patient seen chart reviewed. spoke with nursing. mrs neri reports she feels very well 'as good as i did a year ago. ' she is hoping for dc to [facility] today. my understanding is that an authorization is yet to come for transfer. no change
recommended in psych meds. psych will sign off.
[2024-08-03 13:02] LABS: Glucose - Point of Care 147 mg/dl (70-99)
--- NOTE | 2024-08-03 15:27 | W.PN.ONC2 ---
Today's Communication / Plan
-
Pending authorization for d/c to [facility]. Repeat CBC at [facility]. Would consider component of drug side effect if cytopenia persists outpatient.
Impression
Impression
54 yo Female
Leukopenia
Neutropenia
Anemia
Plan
Plan
Stable patient, pending authorization for d/c to [facility].
#Leukopenia
#Neutropenia
- Likely secondary to infection with UTI vs. drug related as Depakote and Levetiracetam can cause cytopenia. Afebrile and not septic at this time, no role for GCSF.
- Would recommend weekly CBCs after discharge with follow up with hematology as OP. If leukopenia/neutropenia does not resolve on outpatient labs, will consider further workup.
#Anemia
- Persistent anemia during admission with Hgb 8.9-11.2. Hgb was 8.3 back in May of 2024. MCV 83.8.
- No iron studies available this admission, however she seems to have chronic anemia prior to admission. 06/07/24 Ferritin was 906 H, Iron 75, TIBC 203 L, Saturation 36%. Likely ACD with possible component of CKD.
- Will follow with out patient CBCs as above and do further workup as outpatient if necessary.
Subjective/Objective
Chief Complaint
Leukopenia
Neutropenia
Subjective
Feels much better today than yesterday. no fever, chills, night sweats. No other acute complaints.
Vital Signs:
Vital Signs
Temp Pulse Resp BP Pulse Ox
98.6 F 86 20 124/67 100
08/03/24 11:00 08/03/24 11:00 08/03/24 11:00 08/03/24 11:00 08/03/24 11:00
Lab Results:
Laboratory Data
WBC 3.4 10^3/uL (4.8-10.8) L 08/02/24 10:11
Hgb 8.9 g/dL (12.0-16.0) L 08/02/24 10:11
Plt Count 240 10^3/uL (130-400) 08/02/24 10:11
APTT 31.8 Sec (23.4-35.0) 07/21/24 08:36
eGFR 29.50 07/30/24 09:55
Physical Exam
HEENT: Moist Mucous Membranes; No Jaundice
Cardiology: Normal Sinus Rhythm, S1 and S2; No Murmur
Pulmonary: Clear; No Wheezes, Rales or Rhonchi
GI: Soft and Normal Bowel Sounds; No Distended
Extremities: No C/C/E
Review of Systems
Review of Systems
Constitutional: Denies Fever or Fatigue
Head: Denies Sore Throat or Hearing Loss
Respiratory: Denies Dyspnea or Cough
Cardiovascular: Denies Chest Pain or Palpitations
Gastrointestinal: Denies Nausea/Vomiting or Diarrhea
Genitourinary: Denies Hematuria
Skin: Denies Rash or Pruritis
Neurological: Reports Other (Post stroke sequelae of BL LE weakness, intermittent expressive aphasia, BLUE weakness)
Hem/Lymphatic: Denies Night Sweats or Swollen Glands
[2024-08-03 16:47] LABS: Glucose - Point of Care 128 mg/dl (70-99)
[2024-08-03] MEDS: NEURONTIN PO (17:15)
== END 2024-08-03 20:13 | DRG 394 ==
LOC: 4 WEST ACU 17:27
PROVIDERS: Hospitalist; Internal Medicine; Physician Assistant Medical; ADMITTING PHYSICIAN Student in an Organized Health Care Education/Training Program; ATTENDING PHYSICIAN Internal Medicine; CONSULT PHYSICIAN Internal Medicine; CONSULT PHYSICIAN Psychiatry & Neurology Psychiatry; EMERGENCY PHYSICIAN Emergency Medicine; FAMILY PHYSICIAN Internal Medicine; OTHER PHYSICIAN Internal Medicine Hematology & Oncology
DX: K94.23 Gastrostomy malfunction (principal); B37.0 Candidal stomatitis; N18.4 Chronic kidney disease, stage 4 (severe); E87.0 Hyperosmolality and hypernatremia; N17.9 Acute kidney failure, unspecified; E11.22 Type 2 diabetes mellitus with diabetic chronic kidney disease; D63.1 Anemia in chronic kidney disease; I12.9 Hypertensive chronic kidney disease with stage 1 through stage 4 chronic kidney disease, or unspecified chronic kidney disease; F41.9 Anxiety disorder, unspecified; E87.6 Hypokalemia; E86.0 Dehydration; I69.318 Other symptoms and signs involving cognitive functions following cerebral infarction; E55.9 Vitamin D deficiency, unspecified; R13.19 Other dysphagia; G47.33 Obstructive sleep apnea (adult) (pediatric); R06.89 Other abnormalities of breathing; R50.9 Fever, unspecified; D70.2 Other drug-induced agranulocytosis; T50.915A Adverse effect of multiple unspecified drugs, medicaments and biological substances, initial encounter; E11.42 Type 2 diabetes mellitus with diabetic polyneuropathy; R82.71 Bacteriuria; Y83.8 Other surgical procedures as the cause of abnormal reaction of the patient, or of later complication, without mention of misadventure at the time of the procedure; Z11.52 Encounter for screening for COVID-19; Z86.711 Personal history of pulmonary embolism; Z88.6 Allergy status to analgesic agent; Z88.5 Allergy status to narcotic agent; Z87.820 Personal history of traumatic brain injury; Z86.74 Personal history of sudden cardiac arrest; Z79.4 Long term (current) use of insulin; Z79.01 Long term (current) use of anticoagulants; Z79.899 Other long term (current) drug therapy
CPT/HCPCS: 70450; 71045; 71250; 73600; 74176; 74230; 80048; 80053; 80164; 80202; 81003; 81015; 82040; 82306; 82805; 82947; 82962; 83036; 83735; 83970; 84100; 84132; 84145; 84443; 85025; 85027; 85730; 87040; 87070; 87077; 87086; 87186; 87389; 87502; 87811; 92507; 92523; 92526; 92611; 93005; 97110; 97163; 97167; 97530; 97535; 99285; J2358